=== PATIENT | female | born 1965 | race Caucasian/White ===

== ENCOUNTER → 2016-12-10 | Outpatient (CLI) | payer BC ==
--- NOTE | 2016-12-11 14:03 | MM ---
Reason for exam: screening (asymptomatic). Last mammogram was performed 1 year ago. History: Patient is postmenopausal, has history of endometrial cancer at age 34, and is nulliparous. Family history of breast cancer in maternal aunt at age 64. Physical Findings: A clinical breast exam by your physician is recommended on an annual basis and results should be correlated with mammographic findings. MG Screening Mammo w CAD Bilateral CC and MLO view(s) were taken. Prior study comparison: December 07, 2015, bilateral MG screening mammo w CAD. October 12, 2014, bilateral MG screening mammo w CAD. July 10, 2013, bilateral digital screening mammo w/CAD. There are scattered fibroglandular densities. Scattered benign oil cysts and skin calcifications redemonstrated. No significant changes when compared with prior studies. ASSESSMENT: Negative, BI-RAD 1 RECOMMENDATION: Routine screening mammogram of both breasts in 1 year.
== END | disposition home or self-care (01) ==
LOC: RADMAMWWP 11:06
PROVIDERS: ATTEND Obstetrics & Gynecology
DX: Z12.31 Encounter for screening mammogram for malignant neoplasm of breast (principal)

== ENCOUNTER 2017-07-22 15:36 | Inpatient (IN) | payer BC ==
--- NOTE | 2017-07-22 16:12 | XR ---
EXAMINATION TYPE: XR chest 2V DATE OF EXAM: 07/22/2017 COMPARISON: 01/23/2014 TECHNIQUE: PA and lateral views submitted. HISTORY: Shortness of breath FINDINGS: Bilateral lower lobe infiltrate and small effusion. Heart is enlarged and is postoperative change wit h mild central interstitial prominence. No pneumothorax. IMPRESSION: 1. Basilar infiltrate and small effusion correlate for mild CHF.
[2017-07-22 16:54] LABS: Basophils # (A) 0.1 k/uL (0-0.2); Basophils % (A) 1 %; Eosinophils # (A) 0.1 k/uL (0-0.7); Eosinophils % (A) 2 %; HCT 30.5 % (34.0-46.0); HGB 10.5 gm/dL (11.4-16.0); Lymphocytes # (A) 2.4 k/uL (1.0-4.8); Lymphocytes % (A) 32 %; MCH 27.9 pg (25.0-35.0); MCHC 34.3 g/dL (31.0-37.0); MCV 81.3 fL (80.0-100.0); Mean Platelet Volume 7.6; Monocytes # (A) 0.4 k/uL (0-1.0); Monocytes % (A) 6 %; Neutrophils # (A) 4.4 k/uL (1.3-7.7); Neutrophils % (A) 58 %; Platelet Count 304 k/uL (150-450); Poikilocytosis Slight; RBC 3.75 m/uL (3.80-5.40); WBC 7.5 k/uL (3.8-10.6)
[2017-07-22 17:05] LABS: ALT 16 U/L (9-52); AST 18 U/L (14-36); Albumin 4.3 g/dL (3.5-5.0); Alkaline Phosphatase 53 U/L (38-126); Anion Gap 16 mmol/L; Blood Urea Nitrogen 16 mg/dL (7-17); Calcium 9.2 mg/dL (8.4-10.2); Carbon Dioxide 22 mmol/L (22-30); Chloride 103 mmol/L (98-107); Glucose 141 mg/dL (74-99); INR 1.1 (<1.2); Partial Thromboplastin Time 23.6 sec (22.0-30.0); Potassium 4.4 mmol/L (3.5-5.1); Prothrombin Time 10.5 sec (9.0-12.0); Sodium 141 mmol/L (137-145); Total Bilirubin 0.8 mg/dL (0.2-1.3); Total Protein 7.6 g/dL (6.3-8.2)
[2017-07-22 17:16] LABS: Creatine Kinase 120 U/L (30-135)
[2017-07-22 17:29] LABS: Creatine Kinase MB 2.4 ng/mL (0.0-2.4); Troponin I <0.012 ng/mL (0.000-0.034)
[2017-07-22] MEDS ORDERED: ASPIRIN 81 MG PO STA (20:14)
[2017-07-22] MEDS ORDERED: FUROSEMIDE 10 MG/ML 10 ML VIAL IV STA (20:14)
[2017-07-22] MEDS ORDERED: NITROGLYCERIN OINT 1 INCH/GM PACKET TOPICAL STA (20:14)
[2017-07-22] MEDS: MAGNESIUM SULFATE-D5W PMX 1 GM in DEXTROSE/WATER 1 100ML.BAG IVPB SCH ×2 (20:46→22:51)
--- NOTE | 2017-07-22 22:31 | ED ---
SOB HPI - General Chief Complaint: Shortness of Breath Stated Complaint: SOB Time Seen by Provider: 07/22/17 20:00 Source: patient Mode of arrival: ambulatory Limitations: no limitations - History of Present Illness Initial Comments: This 51-year-old white female presents with a complaint of shortness of breath. This is much worse with any exertion. She denies any actual chest pain. She denies any significant cough. The shortness of breath is worse with lying down and she's been sitting in a recliner the past few nights. She does have a history of valvular surgery approximately 11 years ago. 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 Hodge every 6 months. She usually gets an echocardiogram every 6 months as well. She denies any known coronary artery disease. She denies any pulmonary problems. There is no leg pain. She has had some swelling into her legs and feet which is abnormal for her. She denies any history of congestive heart failure. No other complaints or modifying factors. - Related Data Home Medications Medication Instructions Recorded Confirmed Cetirizine HCl [Zyrtec] 10 mg PO HS 01/23/14 07/22/17 Dorzolamide HCl/Timolol Maleat 1 drop BOTH EYES BID 01/23/14 07/22/17 [Cosopt Eye Drops] Losartan/Hydrochlorothiazide 1 tab PO DAILY 01/23/14 07/22/17 [Hyzaar 100-25 Tablet] Metoprolol Tartrate [Lopressor] 25 mg PO BID 01/23/14 07/22/17 Omeprazole [PriLOSEC] 20 mg PO DAILY 01/23/14 07/22/17 Salmeterol Xinafoate [Serevent 1 puff INHALATION RT-BID PRN 01/23/14 07/22/17 Diskus] glyBURIDE/METFORMIN HCL 2 tab PO BID 01/23/14 07/22/17 [Glucovance 5-500 mg Tablet] Ergocalciferol [Vitamin D2] 50,000 unit PO FR 07/22/17 07/22/17 Rosuvastatin Calcium [Crestor] 10 mg PO HS 07/22/17 07/22/17 Vits A,C,E/Lutein/Minerals 1 tab PO BID 07/22/17 07/22/17 [Ocuvite with Lutein Tablet] amLODIPine [Norvasc] 5 mg PO DAILY 07/22/17 07/22/17 sitaGLIPtin [Januvia] 100 mg PO HS 07/22/17 07/22/17 Allergies Allergy/AdvReac Type Severity Reaction Status Date / Time fluticasone propionate Allergy Unknown Verified 07/22/17 15:57 [From Flovent Diskus] methocarbamol [From Robaxin] Allergy Unknown Verified 07/22/17 15:57 Penicillins Allergy Unknown Verified 07/22/17 15:57 Review of Systems ROS Statement: Those systems with pertinent positive or pertinent negative responses have been documented in the HPI. ROS Other: All systems not noted in ROS Statement are negative. Past Medical History Past Medical History: Asthma, Cancer, Diabetes Mellitus, Hyperlipidemia, Hypertension Additional Past Medical History / Comment(s): cervical CA, glaucoma History of Any Multi-Drug Resistant Organisms: None Reported Past Surgical History: Coronary Bypass/CABG, Hysterectomy Past Psychological History: No Psychological Hx Reported Smoking Status: Never smoker Past Alcohol Use History: None Reported Past Drug Use History: None Reported General Exam - General Exam Comments Initial Comments: GENERAL: The patient is well nourished and well hydrated. VITAL SIGNS: Heart rate, blood pressure, respiratory rate reviewed as recorded in nurse's notes. EYES: Pupils are round and reactive. Extraocular movements are intact. No conjunctival / lid redness or swelling. ENT: No external evidence of injury, swelling, or ecchymosis. Airway is patent. Throat is clear. NECK: Nontender. No swelling or evidence of injury. No subcutaneous emphysema. Trachea is midline. No thyroid mass. HEART: Regular rate and rhythm. Good peripheral pulses. LUNGS/CHEST: Breath sounds clear and equal bilaterally. No rales, rhonchi, or wheezes. No ecchymosis, subcutaneous emphysema, or tenderness. ABDOMEN: Abdomen soft without tenderness. No palpable masses or organomegaly. No peritoneal signs. No abdominal wall swelling or ecchymosis. EXTREMITIES: No extremity tenderness. Normal muscle tone and function. No thoracolumbar tenderness. There may be some very minimal bilateral lower extremity swelling. There is no pitting edema. NEUROLOGIC: Sensation is grossly intact. Cranial nerve exam reveals face is symmetrical, tongue is midline, speech is clear. SKIN: No abrasions or ecchymosis is noted. No induration or masses noted. PSYCHIATRIC: Alert and oriented. Appropriate behavior and judgment. Limitations: no limitations Course Vital Signs 07/22/17 07/22/17 15:55 20:57 Temperature 97.3 F L Pulse Rate 62 Respiratory 18 Rate Blood Pressure 164/74 167/77 O2 Sat by Pulse 100 Oximetry Medical Decision Making - Medical Decision Making The patient was seen and examined. All diagnostics were reviewed. The EKG shows a normal sinus rhythm with a first-degree AV block. There is evidence of a left bundle branch block as well. There is some T-wave inversions in 1 and aVL. The NJ interval is 270, the QRS duration is 164, and the QTc interval is 511. The patient also had a chest x-ray which does show a degree of congestive heart failure per radiology. The laboratory came back showing an elevation of the BNP. In addition, the magnesium is quite low at 1.0. She does receive aspirin as well as some Nitropaste and Lasix intravenously. She does put out a fair amount of urine. It is felt as though she does have a degree of congestive heart failure. It is worrisome as to whether or not her valve is working appropriately. It is felt as though she would benefit from admission with cardiology consult and echocardiogram. She is agreeable. He says discussed with internal medicine and they're agreeable to admission as well. - Lab Data Result diagrams: 07/22/17 16:40 07/22/17 16:40 Lab Results 07/22/17 07/22/17 07/22/17 Range/Units 16:40 16:40 16:40 WBC 7.5 (3.8-10.6) k/uL RBC 3.75 L (3.80-5.40) m/uL Hgb 10.5 L (11.4-16.0) gm/dL Hct 30.5 L (34.0-46.0) % MCV 81.3 (80.0-100.0) fL MCH 27.9 (25.0-35.0) pg MCHC 34.3 (31.0-37.0) g/dL RDW 16.0 H (11.5-15.5) % Plt Count 304 (150-450) k/uL Neutrophils % 58 % Lymphocytes % 32 % Monocytes % 6 % Eosinophils % 2 % Basophils % 1 % Neutrophils # 4.4 (1.3-7.7) k/uL Lymphocytes # 2.4 (1.0-4.8) k/uL Monocytes # 0.4 (0-1.0) k/uL Eosinophils # 0.1 (0-0.7) k/uL Basophils # 0.1 (0-0.2) k/uL Poikilocytosis Slight PT (9.0-12.0) sec INR (<1.2) APTT (22.0-30.0) sec Sodium 141 (137-145) mmol/L Potassium 4.4 (3.5-5.1) mmol/L Chloride 103 (98-107) mmol/L Carbon Dioxide 22 (22-30) mmol/L Anion Gap 16 mmol/L BUN 16 (7-17) mg/dL Creatinine 0.80 (0.52-1.04) mg/dL Est GFR (CKD-EPI)AfAm >90 (>60 ml/min/1.73 sqM) Est GFR (CKD-EPI)NonAf 85 (>60 ml/min/1.73 sqM) Glucose 141 H (74-99) mg/dL Calcium 9.2 (8.4-10.2) mg/dL Magnesium 1.0 L* (1.6-2.3) mg/dL Total Bilirubin 0.8 (0.2-1.3) mg/dL AST 18 (14-36) U/L ALT 16 (9-52) U/L Alkaline Phosphatase 53 (38-126) U/L Total Creatine Kinase 120 (30-135) U/L CK-MB (CK-2) 2.4 (0.0-2.4) ng/mL CK-MB (CK-2) Rel Index 2.0 Troponin I <0.012 (0.000-0.034) ng/mL NT-Pro-B Natriuret Pep pg/mL Total Protein 7.6 (6.3-8.2) g/dL Albumin 4.3 (3.5-5.0) g/dL 07/22/17 07/22/17 Range/Units 16:40 16:40 WBC (3.8-10.6) k/uL RBC (3.80-5.40) m/uL Hgb (11.4-16.0) gm/dL Hct (34.0-46.0) % MCV (80.0-100.0) fL MCH (25.0-35.0) pg MCHC (31.0-37.0) g/dL RDW (11.5-15.5) % Plt Count (150-450) k/uL Neutrophils % % Lymphocytes % % Monocytes % % Eosinophils % % Basophils % % Neutrophils # (1.3-7.7) k/uL Lymphocytes # (1.0-4.8) k/uL Monocytes # (0-1.0) k/uL Eosinophils # (0-0.7) k/uL Basophils # (0-0.2) k/uL Poikilocytosis PT 10.5 (9.0-12.0) sec INR 1.1 (<1.2) APTT 23.6 (22.0-30.0) sec Sodium (137-145) mmol/L Potassium (3.5-5.1) mmol/L Chloride (98-107) mmol/L Carbon Dioxide (22-30) mmol/L Anion Gap mmol/L BUN (7-17) mg/dL Creatinine (0.52-1.04) mg/dL Est GFR (CKD-EPI)AfAm (>60 ml/min/1.73 sqM) Est GFR (CKD-EPI)NonAf (>60 ml/min/1.73 sqM) Glucose (74-99) mg/dL Calcium (8.4-10.2) mg/dL Magnesium (1.6-2.3) mg/dL Total Bilirubin (0.2-1.3) mg/dL AST (14-36) U/L ALT (9-52) U/L Alkaline Phosphatase (38-126) U/L Total Creatine Kinase (30-135) U/L CK-MB (CK-2) (0.0-2.4) ng/mL CK-MB (CK-2) Rel Index Troponin I (0.000-0.034) ng/mL NT-Pro-B Natriuret Pep 1210 pg/mL Total Protein (6.3-8.2) g/dL Albumin (3.5-5.0) g/dL Disposition Clinical Impression: CHF (congestive heart failure), Valvular disease, Hypertension, Left bundle branch block, Hypomagnesemia, Dyspnea, Anemia Disposition: ADMITTED IP TO THIS [facility] Condition: Fair Time of Disposition: 22:37 Decision Date: 07/22/17 Decision Time: 22:37
[2017-07-22] MEDS ORDERED: FORMOTEROL FUMARATE 20 MCG/2 ML NEBU INHALATION PRN (22:40)
[2017-07-23 04:28] LABS: Basophils % (A) 0 %; Eosinophils # (A) 0.1 k/uL (0-0.7); Eosinophils % (A) 2 %; HCT 30.7 % (34.0-46.0); HGB 9.8 gm/dL (11.4-16.0); Hypochromasia Slight; Lymphocytes # (A) 2.5 k/uL (1.0-4.8); Lymphocytes % (A) 36 %; MCH 26.5 pg (25.0-35.0); MCHC 31.9 g/dL (31.0-37.0); MCV 83.3 fL (80.0-100.0); Mean Platelet Volume 7.6; Monocytes # (A) 0.4 k/uL (0-1.0); Monocytes % (A) 6 %; Neutrophils # (A) 3.7 k/uL (1.3-7.7); Neutrophils % (A) 54 %; Platelet Count 266 k/uL (150-450); RBC 3.69 m/uL (3.80-5.40); RDW 15.7 % (11.5-15.5); WBC 6.8 k/uL (3.8-10.6)
[2017-07-23 04:44] LABS: Anion Gap 15 mmol/L; Blood Urea Nitrogen 18 mg/dL (7-17); Calcium 9.3 mg/dL (8.4-10.2); Carbon Dioxide 24 mmol/L (22-30); Chloride 102 mmol/L (98-107); Glucose 138 mg/dL (74-99); Magnesium 1.5 mg/dL (1.6-2.3); Potassium 3.6 mmol/L (3.5-5.1); Sodium 141 mmol/L (137-145)
[2017-07-23 05:12] LABS: Creatine Kinase MB 1.3 ng/mL (0.0-2.4); Troponin I <0.012 ng/mL (0.000-0.034)
[2017-07-23 06:31] LABS: Glucose,Whole Blood 149 mg/dL (75-99)
[2017-07-23] MEDS: PANTOPRAZOLE 40 MG TABLET PO SCH (07:04)
[2017-07-23] MEDS: glipiZIDE 10 MG TAB PO SCH ×2 (07:04→17:27)
[2017-07-23] MEDS: metFORMIN 500 MG TAB PO SCH ×2 (07:04→17:27)
[2017-07-23] MEDS: ASPIRIN 325 MG TAB PO SCH (08:40)
[2017-07-23] MEDS: FUROSEMIDE 10 MG/ML 4 ML VIAL IV SCH ×2 (08:41→20:11)
[2017-07-23] MEDS: amLODIPine 5 MG TAB PO SCH (08:41)
[2017-07-23] MEDS: ENOXAPARIN 40 MG/0.4 ML SYRINGE SQ SCH (08:42)
[2017-07-23] MEDS: VIT A,C & E-LUTEIN-MINERALS 1 EACH TAB PO SCH ×2 (08:42→20:10)
[2017-07-23] MEDS: METOPROLOL TARTRATE 25 MG TAB PO SCH ×2 (08:42→20:10)
[2017-07-23] MEDS: NITROGLYCERIN OINT 1 INCH/GM PACKET TOPICAL SCH ×4 (08:42→20:12)
[2017-07-23] MEDS ORDERED: PNEUMOCOCCAL VACC-PNEUMOVAX 23 25 MCG/0.5 ML VIAL IM ONE (09:00)
[2017-07-23] MEDS ORDERED: LOSARTAN-HCTZ 50-12.5 MG 1 EACH TAB PO SCH (09:00)
[2017-07-23 11:39] LABS: Glucose,Whole Blood 225 mg/dL (75-99)
--- NOTE | 2017-07-23 11:39 | ECHOF ---
Referral Reason:Heart Failure MEASUREMENTS -------- HEIGHT: 154.9 cm WEIGHT: 81.7 kg BP: 125/59 IVSd: 0.9 cm (0.6 - 1.1) LVIDd: 5.6 cm (3.9 - 5.3) LVPWd: 1.2 cm (0.6 - 1.1) IVSs: 1.3 cm LVIDs: 3.8 cm LVPWs: 1.9 cm LAESV Index (A-L): 49.63 ml/m Ao Diam: 2.9 cm (2.0 - 3.7) AV Cusp: 1.9 cm (1.5 - 2.6) LA Diam: 4.9 cm (2.7 - 3.8) MV EXCURSION: 12.777 mm (> 18.000) MV EF SLOPE: 56 mm/s (70 - 150) EPSS: 1.9 cm MV E Fritz: 1.63 m/s MV DecT: 256 ms MV A Fritz: 0.21 m/s MV E/A Ratio: 7.76 AV maxP.18 mmHg AV meanP.60 mmHg AR PHT: 707 ms RAP: 5.00 mmHg RVSP: 42.07 mmHg FINDINGS -------- Sinus rhythm. This was a technically difficult study with suboptimal views. The left ventricular size upper limits of normal. There is borderline concentric left ventricular h ypertrophy. Overall left ventricular systolic function is mild-moderately impaired with, an EF betw een 40 - 45 %. There is paradoxical/dysynergic septal motion consistent with post-operative status. Apical septum LV wall motion is hypokinetic. The right ventricle is normal in size and function. LA is severely dilated >40 ml/m2 The right atrium is normal in size. Lumason used There is mild aortic regurgitation. There is mild aortic stenosis present. Peak/mean gradient acr oss the Aortic Valve is 20.18mmHg / 11.60mmHg. Can't exclude possible Bicuspid Aov. The mitral valve leaflets are mildly thickened. Cbaalcct-ec-zshjie mitral regurgitation is present. Moderate to severe tricuspid regurgitation present. There is mild pulmonary hypertension. The rig ht ventricular systolic pressure, as measured by Doppler, is 42.07mmHg. Pulmonic valve appears structurally normal. The aortic root size is normal. Normal inferior vena cava with normal inspiratory collapse consistent with estimated right atrial pre ssure of 5 mmHg. The pericardium is normal. CONCLUSIONS -------- 1. Sinus rhythm. 2. This was a technically difficult study with suboptimal views. 3. The left ventricular size is normal. 4. There is borderline concentric left ventricular hypertrophy. 5. Overall left ventricular systolic function is mild-moderately impaired with, an EF between 40 - 45 %. 6. There is paradoxical/dysynergic septal motion consistent with post-operative status. 7. Apical septum LV wall motion is hypokinetic. 8. The right ventricle is normal in size and function. 9. LA is severely dilated >40 ml/m2 10. The right atrium is normal in size. 11. Lumason used 12. There is mild aortic regurgitation. 13. There is mild aortic stenosis present. 14. Peak/mean gradient across the Aortic Valve is 20.18mmHg / 11.60mmHg. 15. Can't exclude possible Bicuspid Aov. 16. The mitral valve leaflets are mildly thickened. 17. Moderate to severe tricuspid regurgitation present. 18. There is mild pulmonary hypertension. 19. The right ventricular systolic pressure, as measured by Doppler, is 42.07mmHg. 20. Pulmonic valve appears structurally normal. 21. The aortic root size is normal. 22. Normal inferior vena cava with normal inspiratory collapse consistent with estimated right atrial pressure of 5 mmHg. 23. The pericardium is normal. [employer] BR[employer] ARTIST: Divya [place]
[2017-07-23] MEDS ORDERED: Magnesium Replacement Protocol 1 EACH MISC MISCELLANE PRN (12:14)
[2017-07-23] MEDS ORDERED: Potassium Replacement Protocol 1 EACH MISC MISCELLANE PRN (12:14)
[2017-07-23 12:16] LABS: Creatine Kinase MB 1.5 ng/mL (0.0-2.4); Troponin I <0.012 ng/mL (0.000-0.034)
--- NOTE | 2017-07-23 12:37 | P.HPIM ---
History of Present Illness Patient is a 51-year-old female with history of septoplasty for hypertrophic cardiomyopathy came in with compensative shortness of breath? Orthopnea and PND going on for about a week progressively worse. Patient denied any fever chills cough runny nose. Patient is found to have bilateral pleural effusions pulmonary edema on the chest x-ray with mildly elevated BNP of 1600 echocardiogram showed ejection fraction of 45%. Patient is receiving Lasix and the improvement in shortness of breath. Patient presently doesn't have any pedal edema apparently patient had pedal edema when she came in her JVD also improved. Patient was evaluated by cardiology patient is on 40 IV twice a day of Lasix patient doesn't take Lasix at home is on losartan hydrochloride thiazide combination at home. Review of Systems REVIEW OF SYSTEMS: CONSTITUTIONAL: No fever, no malaise, no fatigue. HEENT: No recent visual problems or hearing problems. Denied any sore throat. CARDIOVASCULAR: No chest pain,no palpitations, no syncope. PULMONARY: no cough, no hemoptysis. GASTROINTESTINAL: No diarrhea, no nausea, no vomiting, no abdominal pain. Normoactive bowel sounds. NEUROLOGICAL: No headaches, no weakness, no numbness. HEMATOLOGICAL: Denies any bleeding or petechiae. GENITOURINARY: Denies any burning micturition, frequency, or urgency. MUSCULOSKELETAL/RHEUMATOLOGICAL: Denies any joint pain, swelling, or any muscle pain. ENDOCRINE: Denies any polyuria or polydipsia. The rest of the 14-point review of systems is negative. Past Medical History Past Medical History: Asthma, Cancer, Diabetes Mellitus, Hyperlipidemia, Hypertension Additional Past Medical History / Comment(s): cervical CA, glaucoma (both eyes) . pt has hypertrophic cardiomyopathy History of Any Multi-Drug Resistant Organisms: None Reported Past Surgical History: Coronary Bypass/CABG, Heart Catheterization, Hysterectomy Past Anesthesia/Blood Transfusion Reactions: No Reported Reaction Past Psychological History: No Psychological Hx Reported Smoking Status: Never smoker Past Alcohol Use History: None Reported Past Drug Use History: None Reported - Past Family History Father Family Medical History: Myocardial Infarction ([place]) Mother Family Medical History: AFIB, Cancer Additional Family Medical History / Comment(s): unknown type of CA Medications and Allergies Home Medications Medication Instructions Recorded Confirmed Type Cetirizine HCl [Zyrtec] 10 mg PO HS 01/23/14 07/22/17 History Dorzolamide HCl/Timolol Maleat 1 drop BOTH EYES BID 01/23/14 07/22/17 History [Cosopt Eye Drops] Losartan/Hydrochlorothiazide 1 tab PO DAILY 01/23/14 07/22/17 History [Hyzaar 100-25 Tablet] Metoprolol Tartrate [Lopressor] 25 mg PO BID 01/23/14 07/22/17 History Omeprazole [PriLOSEC] 20 mg PO DAILY 01/23/14 07/22/17 History Salmeterol Xinafoate [Serevent 1 puff INHALATION RT-BID PRN 01/23/14 07/22/17 History Diskus] glyBURIDE/METFORMIN HCL 2 tab PO BID 01/23/14 07/22/17 History [Glucovance 5-500 mg Tablet] Ergocalciferol [Vitamin D2] 50,000 unit PO FR 07/22/17 07/22/17 History Rosuvastatin Calcium [Crestor] 10 mg PO HS 07/22/17 07/22/17 History Vits A,C,E/Lutein/Minerals 1 tab PO BID 07/22/17 07/22/17 History [Ocuvite with Lutein Tablet] amLODIPine [Norvasc] 5 mg PO DAILY 07/22/17 07/22/17 History sitaGLIPtin [Januvia] 100 mg PO HS 07/22/17 07/22/17 History Allergies Allergy/AdvReac Type Severity Reaction Status Date / Time fluticasone propionate Allergy Unknown Verified 07/22/17 15:57 [From Flovent Diskus] methocarbamol [From Robaxin] Allergy Unknown Verified 07/22/17 15:57 Penicillins Allergy Unknown Verified 07/22/17 15:57 Physical Exam Vitals: Vital Signs Temp Pulse Pulse Resp BP BP Pulse Ox 07/23/17 11:05 97 F L 55 L 16 160/74 97 07/23/17 10:36 98.2 F 59 L 17 160/75 99 07/23/17 08:30 65 17 168/77 100 07/23/17 07:26 58 L 17 136/63 97 07/23/17 03:27 56 L 17 07/23/17 03:24 97.8 F 56 L 17 125/59 96 07/23/17 00:00 97.6 F 55 L 17 141/63 92 L 07/22/17 23:49 97.5 F L 56 L 17 137/68 95 07/22/17 22:49 57 L 20 176/81 96 07/22/17 20:57 167/77 07/22/17 15:55 97.3 F L 62 18 164/74 100 Intake and Output 07/22/17 07/23/17 07/23/17 22:59 06:59 14:59 Intake Total 260 Output Total 600 Balance 260 -600 Intake: IV 160 0.9 nacl 160 Intake, IV Titration 100 Amount Magnesium Sulfate-D5w Pmx 100 1 gm In Dextrose/Water 1 100ml.bag @ 100 mls/hr IVPB Q1H [facility] Rx#: [id number] Output: Urine 600 Other: Voiding Method Toilet Toilet # Voids 1 Weight 83.461 kg 81.8 kg PHYSICAL EXAMINATION: GENERAL: The patient is alert and oriented x3, not in any acute distress. Well developed, well nourished. HEENT: Pupils are round and equally reacting to light. EOMI. No scleral icterus. No conjunctival pallor. Normocephalic, atraumatic. No pharyngeal erythema. No thyromegaly. CARDIOVASCULAR: S1 and S2 present. No murmurs, rubs, or gallops. PULMONARY: Chest is clear to auscultation, no wheezing or crackles. ABDOMEN: Soft, nontender, nondistended, normoactive bowel sounds. No palpable organomegaly. MUSCULOSKELETAL: No joint swelling or deformity. EXTREMITIES: No cyanosis, clubbing, or pedal edema. NEUROLOGICAL: Gross neurological examination did not reveal any focal deficits. SKIN: No rashes. Results CBC & Chem 7: 07/23/17 04:12 07/23/17 04:12 Labs: Abnormal Lab Results - Last 24 Hours (Table) 07/22/17 07/22/17 07/23/17 Range/Units 16:40 16:40 04:12 RBC 3.75 L 3.69 L (3.80-5.40) m/uL Hgb 10.5 L 9.8 L (11.4-16.0) gm/dL Hct 30.5 L 30.7 L (34.0-46.0) % RDW 16.0 H 15.7 H (11.5-15.5) % BUN (7-17) mg/dL Glucose 141 H (74-99) mg/dL POC Glucose (mg/dL) (75-99) mg/dL Magnesium 1.0 L* (1.6-2.3) mg/dL 07/23/17 07/23/17 07/23/17 Range/Units 04:12 06:27 11:32 RBC (3.80-5.40) m/uL Hgb (11.4-16.0) gm/dL Hct (34.0-46.0) % RDW (11.5-15.5) % BUN 18 H (7-17) mg/dL Glucose 138 H (74-99) mg/dL POC Glucose (mg/dL) 149 H 225 H (75-99) mg/dL Magnesium 1.5 L (1.6-2.3) mg/dL Thrombosis Risk Factor Assmnt - Choose All That Apply Each Factor Represents 1 point: Age 41-60 years Other Risk Factors: No Thrombosis Risk Factor Assessment Total Risk Factor Score: 1 Thrombosis Risk Factor Assessment Level: Low Risk Assessment and Plan Plan: -Shortness of breath: Secondary to acute on chronic systolic dysfunction with acute exacerbation. Patient will return Lasix today will recheck her basic metabolic profile tomorrow possibility of discharge tomorrow losartan will be started and had losartan had a for visit commendation will be discontinued. - hypertrophic cardiomyopathy status post septoplasty in the past. -Type 2 diabetes mellitus: Patient will be resumed on home regimen monitor blood sugars titrate accordingly. -Hypertension -Asthma without any acute exacerbation -Glaucoma.
--- NOTE | 2017-07-23 12:49 | CONS ---
CONSULTATION CHIEF COMPLAINT: Shortness of breath. Candi is a 51-year-old lady with history of hypertrophic obstructive cardiomyopathy, status post resection of the septum at [facility], who presented to hospital complaining of shortness of breath. She has been becoming progressively short of breath for the last two weeks. Does not have much of a leg edema. There is no history of paroxysmal nocturnal dyspnea or orthopnea. She was trying to get into her primary care physician's office, could not, hence came to the ER from where she is getting admitted. There is no history of coronary artery disease. There is no history of valvular heart disease. At the time of my evaluation in the emergency room, she appears comfortable at rest and is free of symptoms. She has had 2 sets of troponins that are negative and BNP is elevated at 1210. Hemoglobin is low at 9.8, which is a significant drop from 2015 when her hemoglobin was running around 13. PAST MEDICAL HISTORY: Significant for hypertrophic cardiomyopathy status post surgery, hypertension, dyslipidemia, [id number] diabetes, and COPD. MEDICATIONS: At home included Crestor, Januvia, Norvasc, Prilosec, Lopressor, Hyzaar, Zyrtec, Glucovance, and Serevent. Allergic to PENICILLIN, ROBAXIN, and FLOVENT. FAMILY HISTORY: Negative for premature coronary artery disease. SOCIAL HISTORY: Negative for smoking, EtOH abuse, or drug abuse. REVIEW OF SYSTEMS: HEENT is unremarkable. CARDIAC: As described above. RESPIRATORY: Negative. GI: Negative. GENITOURINARY: Negative. ALLERGY/IMMUNOLOGY: Negative. SKIN: Negative. MUSCULOSKELETAL: Negative. ENDOCRINE: Negative. DERM: Negative. CONSTITUTIONAL: Negative. ONCOLOGICAL: Negative. Rest of the system review is not relevant. PHYSICAL EXAM: Comfortable at rest. Afebrile. Heart rate is 60 beats per minute. Blood pressure is 160/75, respiratory rate is 18. Chest exam reveals good air entry bilaterally. Heart exam reveals first and second heart sounds and ejection systolic murmur in the aortic area. Abdomen is soft. Exam of the extremities did not reveal any edema. Peripheral pulses are palpable. LABS: Showed that she is anemic. Tropes are negative. BNP is elevated. ASSESSMENT: 1. Shortness of breath, probably secondary to acute onset diastolic heart failure. 2. Uncontrolled hypertension. 3. History of hypertrophic cardiomyopathy. PLAN: I will treat the patient with IV Lasix. Continue the Norvasc, aspirin Lipitor, Lopressor and the Hyzaar that she is currently on. We can increase the dose of Norvasc to 10 mg for more optimal control of blood pressure. Will review the echo. I expect her to get better rapidly and hopefully home tomorrow or the day after. MMODL / IJN: [id number] /
[2017-07-23] MEDS: INSULIN ASPART 100 UNIT/ML 1 ML 10 ML VIAL SQ SCH ×3 (13:00→22:31)
[2017-07-23] MEDS ORDERED: POTASSIUM CHLORIDE ER 20 MEQ TAB.ER PO SCH (13:00)
[2017-07-23] MEDS: DORZOLAMIDE-TIMOLOL 2-0.5% DROPS 10 ML BTL BOTH EYES SCH ×2 (13:15→20:11)
[2017-07-23] MEDS: MAGNESIUM SULFATE-D5W PMX 1 GM in DEXTROSE/WATER 1 100ML.BAG IVPB SCH ×2 (13:16→14:21)
[2017-07-23 14:29] VITALS: BMI 35.2
[2017-07-23 16:56] LABS: Glucose,Whole Blood 215 mg/dL (75-99)
[2017-07-23 20:41] LABS: Glucose,Whole Blood 138 mg/dL (75-99)
[2017-07-23] MEDS ORDERED: ATORVASTATIN 20 MG TAB PO SCH (21:00)
[2017-07-23] MEDS ORDERED: LORATADINE 10 MG TAB PO SCH (21:00)
[2017-07-23] MEDS ORDERED: LINAGLIPTIN 5 MG TABLET PO SCH (21:00)
[2017-07-23 21:14] LABS: Hemoglobin A1C 5.1 % (4.0-6.0)
[2017-07-24 05:51] LABS: Glucose,Whole Blood 110 mg/dL (75-99)
[2017-07-24] MEDS: PANTOPRAZOLE 40 MG TABLET PO SCH (07:04)
[2017-07-24] MEDS: glipiZIDE 10 MG TAB PO SCH (07:04)
[2017-07-24] MEDS: metFORMIN 500 MG TAB PO SCH (07:05)
[2017-07-24] MEDS: INSULIN ASPART 100 UNIT/ML 1 ML 10 ML VIAL SQ SCH ×2 (07:05→12:12)
[2017-07-24 08:01] LABS: Calcium 9.8 mg/dL (8.4-10.2); Magnesium 1.5 mg/dL (1.6-2.3); Potassium 4.3 mmol/L (3.5-5.1)
[2017-07-24 08:43] VITALS: RESP 16; TEMP 97.4
[2017-07-24] MEDS ORDERED: LOSARTAN 50 MG TAB PO SCH (09:00)
[2017-07-24] MEDS: VIT A,C & E-LUTEIN-MINERALS 1 EACH TAB PO SCH (09:12)
[2017-07-24] MEDS: NITROGLYCERIN OINT 1 INCH/GM PACKET TOPICAL SCH ×2 (09:12→12:16)
[2017-07-24] MEDS: DORZOLAMIDE-TIMOLOL 2-0.5% DROPS 10 ML BTL BOTH EYES SCH (09:12)
[2017-07-24] MEDS: ASPIRIN 325 MG TAB PO SCH (09:12)
[2017-07-24] MEDS: FUROSEMIDE 10 MG/ML 4 ML VIAL IV SCH (09:13)
[2017-07-24] MEDS: ENOXAPARIN 40 MG/0.4 ML SYRINGE SQ SCH (09:13)
[2017-07-24] MEDS: MAGNESIUM SULFATE-D5W PMX 1 GM in DEXTROSE/WATER 1 100ML.BAG IVPB SCH ×4 (09:52→13:14)
[2017-07-24] MEDS: amLODIPine 5 MG TAB PO SCH (10:33)
[2017-07-24 11:13] VITALS: BP 156/74; PULSE 74
[2017-07-24 11:53] LABS: Glucose,Whole Blood 326 mg/dL (75-99)
--- NOTE | 2017-07-24 13:07 | P.DS ---
Providers Date of admission: 07/22/17 22:41 Attending physician: Fish Hensley Consults: 07/22/17 22:38 Consult Physician Routine Consulting Provider: Madeline Hodge Consult Reason/Comments: chf, valvular disease Do you want consulting provider notified?: Yes Primary care physician: Rubens Rivera [facility] Course: 51-year-old female with history of septoplasty for hypertrophic cardiomyopathy came in with compensative shortness of breath? Orthopnea and PND going on for about a week progressively worse. Patient denied any fever chills cough runny nose. Patient is found to have bilateral pleural effusions pulmonary edema on the chest x-ray with mildly elevated BNP of 1600 echocardiogram showed ejection fraction of 45%. Patient is receiving Lasix and the improvement in shortness of breath. Patient presently doesn't have any pedal edema apparently patient had pedal edema when she came in her JVD also improved. Patient was evaluated by cardiology patient is on 40 IV twice a day of Lasix patient doesn't take Lasix at home is on losartan hydrochloride thiazide combination at home. 07/24/2017 Patient is clinically doing well patient is fairly euvolemic patient will be discharged on 40 mg of Lasix daily. Patient will be switched to losartan. Patient has first-degree heart block asymptomatic bradycardia patient's metoprolol dose will be switched to 12.5 twice a day from 25 twice a day. PHYSICAL EXAMINATION: GENERAL: The patient is alert and oriented x3, not in any acute distress. Well developed, well nourished. HEENT: Pupils are round and equally reacting to light. EOMI. No scleral icterus. No conjunctival pallor. Normocephalic, atraumatic. No pharyngeal erythema. No thyromegaly. CARDIOVASCULAR: S1 and S2 present. No murmurs, rubs, or gallops. PULMONARY: Chest is clear to auscultation, no wheezing or crackles. ABDOMEN: Soft, nontender, nondistended, normoactive bowel sounds. No palpable organomegaly. MUSCULOSKELETAL: No joint swelling or deformity. EXTREMITIES: No cyanosis, clubbing, or pedal edema. NEUROLOGICAL: Gross neurological examination did not reveal any focal deficits. SKIN: No rashes. Shortness of breath: Secondary to acute on chronic systolic dysfunction with acute exacerbation. P - hypertrophic cardiomyopathy status post septoplasty in the past. -Type 2 diabetes mellitus: -Hypertension -Asthma without any acute exacerbation -Glaucoma. -Chronic anemia need further evaluation as an outpatient patient doesn't have any acute bleed Patient Condition at Discharge: Fair Plan - Discharge Summary Discharge Rx Participant: No New Discharge Prescriptions: New Furosemide [Lasix] 40 mg PO DAILY #30 tablet Losartan [Cozaar] 100 mg PO DAILY #30 tab Continue Dorzolamide HCl/Timolol Maleat [Cosopt Eye Drops] 1 drop BOTH EYES BID Cetirizine HCl [Zyrtec] 10 mg PO HS Salmeterol Xinafoate [Serevent Diskus] 1 puff INHALATION RT-BID PRN PRN Reason: Shortness Of Breath glyBURIDE/METFORMIN HCL [Glucovance 5-500 mg Tablet] 2 tab PO BID Omeprazole [PriLOSEC] 20 mg PO DAILY Ergocalciferol [Vitamin D2 (DRISDOL)] 50,000 unit PO FR sitaGLIPtin [Januvia] 100 mg PO HS amLODIPine [Norvasc] 5 mg PO DAILY Vits A,C,E/Lutein/Minerals [Ocuvite with Lutein Tablet] 1 tab PO BID Rosuvastatin Calcium [Crestor] 10 mg PO HS Changed Metoprolol Tartrate [Lopressor] 12.5 mg PO BID #0 Discontinued Losartan/Hydrochlorothiazide [Hyzaar 100-25 Tablet] 1 tab PO DAILY Discharge Medication List Cetirizine HCl [Zyrtec] 10 mg PO HS 01/23/14 [History] Dorzolamide HCl/Timolol Maleat [Cosopt Eye Drops] 1 drop BOTH EYES BID 01/23/14 [History] Omeprazole [PriLOSEC] 20 mg PO DAILY 01/23/14 [History] Salmeterol Xinafoate [Serevent Diskus] 1 puff INHALATION RT-BID PRN 01/23/14 [ History] glyBURIDE/METFORMIN HCL [Glucovance 5-500 mg Tablet] 2 tab PO BID 01/23/14 [ History] Ergocalciferol [Vitamin D2 (DRISDOL)] 50,000 unit PO FR 07/22/17 [History] Rosuvastatin Calcium [Crestor] 10 mg PO HS 07/22/17 [History] Vits A,C,E/Lutein/Minerals [Ocuvite with Lutein Tablet] 1 tab PO BID 07/22/17 [ History] amLODIPine [Norvasc] 5 mg PO DAILY 07/22/17 [History] sitaGLIPtin [Januvia] 100 mg PO HS 07/22/17 [History] Furosemide [Lasix] 40 mg PO DAILY #30 tablet 07/24/17 [Rx] Losartan [Cozaar] 100 mg PO DAILY #30 tab 07/24/17 [Rx] Metoprolol Tartrate [Lopressor] 12.5 mg PO BID #0 07/24/17 [Rx] Follow up Appointment(s)/Referral(s): Jaylen Art MD [Primary Care Provider] - 1 Week Isaac Hilario MD [STAFF PHYSICIAN] - 1 Week Patient Instructions/Handouts: Heart Failure (DC) Discharge Disposition: HOME SELF-CARE
[2017-07-24] MEDS: METOPROLOL TARTRATE 25 MG TAB PO SCH (13:21)
--- NOTE | 2017-07-24 15:17 | P.PN ---
Subjective Progress Note Date: 07/24/17 This 51-year-old female with history of hypertrophic cardiomyopathy status post resection of the septum at [facility] who presents to the hospital with symptoms of shortness of breath. Patient also has a history of hypertension, hyperlipidemia, diabetes, and COPD. Patient was felt to be in mild heart failure and was diuresed with IV Lasix. Her blood pressure was also significantly elevated on admission here. Her EKG showed normal sinus rhythm with a long first-degree AV block, repeat EKG was performed today, continue to show an extended first-degree AV block. Patient did get up and ambulate in the hallway, heart rate up into the 70s. Asymptomatic today. He shouldn't is on beta catia 25 mg by mouth twice a day which she was on prior to admission as well. Echocardiogram with Doppler study was performed which revealed mild to moderately impaired LV function with an EF of 40-45%. Sodium 141, potassium 4.3 , BUN 28, creatinine 1.1. Magnesium 1.5 Objective - Vital Signs Vital signs: Vital Signs Temp 97.4 F L 07/24/17 11:12 Pulse 74 07/24/17 11:13 Resp 16 07/24/17 11:13 BP 156/74 07/24/17 11:12 Pulse Ox 98 07/24/17 11:12 Intake & Output 07/23/17 07/24/17 07/24/17 18:59 06:59 18:59 Intake Total 260 Output Total 1300 1600 1200 Balance -1300 -1600 -940 Weight 81.8 kg 83 kg 80.6 kg Intake: Oral 260 Output: Urine 1300 1600 1200 Other: Voiding Method Toilet Toilet Toilet # Voids 2 - Exam PHYSICAL EXAMINATION: HEENT: Head is atraumatic, normocephalic. Pupils equal, round. Neck is supple. There is no elevated jugular venous pressure. HEART EXAMINATION: Heart S1 S2 1 systolic ejection murmur is heard. CHEST EXAMINATION: Lungs are clear to auscultation and precussion. No chest wall tenderness is noted on palpation or with deep breathing. ABDOMEN: Soft, nontender. Bowel sounds are heard. No organomegaly noted. EXTREMITIES: 2+ peripheral pulses with no evidence of peripheral edema and no calf tenderness noted. NEUROLOGIC patient is awake, alert and oriented -3. . - Labs CBC & Chem 7: 07/23/17 04:12 07/24/17 06:27 Labs: Abnormal Lab Results - Last 24 Hours (Table) 07/23/17 07/23/17 07/24/17 Range/Units 16:35 20:40 05:50 BUN (7-17) mg/dL Creatinine (0.52-1.04) mg/dL Glucose (74-99) mg/dL POC Glucose (mg/dL) 215 H 138 H 110 H (75-99) mg/dL Magnesium (1.6-2.3) mg/dL 07/24/17 07/24/17 Range/Units 06:27 11:44 BUN 28 H (7-17) mg/dL Creatinine 1.12 H (0.52-1.04) mg/dL Glucose 112 H (74-99) mg/dL POC Glucose (mg/dL) 326 H (75-99) mg/dL Magnesium 1.5 L (1.6-2.3) mg/dL Microbiology - Last 24 Hours (Table) 07/22/17 16:40 Blood Culture - Preliminary Blood No Growth after 24 hours Assessment and Plan Plan: Assessment and plan #1 systolic congestive heart failure acute on chronic #2 hypertrophic cardiopathy status post septoplasty in the past #3 diabetes #4 hypertension #5 asthma #6 left bundle-branch block pattern with 1 degree AV block Plan From cardiology's perspective, patient may be able to be discharged home once cleared by the primary. We will continue the patient on her current dose of beta catia at 25 mg one tablet by mouth twice a day. A follow-up appointment will be made with Dr. Hodge in the office post discharge. DNP note has been reviewed, I agree with a documented findings and plan of care. Patient was seen and examined.
[2017-07-26] MEDS ORDERED: ERGOCALCIFEROL 50,000 UNIT CAP PO SCH (09:00)
== END 2017-07-24 16:21 | disposition home or self-care (01) | DRG 293 ==
LOC: EC 15:36 → 6SEL 22:41
PROVIDERS: ADMIT Internal Medicine; ATTEND Internal Medicine
DX: I11.0 Hypertensive heart disease with heart failure (principal); I42.1 Obstructive hypertrophic cardiomyopathy; E83.42 Hypomagnesemia; I50.33 Acute on chronic diastolic (congestive) heart failure; D64.9 Anemia, unspecified; E11.9 Type 2 diabetes mellitus without complications; E78.5 Hyperlipidemia, unspecified; H40.9 Unspecified glaucoma; I44.0 Atrioventricular block, first degree; I44.7 Left bundle-branch block, unspecified; J44.9 Chronic obstructive pulmonary disease, unspecified; R00.1 Bradycardia, unspecified; Z79.84 Long term (current) use of oral hypoglycemic drugs; Z79.899 Other long term (current) drug therapy; Z88.0 Allergy status to penicillin; Z88.8 Allergy status to other drugs, medicaments and biological substances; Z90.710 Acquired absence of both cervix and uterus; Z85.41 Personal history of malignant neoplasm of cervix uteri; Z82.49 Family history of ischemic heart disease and other diseases of the circulatory system
CPT/HCPCS: 36415; 71046; 80048; 80053; 82550; 82553; 83036; 83735; 83880; 84484; 85025; 85610; 85730; 87040; 93005; 93306; 96365; 96366; 96372; 96375; 96376; 99285

== ENCOUNTER → 2017-10-11 | Outpatient (CLI) | payer BC ==
[2017-10-11 12:58] VITALS: BMI 32.5
== END | disposition home or self-care (01) ==
LOC: MNTWWP 09:10
PROVIDERS: ATTEND Internal Medicine Interventional Cardiology
DX: E11.9 Type 2 diabetes mellitus without complications (principal); I10 Essential (primary) hypertension
CPT/HCPCS: 97802

== ENCOUNTER → 2018-03-31 | Outpatient (CLI) | payer BC ==
--- NOTE | 2018-04-01 13:11 | MM ---
Reason for exam: screening (asymptomatic). Last mammogram was performed 1 year and 4 months ago. History: Patient is postmenopausal, has history of endometrial cancer at age 34, and is nulliparous. Family history of breast cancer in maternal aunt at age 64. Physical Findings: A clinical breast exam by your physician is recommended on an annual basis and results should be correlated with mammographic findings. MG Screening Mammo w CAD Bilateral CC and MLO view(s) were taken. Prior study comparison: December 10, 2016, bilateral MG screening mammo w CAD. December 07, 2015, bilateral MG screening mammo w CAD. There are scattered fibroglandular densities. No significant changes when compared with prior studies. ASSESSMENT: Benign, BI-RAD 2 RECOMMENDATION: Routine screening mammogram of both breasts in 1 year.
== END ==
LOC: RADMAMWWP 16:02
PROVIDERS: ATTEND Obstetrics & Gynecology
DX: Z12.31 Encounter for screening mammogram for malignant neoplasm of breast (principal); Z80.3 Family history of malignant neoplasm of breast
CPT/HCPCS: 77067

== ENCOUNTER 2018-08-22 15:38 | Observation (INO) | payer BC ==
[2018-08-22 18:09] LABS: Basophils % (A) 0 %; Eosinophils # (A) 0.2 k/uL (0-0.7); Eosinophils % (A) 3 %; HCT 32.1 % (34.0-46.0); HGB 10.7 gm/dL (11.4-16.0); Lymphocytes % (A) 36 %; MCH 27.5 pg (25.0-35.0); MCHC 33.3 g/dL (31.0-37.0); MCV 82.6 fL (80.0-100.0); Mean Platelet Volume 7.5; Monocytes # (A) 0.5 k/uL (0-1.0); Monocytes % (A) 6 %; Neutrophils # (A) 4.4 k/uL (1.3-7.7); Neutrophils % (A) 53 %; Platelet Count 234 k/uL (150-450); RBC 3.88 m/uL (3.80-5.40); RDW 15.4 % (11.5-15.5); WBC 8.3 k/uL (3.8-10.6)
[2018-08-22 18:12] LABS: Albumin 4.9 g/dL (3.5-5.0); Calcium 10.3 mg/dL (8.4-10.2); Potassium 4.6 mmol/L (3.5-5.1); Total Bilirubin 0.7 mg/dL (0.2-1.3); Total Protein 8.4 g/dL (6.3-8.2)
--- NOTE | 2018-08-22 18:14 | XR ---
EXAMINATION TYPE: XR chest 2V DATE OF EXAM: 08/22/2018 COMPARISON: 07/22/2017 HISTORY: Difficulty breathing TECHNIQUE: Frontal and lateral views of the chest are obtained. FINDINGS: There is no heart failure nor confluent pneumonic infiltrate. Heart appears slightly enlar ged. There are sternal wires. There is no pleural effusion. There are chest leads. IMPRESSION: Borderline cardiomegaly. There is clearing of the mild heart failure compared to old exa m.
[2018-08-22 18:20] LABS: INR 0.9 (<1.2); Partial Thromboplastin Time 24.8 sec (22.0-30.0)
[2018-08-22] MEDS ORDERED: IPRATROPIUM-ALBUTEROL 3 ML NEB INHALATION STA (18:26)
--- NOTE | 2018-08-22 19:07 | ED ---
SOB HPI - General Chief Complaint: Shortness of Breath Stated Complaint: LAILA Time Seen by Provider: 08/22/18 17:19 Source: patient Mode of arrival: ambulatory Limitations: no limitations - History of Present Illness Initial Comments: 52-year-old female with history of CHF, DM, HTN presenting today for chief complaint of shortness of breath with exertion increasing times one week. Patient states she has history of CHF, she states her last exacerbation hospitalization was when she was diagnosed in June 2017. Patient states her dyspnea on exertion that has been ongoing for the past week feels identical to when she was hospitalized last. Patient states she has had intermittent bilateral leg swelling. She states it comes and goes. She states she has gained 8-10 pounds in the past 2 weeks. Patient states she has been compliant with her Lasix of 20 mg daily. Patient denies any chest pain, back pain nausea vomiting epigastric or abdominal pain. Patient denies any shortness of breath at rest.patient denies fever, chills, cough, night sweats, hemoptysis, unilateral leg swelling, history of DVT or pulmonary embolism she denies active cancer recent surgical procedures/hospitalization. When patient's symptoms persisted today she presents emergency department for evaluation denies any significant increase in the dyspnea on exertion. Upon arrival patient appears well no signs of acute or overt respiratory distress. Patient oxygenated well on room air. Pt splunk consultant Dr. Hodge. PCP Rubens. - Related Data Home Medications Medication Instructions Recorded Confirmed Cetirizine HCl [Zyrtec] 10 mg PO HS 01/23/14 08/22/18 Dorzolamide HCl/Timolol Maleat 1 drop BOTH EYES BID 01/23/14 08/22/18 [Cosopt Eye Drops] Omeprazole [PriLOSEC] 20 mg PO DAILY 01/23/14 08/22/18 Salmeterol Xinafoate [Serevent 1 puff INHALATION RT-BID PRN 01/23/14 08/22/18 Diskus] glyBURIDE/METFORMIN HCL 2 tab PO BID 01/23/14 08/22/18 [Glucovance 5-500 mg Tablet] Ergocalciferol [Vitamin D2 50,000 unit PO FR 07/22/17 08/22/18 (DRISDOL)] Rosuvastatin Calcium [Crestor] 10 mg PO Q48H 07/22/17 08/22/18 amLODIPine [Norvasc] 5 mg PO DAILY 07/22/17 08/22/18 Furosemide [Lasix] 20 mg PO DAILY 08/22/18 08/22/18 Magnesium Oxide 400 mg PO BID 08/22/18 08/22/18 Metoprolol Tartrate [Lopressor] 25 mg PO BID 08/22/18 08/22/18 Vit C/E/Zn/Coppr/Lutein/Zeaxan 1 cap PO BID 08/22/18 08/22/18 [Preservision Areds 2 Softgel] Previous Rx's Medication Instructions Recorded Losartan [Cozaar] 100 mg PO DAILY #30 tab 07/24/17 Allergies Allergy/AdvReac Type Severity Reaction Status Date / Time fluticasone propionate Allergy Unknown Verified 08/22/18 17:43 [From Flovent Diskus] methocarbamol [From Robaxin] Allergy Unknown Verified 08/22/18 17:43 Milk Containing Products Allergy Abdominal Verified 08/22/18 17:43 Pain Penicillins Allergy Unknown Verified 08/22/18 17:43 Review of Systems ROS Statement: Those systems with pertinent positive or pertinent negative responses have been documented in the HPI. ROS Other: All systems not noted in ROS Statement are negative. Past Medical History Past Medical History: Asthma, Cancer, Diabetes Mellitus, Hyperlipidemia, Hypertension Additional Past Medical History / Comment(s): cervical CA, glaucoma (both eyes). pt has hypertrophic cardiomyopathy History of Any Multi-Drug Resistant Organisms: None Reported Past Surgical History: Coronary Bypass/CABG, Heart Catheterization, Hysterectomy Past Anesthesia/Blood Transfusion Reactions: No Reported Reaction Past Psychological History: No Psychological Hx Reported Smoking Status: Never smoker Past Alcohol Use History: None Reported Past Drug Use History: None Reported - Past Family History Father Family Medical History: Myocardial Infarction (OR) Mother Family Medical History: AFIB, Cancer Additional Family Medical History / Comment(s): unknown type of CA General Exam - General Exam Comments Initial Comments: General: The patient is awake and alert, in no distress Eye: +3 mm pupils are equal, round and reactive to light, extra-ocular movements are intact. No nystagmus. There is normal conjunctiva bilaterally. No signs of icterus. Ears, nose, mouth and throat: There are moist mucous membranes and no oral lesions. Neck: The neck is supple, there is no tenderness or JVD. Cardiovascular: There is a regular rate and rhythm. No murmur, rub or gallop is appreciated. Respiratory: Lungs are clear to auscultation, respirations are non-labored, breath sounds are equal. No wheezes, stridor, rales, or rhonchi. Gastrointestinal: Soft, non-distended, non-tender abdomen without masses or organomegaly noted. There is no rebound or guarding present. No CVA tenderness. Bowel sounds are unremarkable. Musculoskeletal: Normal ROM, no tenderness. Strength 5/5. Sensation intact. DP pulses equal bilaterally 2+. Neurological: A&O x 3. CN II-XII intact, There are no obvious motor or sensory deficits. Coordination appears grossly intact. Speech is normal. Skin: Skin is warm and dry and no rashes or lesions are noted. B/l mild edema of the LE pretibial area b/l. Psychiatric: Cooperative, appropriate mood & affect, normal judgment. Limitations: no limitations Course Vital Signs 08/22/18 08/22/18 08/22/18 15:40 17:48 18:30 Temperature 98 F Pulse Rate 66 57 L 57 L Respiratory 20 16 18 Rate Blood Pressure 166/66 164/76 152/68 O2 Sat by Pulse 99 95 95 Oximetry 08/22/18 19:20 Temperature Pulse Rate 57 L Respiratory 18 Rate Blood Pressure 164/75 O2 Sat by Pulse 96 Oximetry Medical Decision Making - Medical Decision Making 52-year-old female history of CHF presenting for weight gain, dspnea on exertion, leg swelling. Patient's symptoms are concerning for acute exacerbat ion of CHF. EKG revealed no acute abnormalities in comparison with that obtained 3.60 is 18. Patient states symptoms are identical to last exacerbation/diagnosis. BNP elevated from 06/2017 when pt had onset of disease. CXR revealed clearing of pleural effusions previously noted. At this time given patient's symptoms, physical examination findings the patient has acute exacerbation of heart failure. I spoke with oncall HEALTH SAFETY SPECIALIST for Dr. Palumbo who accepted admission for gentle diuresis and cardiology evaluation. He is agreeable to admission. I discussed findings and laboratory studies. Initial troponin negative, she denied any chest pain or findings consistent with an acute coronary syndrome. Case was discussed in detail and chart/EKG reviewed by attending provider Dr. Pearson - Lab Data Result diagrams: 08/22/18 17:43 08/22/18 17:43 Lab Results 08/22/18 08/22/18 08/22/18 Range/Units 17:43 17:43 17:43 WBC 8.3 (3.8-10.6) k/uL RBC 3.88 (3.80-5.40) m/uL Hgb 10.7 L (11.4-16.0) gm/dL Hct 32.1 L (34.0-46.0) % MCV 82.6 (80.0-100.0) fL MCH 27.5 (25.0-35.0) pg MCHC 33.3 (31.0-37.0) g/dL RDW 15.4 (11.5-15.5) % Plt Count 234 (150-450) k/uL Neutrophils % 53 % Lymphocytes % 36 % Monocytes % 6 % Eosinophils % 3 % Basophils % 0 % Neutrophils # 4.4 (1.3-7.7) k/uL Lymphocytes # 3.0 (1.0-4.8) k/uL Monocytes # 0.5 (0-1.0) k/uL Eosinophils # 0.2 (0-0.7) k/uL Basophils # 0.0 (0-0.2) k/uL PT (9.0-12.0) sec INR (<1.2) APTT (22.0-30.0) sec Sodium 141 (137-145) mmol/L Potassium 4.6 (3.5-5.1) mmol/L Chloride 103 (98-107) mmol/L Carbon Dioxide 25 (22-30) mmol/L Anion Gap 13 mmol/L BUN 23 H (7-17) mg/dL Creatinine 0.87 (0.52-1.04) mg/dL Est GFR (CKD-EPI)AfAm 88 (>60 ml/min/1.73 sqM) Est GFR (CKD-EPI)NonAf 77 (>60 ml/min/1.73 sqM) Glucose 72 L (74-99) mg/dL Calcium 10.3 H (8.4-10.2) mg/dL Total Bilirubin 0.7 (0.2-1.3) mg/dL AST 23 (14-36) U/L ALT 22 (9-52) U/L Alkaline Phosphatase 67 (38-126) U/L Troponin I (0.000-0.034) ng/mL NT-Pro-B Natriuret Pep 1770 pg/mL Total Protein 8.4 H (6.3-8.2) g/dL Albumin 4.9 (3.5-5.0) g/dL 08/22/18 08/22/18 Range/Units 17:43 17:43 WBC (3.8-10.6) k/uL RBC (3.80-5.40) m/uL Hgb (11.4-16.0) gm/dL Hct (34.0-46.0) % MCV (80.0-100.0) fL MCH (25.0-35.0) pg MCHC (31.0-37.0) g/dL RDW (11.5-15.5) % Plt Count (150-450) k/uL Neutrophils % % Lymphocytes % % Monocytes % % Eosinophils % % Basophils % % Neutrophils # (1.3-7.7) k/uL Lymphocytes # (1.0-4.8) k/uL Monocytes # (0-1.0) k/uL Eosinophils # (0-0.7) k/uL Basophils # (0-0.2) k/uL PT 10.0 (9.0-12.0) sec INR 0.9 (<1.2) APTT 24.8 (22.0-30.0) sec Sodium (137-145) mmol/L Potassium (3.5-5.1) mmol/L Chloride (98-107) mmol/L Carbon Dioxide (22-30) mmol/L Anion Gap mmol/L BUN (7-17) mg/dL Creatinine (0.52-1.04) mg/dL Est GFR (CKD-EPI)AfAm (>60 ml/min/1.73 sqM) Est GFR (CKD-EPI)NonAf (>60 ml/min/1.73 sqM) Glucose (74-99) mg/dL Calcium (8.4-10.2) mg/dL Total Bilirubin (0.2-1.3) mg/dL AST (14-36) U/L ALT (9-52) U/L Alkaline Phosphatase (38-126) U/L Troponin I <0.012 (0.000-0.034) ng/mL NT-Pro-B Natriuret Pep pg/mL Total Protein (6.3-8.2) g/dL Albumin (3.5-5.0) g/dL - EKG Data EKG Comments: Ventricular rate 62 bpm, AL interval 306 ms, QRS duration 164 ms, QT/QTC 468/475ms. On his rhythm with first-degree AV block. Left axis noted. Left bundle branch block redemonstrated from that of 07/22/17. Disposition Clinical Impression: Acute exacerbation of CHF (congestive heart failure), SOB (shortness of breath), Weight gain, Leg swelling Disposition: HOME SELF-CARE Condition: Good Is patient prescribed a controlled substance at d/c from ED?: No Referrals: Jaylen Art MD [Primary Care Provider] - 1-2 days Time of Disposition: 19:10 Decision to Admit Reason: Admit from EC Decision Date: 08/22/18 Decision Time: 19:11
[2018-08-22] MEDS ORDERED: NALOXONE 0.4 MG/ML 1 ML VIAL IV PRN (19:11)
[2018-08-22] MEDS ORDERED: FUROSEMIDE 10 MG/ML 4 ML VIAL IV STA (19:13)
[2018-08-22 21:15] LABS: Glucose,Whole Blood 80 mg/dL (75-99)
[2018-08-22] MEDS: ATORVASTATIN 20 MG TAB PO SCH (22:13)
[2018-08-22] MEDS: METOPROLOL TARTRATE 25 MG TAB PO SCH (22:13)
[2018-08-22] MEDS: LORATADINE 10 MG TAB PO SCH (22:13)
[2018-08-23] MEDS: PANTOPRAZOLE 40 MG TABLET PO SCH (06:04)
[2018-08-23 06:06] LABS: Glucose,Whole Blood 126 mg/dL (75-99)
[2018-08-23] MEDS: INSULIN ASPART (NovoLOG) 100 UNIT/ML VIAL SQ SCH ×4 (06:07→21:02)
--- NOTE | 2018-08-23 08:14 | P.CRDCN ---
History of Present Illness Consult date: 08/23/18 Requesting physician: Aelxandra Palumbo Consult reason: congestive heart failure Chief complaint: Shortness of breath History of present illness: This is a pleasant 52-year-old female with history of hypertrophic obstructive cardiomyopathy status post resection of septum at [facility] in 15 11 who follows regularly with Dr. Hodge in the office. She also has history of hypertension, diabetes, hyperlipidemia, and COPD. She presents to the hospital on this occasion with symptoms of one week duration of progressively worsening shortness of breath and lower extremity edema. According to the patient shortness of breath occurs mostly with activity, she denies any PND or orthopnea. Blood pressure on arrival here 166/66 with a heart rate in the 60s, 99% on room air. His morning's blood pressure 138/70, she is afebrile. White blood cell count 8.3, hemoglobin 10.7, platelet count 234. Sodium 141, potassium 4.6, BUN 23 and creatinine 0.7. Troponins negative 3. BNP level 1770. Patient was initiated on IV Lasix in the emergency room, her weight is down 2 kg from admission. At the time of my examination this morning, she does overall feels better, no shortness of breath at present. Past Medical History Past Medical History: Asthma, Cancer, Diabetes Mellitus, Hyperlipidemia, Hypertension Additional Past Medical History / Comment(s): cervical CA, glaucoma (both eyes). pt has hypertrophic cardiomyopathy History of Any Multi-Drug Resistant Organisms: None Reported Past Surgical History: Coronary Bypass/CABG, Heart Catheterization, Hysterectomy Past Anesthesia/Blood Transfusion Reactions: No Reported Reaction Past Psychological History: No Psychological Hx Reported Smoking Status: Never smoker Past Alcohol Use History: None Reported Past Drug Use History: None Reported - Past Family History Father Family Medical History: Myocardial Infarction ([place]) Mother Family Medical History: AFIB, Cancer Additional Family Medical History / Comment(s): unknown type of CA Medications and Allergies Home Medications Medication Instructions Recorded Confirmed Type Cetirizine HCl [Zyrtec] 10 mg PO HS 01/23/14 08/22/18 History Dorzolamide HCl/Timolol Maleat 1 drop BOTH EYES BID 01/23/14 08/22/18 History [Cosopt Eye Drops] Omeprazole [PriLOSEC] 20 mg PO DAILY 01/23/14 08/22/18 History Salmeterol Xinafoate [Serevent 1 puff INHALATION RT-BID PRN 01/23/14 08/22/18 Hi story Diskus] glyBURIDE/METFORMIN HCL 2 tab PO BID 01/23/14 08/22/18 History [Glucovance 5-500 mg Tablet] Ergocalciferol [Vitamin D2 50,000 unit PO FR 07/22/17 08/22/18 History (DRISDOL)] Rosuvastatin Calcium [Crestor] 10 mg PO Q48H 07/22/17 08/22/18 History amLODIPine [Norvasc] 5 mg PO DAILY 07/22/17 08/22/18 History Losartan [Cozaar] 100 mg PO DAILY #30 tab 07/24/17 08/22/18 Rx Furosemide [Lasix] 20 mg PO DAILY 08/22/18 08/22/18 History Magnesium Oxide 400 mg PO BID 08/22/18 08/22/18 History Metoprolol Tartrate [Lopressor] 25 mg PO BID 08/22/18 08/22/18 History Vit C/E/Zn/Coppr/Lutein/Zeaxan 1 cap PO BID 08/22/18 08/22/18 History [Preservision Areds 2 Softgel] Allergies Allergy/AdvReac Type Severity Reaction Status Date / Time fluticasone propionate Allergy Unknown Verified 08/22/18 17:43 [From Flovent Diskus] methocarbamol [From Robaxin] Allergy Unknown Verified 08/22/18 17:43 Milk Containing Products Allergy Abdominal Verified 08/22/18 17:43 Pain Penicillins Allergy Unknown Verified 08/22/18 17:43 Physical Exam Vitals: Vital Signs Temp Pulse Pulse Resp BP BP Pulse Ox 08/23/18 05:01 138/77 08/23/18 04:00 98.3 F 58 L 16 164/70 95 08/23/18 00:00 98.1 F 62 18 175/74 94 L 08/22/18 20:45 98.4 F 60 18 188/77 95 08/22/18 20:39 98.2 F 60 18 162/76 100 08/22/18 19:20 57 L 18 164/75 96 08/22/18 18:30 57 L 18 152/68 95 08/22/18 17:48 57 L 16 164/76 95 08/22/18 15:40 98 F 66 20 166/66 99 Intake and Output 08/22/18 08/23/18 08/23/18 22:59 06:59 14:59 Intake Total 237 120 Balance 237 120 Intake: Oral 237 120 Other: # Voids 1 2 Weight 78.018 kg 76.2 kg PHYSICAL EXAMINATION: GENERAL: 52-year-old female in no acute distress at the time of my examination HEENT: Head is atraumatic, normocephalic. Pupils equal, round. Sclera anicteric. Conjunctiva are clear. Mucous membranes of the mouth are moist. Neck is supple. There is no elevated jugular venous pressure. No carotid bruit is heard. HEART EXAMINATION: Heart S1, S2 systolic ejection murmur heard . CHEST EXAMINATION: Lungs are clear to auscultation and precussion. No chest wall tenderness is noted on palpation or with deep breathing. ABDOMEN: Soft, nontender. Bowel sounds are heard. No organomegaly noted. EXTREMITIES: 2+ peripheral pulses with no evidence of peripheral edema and no calf tenderness noted. NEUROLOGIC patient is awake, alert and oriented 3 . . Results 08/22/18 17:43 08/22/18 17:43 Cardiac Enzymes 08/22/18 08/22/18 08/22/18 Range/Units 17:43 17:43 17:43 WBC 8.3 (3.8-10.6) k/uL RBC 3.88 (3.80-5.40) m/uL Hgb 10.7 L (11.4-16.0) gm/dL Hct 32.1 L (34.0-46.0) % MCV 82.6 (80.0-100.0) fL MCH 27.5 (25.0-35.0) pg MCHC 33.3 (31.0-37.0) g/dL RDW 15.4 (11.5-15.5) % Plt Count 234 (150-450) k/uL Neutrophils % 53 % Lymphocytes % 36 % Monocytes % 6 % Eosinophils % 3 % Basophils % 0 % Neutrophils # 4.4 (1.3-7.7) k/uL Lymphocytes # 3.0 (1.0-4.8) k/uL Monocytes # 0.5 (0-1.0) k/uL Eosinophils # 0.2 (0-0.7) k/uL Basophils # 0.0 (0-0.2) k/uL PT (9.0-12.0) sec INR (<1.2) APTT (22.0-30.0) sec Sodium 141 (137-145) mmol/L Potassium 4.6 (3.5-5.1) mmol/L Chloride 103 (98-107) mmol/L Carbon Dioxide 25 (22-30) mmol/L Anion Gap 13 mmol/L BUN 23 H (7-17) mg/dL Creatinine 0.87 (0.52-1.04) mg/dL Est GFR (CKD-EPI)AfAm 88 (>60 ml/min/1.73 sqM) Est GFR (CKD-EPI)NonAf 77 (>60 ml/min/1.73 sqM) Glucose 72 L (74-99) mg/dL POC Glucose (mg/dL) (75-99) mg/dL POC Glu [employer] ID Calcium 10.3 H (8.4-10.2) mg/dL Total Bilirubin 0.7 (0.2-1.3) mg/dL AST 23 (14-36) U/L ALT 22 (9-52) U/L Alkaline Phosphatase 67 (38-126) U/L Troponin I (0.000-0.034) ng/mL NT-Pro-B Natriuret Pep 1770 pg/mL Total Protein 8.4 H (6.3-8.2) g/dL Albumin 4.9 (3.5-5.0) g/dL 08/22/18 08/22/18 08/22/18 Range/Units 17:43 17:43 21:13 WBC (3.8-10.6) k/uL RBC (3.80-5.40) m/uL Hgb (11.4-16.0) gm/dL Hct (34.0-46.0) % MCV (80.0-100.0) fL MCH (25.0-35.0) pg MCHC (31.0-37.0) g/dL RDW (11.5-15.5) % Plt Count (150-450) k/uL Neutrophils % % Lymphocytes % % Monocytes % % Eosinophils % % Basophils % % Neutrophils # (1.3-7.7) k/uL Lymphocytes # (1.0-4.8) k/uL Monocytes # (0-1.0) k/uL Eosinophils # (0-0.7) k/uL Basophils # (0-0.2) k/uL PT 10.0 (9.0-12.0) sec INR 0.9 (<1.2) APTT 24.8 (22.0-30.0) sec Sodium (137-145) mmol/L Potassium (3.5-5.1) mmol/L Chloride (98-107) mmol/L Carbon Dioxide (22-30) mmol/L Anion Gap mmol/L BUN (7-17) mg/dL Creatinine (0.52-1.04) mg/dL Est GFR (CKD-EPI)AfAm (>60 ml/min/1.73 sqM) Est GFR (CKD-EPI)NonAf (>60 ml/min/1.73 sqM) Glucose (74-99) mg/dL POC Glucose (mg/dL) 80 (75-99) mg/dL POC Glu [employer] ID Sia Vasques Calcium (8.4-10.2) mg/dL Total Bilirubin (0.2-1.3) mg/dL AST (14-36) U/L ALT (9-52) U/L Alkaline Phosphatase (38-126) U/L Troponin I <0.012 (0.000-0.034) ng/mL NT-Pro-B Natriuret Pep pg/mL Total Protein (6.3-8.2) g/dL Albumin (3.5-5.0) g/dL 08/22/18 08/23/18 08/23/18 Range/Units 23:19 05:36 06:06 WBC (3.8-10.6) k/uL RBC (3.80-5.40) m/uL Hgb (11.4-16.0) gm/dL Hct (34.0-46.0) % MCV (80.0-100.0) fL MCH (25.0-35.0) pg MCHC (31.0-37.0) g/dL RDW (11.5-15.5) % Plt Count (150-450) k/uL Neutrophils % % Lymphocytes % % Monocytes % % Eosinophils % % Basophils % % Neutrophils # (1.3-7.7) k/uL Lymphocytes # (1.0-4.8) k/uL Monocytes # (0-1.0) k/uL Eosinophils # (0-0.7) k/uL Basophils # (0-0.2) k/uL PT (9.0-12.0) sec INR (<1.2) APTT (22.0-30.0) sec Sodium (137-145) mmol/L Potassium (3.5-5.1) mmol/L Chloride (98-107) mmol/L Carbon Dioxide (22-30) mmol/L Anion Gap mmol/L BUN (7-17) mg/dL Creatinine (0.52-1.04) mg/dL Est GFR (CKD-EPI)AfAm (>60 ml/min/1.73 sqM) Est GFR (CKD-EPI)NonAf (>60 ml/min/1.73 sqM) Glucose (74-99) mg/dL POC Glucose (mg/dL) 126 H (75-99) mg/dL POC Glu [employer] ID Sia Vasques Calcium (8.4-10.2) mg/dL Total Bilirubin (0.2-1.3) mg/dL AST (14-36) U/L ALT (9-52) U/L Alkaline Phosphatase (38-126) U/L Troponin I <0.012 <0.012 (0.000-0.034) ng/mL NT-Pro-B Natriuret Pep pg/mL Total Protein (6.3-8.2) g/dL Albumin (3.5-5.0) g/dL Coagulation 08/22/18 Range/Units 17:43 PT 10.0 (9.0-12.0) sec APTT 24.8 (22.0-30.0) sec CBC 08/22/18 Range/Units 17:43 WBC 8.3 (3.8-10.6) k/uL RBC 3.88 (3.80-5.40) m/uL Hgb 10.7 L (11.4-16.0) gm/dL Hct 32.1 L (34.0-46.0) % Plt Count 234 (150-450) k/uL Comprehensive Metabolic Panel 08/22/18 Range/Units 17:43 Sodium 141 (137-145) mmol/L Potassium 4.6 (3.5-5.1) mmol/L Chloride 103 (98-107) mmol/L Carbon Dioxide 25 (22-30) mmol/L BUN 23 H (7-17) mg/dL Creatinine 0.87 (0.52-1.04) mg/dL Glucose 72 L (74-99) mg/dL Calcium 10.3 H (8.4-10.2) mg/dL AST 23 (14-36) U/L ALT 22 (9-52) U/L Alkaline Phosphatase 67 (38-126) U/L Total Protein 8.4 H (6.3-8.2) g/dL Albumin 4.9 (3.5-5.0) g/dL Current Medications Generic Name Dose Route Start Last Admin Trade Name Freq PRN Reason Stop Dose Admin Amlodipine Besylate 5 mg 08/23/18 09:00 Norvasc PO DAILY [facility] Atorvastatin Calcium 20 mg 08/22/18 21:00 08/22/18 22:13 Lipitor PO 20 mg Q48H ARIEL Administration Furosemide 40 mg 08/23/18 09:00 Lasix IV Q12HR [facility] Heparin Sodium (Porcine) 5,000 unit 08/23/18 09:00 Heparin SQ Q12HR [facility] Insulin Aspart 0 unit 08/23/18 07:30 08/23/18 06:07 Novolog SQ Not Given ACHS [facility] Protocol Loratadine 10 mg 08/22/18 21:47 08/22/18 22:13 Claritin PO 10 mg HS ARIEL Administration Losartan Potassium 100 mg 08/23/18 09:00 Cozaar PO DAILY [facility] Metoprolol Tartrate 25 mg 08/22/18 22:00 08/22/18 22:13 Lopressor PO 25 mg BID ARIEL Administration Naloxone HCl 0.2 mg 08/22/18 19:11 Narcan IV Q2M PRN Opioid Reversal Pantoprazole Sodium 40 mg 08/23/18 07:30 08/23/18 06:04 Protonix PO 40 mg DAILY@0730 ARIEL Administration Intake and Output 08/22/18 08/23/18 08/23/18 22:59 06:59 14:59 Intake Total 237 120 Balance 237 120 Intake: Oral 237 120 Other: # Voids 1 2 Weight 78.018 kg 76.2 kg 08/22/18 17:43 08/22/18 17:43 EKG Interpretations (text) EKG shows normal sinus rhythm with first-degree AV block and left bundle-branch block pattern Assessment and Plan Plan: Assessment and plan #1 systolic congestive heart failure acute on chronic most recent echo was performed in 2018 which revealed an ejection fraction of 40-45%. There is paradoxical dyssynergy Septal motion consistent with postoperative status #2 hypertrophic obstructive cardiomyopathy status post resection of the septum in 2006 #3 diabetes #4 hypertension #5 hyperlipidemia #6 COPD Plan We will obtain an echocardiogram with Doppler study. Continue current dose of IV Lasix for today. Blood pressure this morning is stable. Further recommend ations to follow. DNP note has been reviewed, I agree with a documented findings and plan of care. Patient was seen and examined.
--- NOTE | 2018-08-23 08:25 | P.HPIM ---
History of Present Illness This is a pleasant 52 years old female with past medical history of diabetes mellitus, hypertension, hyperlipidemia, asthma, cervical cancer and hypertrophic cardiomyopathy, history of coronary artery disease status post CABG which was diagnosed about 1 year ago that she has heart failure. She is a patient of Dr. Tod manzo with Dr. brunner in the outpatient setting. Presents with progressive dyspnea over one week not associated with orthopnea, no paroxysmal nocturnal dyspnea. She denies chest pain. No palpitation. No dizziness. No change in urine or bowel habits. No fever and patient also denies coughing Anesthetic patient she was sitting comfortable, not in respiratory distress and on exam and there is no wheezing or basal crepitation. There is no leg edema Blood pressure was on the high side, currently is better controlled. Rest vital signs stable. CBC and BMP were unremarkable. Serial troponins are negative. Chest x-ray showing cardiomegaly with mild heart failure. EKG showing normal sinus rhythm at 62 with left bundle branch block Review of Systems CONSTITUTIONAL: No fever, no malaise, no fatigue. HEENT: No recent visual problems or hearing problems. Denied any sore throat. CARDIOVASCULAR: No orthopnea, PND, no palpitations, no syncope. PULMONARY: No shortness of breath, no cough, no hemoptysis. GASTROINTESTINAL: No diarrhea, no nausea, no vomiting, no abdominal pain. Normoactive bowel sounds. NEUROLOGICAL: No headaches, no weakness, no numbness. HEMATOLOGICAL: Denies any bleeding or petechiae. GENITOURINARY: Denies any burning micturition, frequency, or urgency. MUSCULOSKELETAL/RHEUMATOLOGICAL: Denies any joint pain, swelling, or any muscle pain. ENDOCRINE: Denies any polyuria or polydipsia. Past Medical History Past Medical History: Asthma, Cancer, Diabetes Mellitus, Hyperlipidemia, Hypertension Additional Past Medical History / Comment(s): cervical CA, glaucoma (both eyes). pt has hypertrophic cardiomyopathy History of Any Multi-Drug Resistant Organisms: None Reported Past Surgical History: Coronary Bypass/CABG, Heart Catheterization, Hysterectomy Past Anesthesia/Blood Transfusion Reactions: No Reported Reaction Past Psychological History: No Psychological Hx Reported Smoking Status: Never smoker Past Alcohol Use History: None Reported Past Drug Use History: None Reported - Past Family History Father Family Medical History: Myocardial Infarction ([place]) Mother Family Medical History: AFIB, Cancer Additional Family Medical History / Comment(s): unknown type of CA Medications and Allergies Home Medications Medication Instructions Recorded Confirmed Type Cetirizine HCl [Zyrtec] 10 mg PO HS 01/23/14 08/22/18 History Dorzolamide HCl/Timolol Maleat 1 drop BOTH EYES BID 01/23/14 08/22/18 History [Cosopt Eye Drops] Omeprazole [PriLOSEC] 20 mg PO DAILY 01/23/14 08/22/18 History Salmeterol Xinafoate [Serevent 1 puff INHALATION RT-BID PRN 01/23/14 08/22/18 History Diskus] glyBURIDE/METFORMIN HCL 2 tab PO BID 01/23/14 08/22/18 History [Glucovance 5-500 mg Tablet] Ergocalciferol [Vitamin D2 50,000 unit PO FR 07/22/17 08/22/18 History (DRISDOL)] Rosuvastatin Calcium [Crestor] 10 mg PO Q48H 07/22/17 08/22/18 History amLODIPine [Norvasc] 5 mg PO DAILY 07/22/17 08/22/18 History Losartan [Cozaar] 100 mg PO DAILY #30 tab 07/24/17 08/22/18 Rx Furosemide [Lasix] 20 mg PO DAILY 08/22/18 08/22/18 History Magnesium Oxide 400 mg PO BID 08/22/18 08/22/18 History Metoprolol Tartrate [Lopressor] 25 mg PO BID 08/22/18 08/22/18 History Vit C/E/Zn/Coppr/Lutein/Zeaxan 1 cap PO BID 08/22/18 08/22/18 History [Preservision Areds 2 Softgel] Allergies Allergy/AdvReac Type Severity Reaction Status Date / Time fluticasone propionate Allergy Unknown Verified 08/22/18 17:43 [From Flovent Diskus] methocarbamol [From Robaxin] Allergy Unknown Verified 08/22/18 17:43 Milk Containing Products Allergy Abdominal Verified 08/22/18 17:43 Pain Penicillins Allergy Unknown Verified 08/22/18 17:43 Physical Exam Vitals: Vital Signs Temp Pulse Pulse Resp BP BP Pulse Ox 08/23/18 05:01 138/77 08/23/18 04:00 98.3 F 58 L 16 164/70 95 08/23/18 00:00 98.1 F 62 18 175/74 94 L 08/22/18 20:45 98.4 F 60 18 188/77 95 08/22/18 20:39 98.2 F 60 18 162/76 100 08/22/18 19:20 57 L 18 164/75 96 08/22/18 18:30 57 L 18 152/68 95 08/22/18 17:48 57 L 16 164/76 95 08/22/18 15:40 98 F 66 20 166/66 99 Intake and Output 08/22/18 08/23/18 08/23/18 22:59 06:59 14:59 Intake Total 237 120 Balance 237 120 Intake: Oral 237 120 Other: # Voids 1 2 Weight 78.018 kg 76.2 kg GENERAL: The patient is alert and oriented x3, not in any acute distress. Well developed, well nourished. HEENT: Pupils are round and equally reacting to light. EOMI. No scleral icterus. No conjunctival pallor. Normocephalic, atraumatic. No pharyngeal erythema. No thyromegaly. CARDIOVASCULAR: S1 and S2 present. No murmurs, rubs, or gallops. PULMONARY: Chest is clear to auscultation, no wheezing or crackles. ABDOMEN: Soft, nontender, nondistended, normoactive bowel sounds. No palpable organomegaly. MUSCULOSKELETAL: No joint swelling or deformity. EXTREMITIES: No cyanosis, clubbing, or pedal edema. NEUROLOGICAL: Gross neurological examination did not reveal any focal deficits. SKIN: No rashes. Results CBC & Chem 7: 08/22/18 17:43 08/22/18 17:43 Labs: Abnormal Lab Results - Last 24 Hours (Table) 08/22/18 08/22/18 08/23/18 Range/Units 17:43 17:43 06:06 Hgb 10.7 L (11.4-16.0) gm/dL Hct 32.1 L (34.0-46.0) % BUN 23 H (7-17) mg/dL Glucose 72 L (74-99) mg/dL POC Glucose (mg/dL) 126 H (75-99) mg/dL Calcium 10.3 H (8.4-10.2) mg/dL Total Protein 8.4 H (6.3-8.2) g/dL Thrombosis Risk Factor Assmnt - Choose All That Apply Each Factor Represents 1 point: Heart failure (<1month), Obesity (BMI >25), Swollen legs (current) Other Risk Factors: No Thrombosis Risk Factor Assessment Total Risk Factor Score: 3 Thrombosis Risk Factor Assessment Level: Moderate Risk Assessment and Plan Assessment: Acute and chronic systolic congestive heart failure History of coronary artery disease status post CABG History of hypertrophic cardiomyopathy Diabetes mellitus Hypertension Hyperlipidemia History of asthma History of cervical cancer Plan: This is a pleasant 52 years old female who presents with acute CHF. Continue with diuretic. Cardiology consultation is appreciated. Monitor kidney function and electrolytes.Labs and medication were reviewed.. Continue same treatment. Continue with symptomatic treatment. Resume home medication. Monitor lytes and vitals. DVT and GI prophylaxis. Further recommendations of the clinical course of the patient DVT prophylaxis: Subcutaneous heparin GI Prophylaxis: Pepcid PT/OT: Pending Prognosis is guarded
[2018-08-23] MEDS: FAMOTIDINE 20 MG/2 ML VIAL IV SCH ×2 (08:28→20:57)
[2018-08-23] MEDS: HEPARIN SODIUM,PORCINE 5,000 UNIT/ML 1 ML VIAL SQ SCH ×2 (08:28→21:00)
[2018-08-23] MEDS: FUROSEMIDE 10 MG/ML 4 ML VIAL IV SCH ×2 (08:28→20:57)
[2018-08-23] MEDS: METOPROLOL TARTRATE 25 MG TAB PO SCH (08:29)
[2018-08-23] MEDS: LOSARTAN 50 MG TAB PO SCH (08:29)
[2018-08-23] MEDS: amLODIPine 5 MG TAB PO SCH (08:29)
[2018-08-23] MEDS ORDERED: METOPROLOL TARTRATE 25 MG TAB PO SCH (09:00)
[2018-08-23] MEDS ORDERED: Magnesium Replacement Protocol 1 EACH MISC MISCELLANE PRN (09:39)
[2018-08-23] MEDS: MAGNESIUM SULFATE-D5W PMX 1 GM in DEXTROSE/WATER 1 100ML.BAG IVPB SCH ×2 (10:23→11:27)
[2018-08-23 12:07] LABS: Glucose,Whole Blood 264 mg/dL (75-99)
--- NOTE | 2018-08-23 13:35 | ECHOF ---
Referral Reason:chf MEASUREMENTS -------- HEIGHT: 152.4 cm WEIGHT: 75.8 kg BP: 167/72 RVIDd: 3.4 cm (< 3.3) IVSd: 1.3 cm (0.6 - 1.1) LVIDd: 5.5 cm (3.9 - 5.3) LVPWd: 1.3 cm (0.6 - 1.1) IVSs: 1.6 cm LVIDs: 4.3 cm LVPWs: 1.8 cm LA Diam: 4.0 cm (2.7 - 3.8) LAESV Index (A-L): 51.00 ml/m Ao Diam: 2.9 cm (2.0 - 3.7) AV Cusp: 2.1 cm (1.5 - 2.6) MV EXCURSION: 12.495 mm (> 18.000) MV EF SLOPE: 51 mm/s (70 - 150) EPSS: 1.1 cm MV E Fritz: 1.68 m/s MV DecT: 415 ms MV A Fritz: 1.46 m/s MV E/A Ratio: 1.15 AV maxP.71 mmHg AV meanP.80 mmHg AR PHT: 493 ms RAP: 15.00 mmHg RVSP: 68.13 mmHg FINDINGS -------- Sinus rhythm. This was a technically adequate study. The left ventricle is mildly dilated. There is mild concentric left ventricular hypertrophy. Over all left ventricular systolic function is mildly impaired with, an EF between 45 - 50 %. The right ventricle is mildly enlarged. LA is severely dilated >40 ml/m2 The right atrium is normal in size. There is mild aortic valve sclerosis. There is moderate aortic regurgitation. There is mild aorti c stenosis present. Peak/mean gradient across the Aortic Valve is 16.71mmHg / 6.80mmHg. The mitral valve is normal. Moderate mitral regurgitation is present. The peak and mean MV gradi ents are 33.64mmHg 7.53mmHg as measured by doppler. [id number] tricuspid regurgitation present. There is severe pulmonary hypertension. The rig ht ventricular systolic pressure, as measured by Doppler, is 68.13mmHg. Trace/mild (physiologic) pulmonic regurgitation. The aortic root size is normal. Normal inferior vena cava with less than 50% inspiratory collapse consistent with estimated right atr ial pressure of 15 mmHg. There is no pericardial effusion. CONCLUSIONS -------- 1. Sinus rhythm. 2. This was a technically adequate study. 3. The left ventricle is mildly dilated. 4. There is mild concentric left ventricular hypertrophy. 5. Overall left ventricular systolic function is mildly impaired with, an EF between 45 - 50 %. 6. The right ventricle is mildly enlarged. 7. LA is severely dilated >40 ml/m2 8. There is mild aortic valve sclerosis. 9. There is moderate aortic regurgitation. 10. There is mild aortic stenosis present. 11. Peak/mean gradient across the Aortic Valve is 16.71mmHg / 6.80mmHg. 12. The mitral valve is normal. 13. Moderate mitral regurgitation is present. 14. The peak and mean MV gradients are 33.64mmHg 7.53mmHg as measured by doppler. 15. [id number] tricuspid regurgitation present. 16. There is severe pulmonary hypertension. 17. The right ventricular systolic pressure, as measured by Doppler, is 68.13mmHg. 18. Trace/mild (physiologic) pulmonic regurgitation. 19. The aortic root size is normal. 20. Normal inferior vena cava with less than 50% inspiratory collapse consistent with estimated right atrial pressure of 15 mmHg. 21. There is no pericardial effusion. FIRE MANAGER: Becka Young RDCS
[2018-08-23 14:40] VITALS: BMI 32.8
[2018-08-23 16:47] LABS: Glucose,Whole Blood 114 mg/dL (75-99)
[2018-08-23 20:53] LABS: Glucose,Whole Blood 149 mg/dL (75-99)
[2018-08-23] MEDS: LORATADINE 10 MG TAB PO SCH (20:57)
[2018-08-23] MEDS ORDERED: LORATADINE 10 MG TAB PO SCH (21:00)
[2018-08-24] MEDS: METOPROLOL TARTRATE 25 MG TAB PO SCH ×3 (03:35→21:00)
[2018-08-24 06:24] LABS: Glucose,Whole Blood 173 mg/dL (75-99)
[2018-08-24] MEDS: INSULIN ASPART (NovoLOG) 100 UNIT/ML VIAL SQ SCH ×4 (06:32→21:16)
[2018-08-24] MEDS: PANTOPRAZOLE 40 MG TABLET PO SCH (06:33)
[2018-08-24 07:10] LABS: Magnesium 1.8 mg/dL (1.6-2.3); Potassium 4.3 mmol/L (3.5-5.1)
[2018-08-24] MEDS: FUROSEMIDE 10 MG/ML 4 ML VIAL IV SCH (07:54)
[2018-08-24] MEDS: LOSARTAN 50 MG TAB PO SCH (07:54)
[2018-08-24] MEDS: HEPARIN SODIUM,PORCINE 5,000 UNIT/ML 1 ML VIAL SQ SCH ×2 (07:54→21:17)
[2018-08-24] MEDS: amLODIPine 5 MG TAB PO SCH (07:54)
[2018-08-24] MEDS: FAMOTIDINE 20 MG/2 ML VIAL IV SCH ×2 (07:54→21:16)
[2018-08-24] MEDS ORDERED: ATORVASTATIN 20 MG TAB PO SCH (09:00)
--- NOTE | 2018-08-24 09:02 | P.PN ---
Subjective This is a pleasant 52 years old female with past medical history of diabetes mellitus, hypertension, hyperlipidemia, asthma, cervical cancer and hypertrophic cardiomyopathy, history of coronary artery disease status post CABG which was diagnosed about 1 year ago that she has heart failure. She is a patient of Dr. Tod manzo with Dr. brunner in the outpatient setting. Presents with progressive dyspnea over one week not associated with orthopnea, no paroxysmal nocturnal dyspnea. She denies chest pain. No palpitation. No dizziness. No change in urine or bowel habits. No fever and patient also denies coughing Anesthetic patient she was sitting comfortable, not in respiratory distress and on exam and there is no wheezing or basal crepitation. There is no leg edema Blood pressure was on the high side, currently is better controlled. Rest vital signs stable. CBC and BMP were unremarkable. Serial troponins are negative. Chest x-ray showing cardiomegaly with mild heart failure. EKG showing normal sinus rhythm at 62 with left bundle branch block 08/24/2018 Patient today feels better, she is limited dyspneic. She has still bilateral basal crepitation. She remains on intravenous Lasix. She is a little bradycardic and blood pressure on the high side. She is afebrile. Creatinine is 1.0. Glucose 140 and 173. Patient has been seen by cardiology team and their input is appreciated. Discharge plan in 24 hours Objective - Vital Signs Vital signs: Vital Signs Temp 97.8 F 08/24/18 07:45 Pulse 60 08/24/18 07:45 Resp 18 08/24/18 07:45 BP 164/109 08/24/18 07:45 Pulse Ox 97 08/24/18 07:45 Intake & Output 08/23/18 08/24/18 08/24/18 18:59 06:59 18:59 Intake Total 0 240 600 Balance 0 240 600 Weight 76.2 kg 75.7 kg Intake: Oral 0 240 600 Other: Voiding Method Toilet Toilet # Voids 2 2 0 # Bowel Movements 0 - Exam GENERAL: The patient is alert and oriented x3, not in any acute distress. Well developed, well nourished. HEENT: Pupils are round and equally reacting to light. EOMI. No scleral icterus. No conjunctival pallor. Normocephalic, atraumatic. No pharyngeal erythema. No thyromegaly. CARDIOVASCULAR: S1 and S2 present. No murmurs, rubs, or gallops. -PULMONARY: Chest is clear to auscultation, no wheezing or crackles. Bilateral basal crepitation ABDOMEN: Soft, nontender, nondistended, normoactive bowel sounds. No palpable organomegaly. MUSCULOSKELETAL: No joint swelling or deformity. EXTREMITIES: No cyanosis, clubbing, or pedal edema. NEUROLOGICAL: Gross neurological examination did not reveal any focal deficits. SKIN: No rashes. - Labs CBC & Chem 7: 08/22/18 17:43 08/24/18 05:57 Labs: Abnormal Lab Results - Last 24 Hours (Table) 08/23/18 08/23/18 08/23/18 Range/Units 05:36 12:05 16:43 BUN (7-17) mg/dL Creatinine (0.52-1.04) mg/dL Glucose (74-99) mg/dL POC Glucose (mg/dL) 264 H 114 H (75-99) mg/dL Magnesium 1.5 L (1.6-2.3) mg/dL 08/23/18 08/24/18 08/24/18 Range/Units 20:51 05:57 06:21 BUN 28 H (7-17) mg/dL Creatinine 1.05 H (0.52-1.04) mg/dL Glucose 140 H (74-99) mg/dL POC Glucose (mg/dL) 149 H 173 H (75-99) mg/dL Magnesium (1.6-2.3) mg/dL Assessment and Plan Assessment: Acute and chronic systolic congestive heart failure History of coronary artery disease status post CABG History of hypertrophic cardiomyopathy Diabetes mellitus Hypertension Hyperlipidemia History of asthma History of cervical cancer Plan: This is a pleasant 52 years old female who presents with acute CHF. Continue with diuretic. Cardiology consultation is appreciated. Monitor kidney function and electrolytes.Labs and medication were reviewed.. Continue same treatment. Continue with symptomatic treatment. Resume home medication. Monitor lytes and vitals. DVT and GI prophylaxis. Further recommendations of the clinical course of the patient DVT prophylaxis: Subcutaneous heparin GI Prophylaxis: Pepcid PT/OT: Pending Prognosis is guarded
--- NOTE | 2018-08-24 10:46 | PN ---
PROGRESS NOTE HISTORY: Ms. Martínez is a 52-year-old female, prior history of hypertrophic cardiomyopathy, status post surgery with septectomy, who presented with symptoms of progressive dyspnea and symptoms of congestive heart failure. She is feeling well this morning, ambulating without difficulty. She denies symptoms of chest pain. She denies any dizziness or palpitations. She denies any nausea. She had an echocardiogram done that revealed a mildly to moderately impaired left ventricular systolic function with evidence of pulmonary hypertension with moderate mitral and aortic regurgitation. She continues to be at this time on Lipitor 20 mg every 48 hours, Lasix 40 mg 4 twice a day, losartan 100 mg daily, metoprolol tartrate 25 mg twice a day, amlodipine 5 mg daily. PHYSICAL EXAMINATION: Blood pressure 164/100 with a heart rate in the 60s. LUNGS: Clear. HEART: Regular rate and rhythm. S1, S2. No S3. Holosystolic murmur in the apex and systolic and a diastolic murmur at the base. No rub. ABDOMEN: Soft, nontender. EXTREMITIES: No edema. LAB DATA: BUN and creatinine 28 and 1.05. IMPRESSION: 1. CHF with mildly to moderately impaired left ventricular systolic function. 2. Hypertension. 3. History of hypertrophic cardiomyopathy. 4. Multivalvular disease was pulmonary hypertension. RECOMMENDATIONS: From the cardiac standpoint, I will switch her to oral diuretics in view of her blood pressure being elevated. I will add to her regimen hydralazine. If she is stable, I would expect she should be able to be discharged home soon and followed as an outpatient to see if further evaluation of her valvular structures will be needed. I have discussed with her those findings. MMODL / IJN: [id number] /
[2018-08-24] MEDS: hydrALAZINE HCL 25 MG TAB PO SCH ×2 (11:26→21:15)
[2018-08-24 12:15] LABS: Glucose,Whole Blood 202 mg/dL (75-99)
[2018-08-24 16:50] LABS: Glucose,Whole Blood 135 mg/dL (75-99)
[2018-08-24] MEDS: glipiZIDE 10 MG TAB PO SCH (17:14)
[2018-08-24] MEDS: metFORMIN 500 MG TAB PO SCH (17:14)
[2018-08-24] MEDS: FUROSEMIDE 20 MG TAB PO SCH (17:14)
[2018-08-24 20:54] LABS: Glucose,Whole Blood 135 mg/dL (75-99)
[2018-08-24] MEDS ORDERED: METFORMIN HCL PO SCH (21:00)
[2018-08-24] MEDS ORDERED: GLYBURIDE PO SCH (21:00)
[2018-08-24] MEDS: MAGNESIUM OXIDE 400 MG TAB PO SCH (21:15)
[2018-08-24] MEDS: LORATADINE 10 MG TAB PO SCH (21:16)
[2018-08-24] MEDS: ATORVASTATIN 20 MG TAB PO SCH (21:17)
[2018-08-25 01:59] VITALS: RESP 16
[2018-08-25 05:50] LABS: Glucose,Whole Blood 123 mg/dL (75-99)
[2018-08-25] MEDS: INSULIN ASPART (NovoLOG) 100 UNIT/ML VIAL SQ SCH (06:14)
[2018-08-25] MEDS: glipiZIDE 10 MG TAB PO SCH (06:35)
[2018-08-25] MEDS: PANTOPRAZOLE 40 MG TABLET PO SCH (06:35)
[2018-08-25] MEDS: metFORMIN 500 MG TAB PO SCH (06:36)
[2018-08-25 07:01] LABS: Calcium 9.9 mg/dL (8.4-10.2); Potassium 4.2 mmol/L (3.5-5.1)
--- NOTE | 2018-08-25 08:02 | P.PN ---
Subjective Progress Note Date: 08/25/18 Principal diagnosis: Hypertrophic cardiomyopathy This is a pleasant 52-year-old female patient with a past medical history significant for hypertrophic cardiomyopathy and status post myomectomy who was admitted to the hospital with symptoms of shortness of breath and was diagnosed was congestive heart failure exacerbation. She underwent an echocardiogram which revealed impaired LV function with evidence of moderate AI and MR. On follow-up with her today, she seems to be doing good in terms of shortness of breath. She is feeling overall better. Denies having any chest pain or chest discomfort, dizziness, or syncope. She still have bilateral rhonchi. She has been getting up and around and she would like to be discharged home. A small dose of diuretics was added to her current medical regimen yesterday area which she seems to be tolerating that very well. Objective - Vital Signs Vital signs: Vital Signs Temp 98.6 F 08/25/18 04:00 Pulse 51 L 08/25/18 04:00 Resp 16 08/25/18 04:00 BP 132/62 08/25/18 04:00 Pulse Ox 97 08/25/18 04:00 Intake & Output 08/24/18 08/25/18 08/25/18 18:59 06:59 18:59 Intake Total 840 10 240 Balance 840 10 240 Weight 74.5 kg Intake: IV 10 .9 10 Oral 840 240 Other: Voiding Method Toilet # Voids 1 2 - Constitutional General appearance: Present: no acute distress - Respiratory Respiratory: bilateral: rales - Cardiovascular Rhythm: regular Heart sounds: normal: S1, S2 - Labs CBC & Chem 7: 08/22/18 17:43 08/25/18 05:37 Labs: Abnormal Lab Results - Last 24 Hours (Table) 08/24/18 08/24/18 08/24/18 Range/Units 12:12 16:46 20:51 Sodium (137-145) mmol/L BUN (7-17) mg/dL Creatinine (0.52-1.04) mg/dL Glucose (74-99) mg/dL POC Glucose (mg/dL) 202 H 135 H 135 H (75-99) mg/dL 08/25/18 08/25/18 Range/Units 05:37 05:45 Sodium 134 L (137-145) mmol/L BUN 32 H (7-17) mg/dL Creatinine 1.05 H (0.52-1.04) mg/dL Glucose 110 H (74-99) mg/dL POC Glucose (mg/dL) 123 H (75-99) mg/dL Assessment and Plan Assessment: Assessment #1 CHF secondary to systolic dysfunction #2 history of hypertrophic cardiomyopathy and status post myomectomy #3 valvular heart disease was moderate MR and AI #4 pulmonary hypertension #5 multiple comorbid conditions Plan #1 continue the current medical regimen #2 from the cardiac standpoint, the patient can be discharged home
--- NOTE | 2018-08-25 08:29 | P.DS ---
Providers Date of admission: 08/22/18 19:55 Attending physician: Alexandra Palumbo Consults: 08/22/18 19:11 Consult Physician Routine Consulting Provider: Madeline Brunner Consult Reason/Comments: SOB/weight gain/leg swelling, hx CHF, elevation BNP Do you want consulting provider notified?: Yes, Notify in am Primary care physician: Rubens York Hospital Course: Diagnoses: Acute and chronic systolic congestive heart failure History of coronary artery disease status post CABG History of hypertrophic cardiomyopathy Diabetes mellitus Hypertension Hyperlipidemia History of asthma History of cervical cancer Hospital course: This is a pleasant 52 years old female with past medical history of diabetes mellitus, hypertension, hyperlipidemia, asthma, cervical cancer and hypertrophic cardiomyopathy, history of coronary artery disease status post CABG which was diagnosed about 1 year ago that she has heart failure. She is a patient of Dr. Tod manzo with Dr. brunner in the outpatient setting. Presents with progressive dyspnea over one week. Patient has been evaluated by biomedical engineering internship and treated with IV diuretics for acute systolic CHF. Patient showed interval improvement and her breathing came back to normal state. Her diuretics is change to oral doses. Patient denies any other symptoms. Patient was cleared by cardiology team for discharge Patient feels she is ready to be discharged home Problems and management plan was discussed with the patient and she verbalized understanding and acceptance Patient was found stable and can be discharged home and guarded prognosis however she needs follow-up as an outpatient. Patient was instructed to follow up with her PCP and biomedical engineering internship in 1 week. Patient agrees with the appointments and time and made for her she said she will follow up Gen: patient is a AAOx3, no distress CVS: S1-S2, RRR, no murmur Lungs: B/L CTA, no wheezing Abdomen: soft, no distention, no tenderness, positive bowel sounds Extremity: no leg edema or induration Time spent more than 35 minutes Patient Condition at Discharge: Good Plan - Discharge Summary Discharge Rx Participant: No New Discharge Prescriptions: No Action Dorzolamide HCl/Timolol Maleat [Cosopt Eye Drops] 1 drop BOTH EYES BID Cetirizine HCl [Zyrtec] 10 mg PO HS Salmeterol Xinafoate [Serevent Diskus] 1 puff INHALATION RT-BID PRN PRN Reason: Shortness Of Breath glyBURIDE/METFORMIN HCL [Glucovance 5-500 mg Tablet] 2 tab PO BID Omeprazole [PriLOSEC] 20 mg PO DAILY Ergocalciferol [Vitamin D2 (DRISDOL)] 50,000 unit PO FR amLODIPine [Norvasc] 5 mg PO DAILY Rosuvastatin Calcium [Crestor] 10 mg PO Q48H Losartan [Cozaar] 100 mg PO DAILY #30 tab Metoprolol Tartrate [Lopressor] 25 mg PO BID Magnesium Oxide 400 mg PO BID Furosemide [Lasix] 20 mg PO DAILY Vit C/E/Zn/Coppr/Lutein/Zeaxan [Preservision Areds 2 Softgel] 1 cap PO BID Discharge Medication List Cetirizine HCl [Zyrtec] 10 mg PO HS 01/23/14 [History] Dorzolamide HCl/Timolol Maleat [Cosopt Eye Drops] 1 drop BOTH EYES BID 01/23/14 [History] Omeprazole [PriLOSEC] 20 mg PO DAILY 01/23/14 [History] Salmeterol Xinafoate [Serevent Diskus] 1 puff INHALATION RT-BID PRN 01/23/14 [History] glyBURIDE/METFORMIN HCL [Glucovance 5-500 mg Tablet] 2 tab PO BID 01/23/14 [History] Ergocalciferol [Vitamin D2 (DRISDOL)] 50,000 unit PO FR 07/22/17 [History] Rosuvastatin Calcium [Crestor] 10 mg PO Q48H 07/22/17 [History] amLODIPine [Norvasc] 5 mg PO DAILY 07/22/17 [History] Losartan [Cozaar] 100 mg PO DAILY #30 tab 07/24/17 [Rx] Furosemide [Lasix] 20 mg PO DAILY 08/22/18 [History] Magnesium Oxide 400 mg PO BID 08/22/18 [History] Metoprolol Tartrate [Lopressor] 25 mg PO BID 08/22/18 [History] Vit C/E/Zn/Coppr/Lutein/Zeaxan [Preservision Areds 2 Softgel] 1 cap PO BID 08/22/18 [History] Follow up Appointment(s)/Referral(s): Madeline Brunner MD [STAFF PHYSICIAN] - 09/05/18 9:00 am Jaylen Art MD [Primary Care Provider] - 1-2 days Patient Instructions/Handouts: Heart Failure (DC), Heart Healthy Diet (DC)
[2018-08-25] MEDS: MAGNESIUM OXIDE 400 MG TAB PO SCH (08:51)
[2018-08-25] MEDS: FUROSEMIDE 20 MG TAB PO SCH (08:51)
[2018-08-25] MEDS: LOSARTAN 50 MG TAB PO SCH (08:51)
[2018-08-25] MEDS: hydrALAZINE HCL 25 MG TAB PO SCH (08:51)
[2018-08-25] MEDS: amLODIPine 5 MG TAB PO SCH (08:51)
[2018-08-25] MEDS: FAMOTIDINE 20 MG/2 ML VIAL IV SCH (08:52)
[2018-08-25] MEDS: HEPARIN SODIUM,PORCINE 5,000 UNIT/ML 1 ML VIAL SQ SCH (08:52)
[2018-08-25] MEDS: METOPROLOL TARTRATE 25 MG TAB PO SCH (08:53)
[2018-08-25 08:58] VITALS: BP 152/73; PULSE 63; TEMP 97.4
[2018-08-25 15:56] LABS: Hemoglobin A1C 7.4 % (4.0-6.0)
== END 2018-08-25 09:54 | disposition home or self-care (01) ==
LOC: EC 15:38 → 3SCARD 19:55
PROVIDERS: ADMIT Hospitalist; ATTEND Hospitalist
DX: I11.0 Hypertensive heart disease with heart failure (principal); I50.23 Acute on chronic systolic (congestive) heart failure; I42.2 Other hypertrophic cardiomyopathy; Z95.1 Presence of aortocoronary bypass graft; Z90.710 Acquired absence of both cervix and uterus; J45.909 Unspecified asthma, uncomplicated; E11.39 Type 2 diabetes mellitus with other diabetic ophthalmic complication; H42 Glaucoma in diseases classified elsewhere; E78.5 Hyperlipidemia, unspecified; I08.0 Rheumatic disorders of both mitral and aortic valves; I27.20 Pulmonary hypertension, unspecified; I25.10 Atherosclerotic heart disease of native coronary artery without angina pectoris; I44.7 Left bundle-branch block, unspecified; Z88.0 Allergy status to penicillin; Z88.8 Allergy status to other drugs, medicaments and biological substances; Z91.011 Allergy to milk products; Z85.41 Personal history of malignant neoplasm of cervix uteri; Z79.899 Other long term (current) drug therapy; Z82.49 Family history of ischemic heart disease and other diseases of the circulatory system
CPT/HCPCS: 96376 ×2; 96365; 96366; 96372 ×2; 96375 ×2; 99284; 36415; 93005; 93306; 83880; 80053; 80048 ×2; 83735 ×2; 84484 ×2; 85025; 85610; 85730; 83036; 71046; G0378 ×4; J1644 ×2; J1940 ×3; J3475

== ENCOUNTER → 2018-09-01 | Outpatient (CLI) | payer BC ==
[2018-09-01 23:51] LABS: Anion Gap 12.6 mmol/L (4.00-12.00); Calcium 9.9 mg/dL (8.7-10.3); Carbon Dioxide 23.4 mmol/L (21.6-31.8); Potassium 4.4 mmol/L (3.5-5.5)
== END | disposition home or self-care (01) ==
LOC: LABWHC1 15:54
DX: I11.0 Hypertensive heart disease with heart failure (principal); I50.23 Acute on chronic systolic (congestive) heart failure; Z79.899 Other long term (current) drug therapy
CPT/HCPCS: 36415; 80048

== ENCOUNTER → 2018-10-09 | Outpatient (CLI) | payer BC ==
[2018-10-10 00:30] LABS: African American GFR (CKD) 59.8 (60.0-200.0); Anion Gap 12.9 mmol/L (4.00-12.00); Carbon Dioxide 24.1 mmol/L (21.6-31.8); Potassium 4.2 mmol/L (3.5-5.5)
[2018-10-10 01:20] LABS: Hemoglobin A1C 7.7 % (4.0-6.0)
== END | disposition home or self-care (01) ==
LOC: LABWHC1 16:02
PROVIDERS: ATTEND Internal Medicine Interventional Cardiology
DX: E11.9 Type 2 diabetes mellitus without complications (principal); I10 Essential (primary) hypertension
CPT/HCPCS: 36415; 80051; 82565; 83036; 84520

== ENCOUNTER → 2018-10-15 | Day surgery (SDC) | payer BC ==
[2018-10-09 15:53] VITALS: BMI 32.8
[~2018-10-15] MED LIST: ATORVASTATIN 20 MG TAB PO SCH; DORZOLAMIDE-TIMOLOL 2.23%/0.68 10ML BTL BOTH EYES SCH; ERGOCALCIFEROL 50,000 UNIT CAP PO SCH; FORMOTEROL FUMARATE 20 MCG/2 ML NEBU INHALATION PRN; FUROSEMIDE 20 MG TAB PO SCH; GLYBURIDE PO SCH; MAGNESIUM OXIDE 400 MG TAB PO SCH; METFORMIN HCL PO SCH; METOPROLOL TARTRATE 12.5 MG TAB PO SCH; MIDAZOLAM (PF) 2 MG/2 ML VIAL IVP ONE; NON-FORMULARY DRUG (Cetirizine Hcl [Zyrtec] 10 MG) PO SCH; NON-FORMULARY DRUG (Vit C/E/Zn/Coppr/Lutein/Zeaxan [Preservision Areds 2 Softgel] 1 CAP) PO SCH; PANTOPRAZOLE 40 MG TABLET PO SCH; SODIUM CHLORIDE 0.9% 1,000 ML IV SCH; SODIUM CHLORIDE 0.9% 500 ML 500 ML IV ONE; amLODIPine 5 MG TAB PO SCH; fentaNYL (PF) 50 MCG/ML 2 ML AMP ONE; hydrALAZINE HCL 25 MG TAB PO SCH
[2018-10-15 08:33] VITALS: RESP 16; TEMP 97.8
[2018-10-15 08:35] LABS: Glucose,Whole Blood 196 mg/dL (75-99)
[2018-10-15] MEDS: BENZOCAINE SPRAY 1 CAN MUCOUS MEM ONE ×2 (09:40→09:48)
[2018-10-15] MEDS: MIDAZOLAM (PF) 2 MG/2 ML VIAL IVP ONE ×2 (09:44→09:48)
[2018-10-15] MEDS: fentaNYL (PF) 50 MCG/ML 2 ML AMP IVP ONE ×2 (09:46→09:48)
--- NOTE | 2018-10-15 10:34 | ECHOT ---
TRANSESOPHAGEAL ECHOCARDIOGRAM INDICATION: Evaluation of aortic and mitral valve. PROCEDURE: After explaining the procedure to the patient, its risks and the complications, blood pressure, heart rate, O2 saturation was monitored. The throat was sprayed with Cetacaine. She received 3 mg intravenous Versed and 50 mcg intravenous fentanyl. The probe was introduced in the esophagus without difficulty. Images were obtained. Following that, the probe was removed. There was no immediate complication. FINDINGS: Left atrial size is mildly dilated. Left atrial appendage is normal. Left ventricular size is normal. There is evidence of global hypokinesis with ejection fraction of 40% to 45%. The aortic valve is a tricuspid valve and appears to be normal. Mitral valve is mildly thickened with no prolapse. The tricuspid valve is normal. Descending thoracic aorta appears to be normal. Contrast bubble study revealed no evidence of shunting across the interatrial septum with Valsalva maneuver. No pericardial effusion was noted. Doppler pulse wave and color Doppler obtained revealed moderate mitral and tricuspid regurgitation with moderate to severe aortic regurgitation. The estimated right ventricular systolic pressure was 88 mmHg consistent with severe pulmonary hypertension. There was no shunting across the interatrial septum. CONCLUSION: 1. Mildly dilated left atrium. 2. Normal left ventricular size with mild to moderate global hypokinesis. 3. Normal appearance of the tricuspid aortic valve with moderate to severe aortic regurgitation. 4. Mild thickening of the mitral valve leaflets with moderate central mitral regurgitation. 5. Moderate tricuspid regurgitation with severe pulmonary hypertension. 6. No shunting across the interatrial septum. 7. No pericardial effusion. Duration of procedure is 15 minutes. MMODL / IJN: [id number] /
[2018-10-15 11:34] VITALS: BP 142/68; PULSE 55
== END | disposition home or self-care (01) ==
LOC: CATHCVL 07:57
PROVIDERS: ATTEND Internal Medicine Interventional Cardiology
DX: I42.1 Obstructive hypertrophic cardiomyopathy (principal); I11.9 Hypertensive heart disease without heart failure; I08.1 Rheumatic disorders of both mitral and tricuspid valves; I27.20 Pulmonary hypertension, unspecified; E11.9 Type 2 diabetes mellitus without complications; E78.5 Hyperlipidemia, unspecified; Z79.899 Other long term (current) drug therapy; Z79.84 Long term (current) use of oral hypoglycemic drugs; Z88.0 Allergy status to penicillin; Z91.09 Other allergy status, other than to drugs and biological substances
CPT/HCPCS: 93312; 93320; 93325; J3010; J2250

== ENCOUNTER → 2018-10-31 | Outpatient (CLI) | payer BC ==
[2018-10-31 15:30] LABS: HCT 32.8 % (34.0-46.0); HGB 10.7 gm/dL (11.4-16.0); Hypochromasia Slight; MCH 25.9 pg (25.0-35.0); MCHC 32.5 g/dL (31.0-37.0); MCV 79.8 fL (80.0-100.0); Mean Platelet Volume 7.6; Platelet Count 271 k/uL (150-450); RBC 4.11 m/uL (3.80-5.40); RDW 14.8 % (11.5-15.5); WBC 9.3 k/uL (3.8-10.6)
[2018-10-31 15:38] LABS: Magnesium 1.7 mg/dL (1.6-2.3); Potassium 4.5 mmol/L (3.5-5.1)
[2018-11-01 17:42] LABS: Iron Saturation 7.03 (12.00-45.00)
== END | disposition home or self-care (01) ==
LOC: LABPAT 15:05
PROVIDERS: ATTEND Internal Medicine Interventional Cardiology
DX: Z01.812 Encounter for preprocedural laboratory examination (principal); I35.1 Nonrheumatic aortic (valve) insufficiency
CPT/HCPCS: 80051; 82565; 82947; 83540; 83550; 83735; 84520; 85027

== ENCOUNTER 2018-11-05 12:00 | Day surgery (SDC) | payer BC ==
[2018-10-28 15:46] VITALS: BMI 32.8
[2018-11-05 11:44] VITALS: RESP 16; TEMP 97.7
[~2018-11-05 12:00] MED LIST changes: +ALPRAZolam 0.25 MG TAB PO PRN; +ALPRAZolam 0.5 MG TAB PO PRN; +ASPIRIN 325 MG TAB PO STA; -ATORVASTATIN 20 MG TAB PO SCH; +ATORVASTATIN 80 MG TAB PO STA; -DORZOLAMIDE-TIMOLOL 2.23%/0.68 10ML BTL BOTH EYES SCH; -ERGOCALCIFEROL 50,000 UNIT CAP PO SCH; -FORMOTEROL FUMARATE 20 MCG/2 ML NEBU INHALATION PRN; -FUROSEMIDE 20 MG TAB PO SCH; -GLYBURIDE PO SCH; -MAGNESIUM OXIDE 400 MG TAB PO SCH; -METFORMIN HCL PO SCH; -METOPROLOL TARTRATE 12.5 MG TAB PO SCH; -MIDAZOLAM (PF) 2 MG/2 ML VIAL IVP ONE; +NITROGLYCERIN SL TABS 0.4 MG TAB SUBLINGUAL PRN; -NON-FORMULARY DRUG (Cetirizine Hcl [Zyrtec] 10 MG) PO SCH; -NON-FORMULARY DRUG (Vit C/E/Zn/Coppr/Lutein/Zeaxan [Preservision Areds 2 Softgel] 1 CAP) PO SCH; -PANTOPRAZOLE 40 MG TABLET PO SCH; +SODIUM CHLORIDE 0.9% 1,000 ML IV ONE; -SODIUM CHLORIDE 0.9% 1,000 ML IV SCH; +SODIUM CHLORIDE 0.9% 1,000 ML in EMPTY BAG 1 BAG IV ONE; -SODIUM CHLORIDE 0.9% 500 ML 500 ML IV ONE; -amLODIPine 5 MG TAB PO SCH; +fentaNYL (PF) 50 MCG/ML 2 ML AMP IVP ONE; -fentaNYL (PF) 50 MCG/ML 2 ML AMP ONE; -hydrALAZINE HCL 25 MG TAB PO SCH
[2018-11-05] MEDS ORDERED: LIDOCAINE 1% INJ 10MG/ML (20 ML MDV) ONE (12:01)
[2018-11-05] MEDS ORDERED: HEPARIN SODIUM 1,000 UN/ML (10ML VL) ONE (12:01)
[2018-11-05] MEDS ORDERED: fentaNYL (PF) 50 MCG/ML 2 ML AMP ONE (12:01)
[2018-11-05] MEDS ORDERED: VERAPAMIL 2.5 MG/ML 2 ML AMP ONE (12:01)
[2018-11-05] MEDS: MIDAZOLAM (PF) 2 MG/2 ML VIAL IVP ONE ×2 (12:04→12:10)
[2018-11-05] MEDS ORDERED: LIDOCAINE 1% INJ 10MG/ML (20 ML MDV) SQ ONE (12:07)
[2018-11-05] MEDS ORDERED: VERAPAMIL SYRINGE (5 MG/10 ML) INTRAARTER ONE (12:09)
[2018-11-05] MEDS ORDERED: HEPARIN SODIUM 1,000 UN/ML (10ML VL) IV ONE (12:14)
[2018-11-05 12:32] LABS: O2 Sat Blood Gas 46.8 %
[2018-11-05 12:34] LABS: O2 Sat Blood Gas 80.1 %
[2018-11-05 12:36] LABS: O2 Sat Blood Gas 54.7 %
[2018-11-05] MEDS ORDERED: IOPAMIDOL-370 100ML BTL INJ ONE (12:37)
[2018-11-05] MEDS ORDERED: IOPAMIDOL-370 50ML BTL INJ ONE (12:38)
[2018-11-05] MEDS ORDERED: RX INFO: IV CONTRAST WAS GIVEN 1 EACH MISC MISCELLANE PRN (13:06)
[2018-11-05] MEDS ORDERED: FORMOTEROL FUMARATE 20 MCG/2 ML NEBU INHALATION PRN (13:07)
[2018-11-05] MEDS ORDERED: ROSUVASTATIN CALCIUM 10 MG PO SCH (13:15)
[2018-11-05] MEDS ORDERED: SODIUM CHLORIDE 0.9% 1,000 ML IV SCH (13:15)
[2018-11-05 14:02] LABS: Glucose,Whole Blood 257 mg/dL (75-99)
--- NOTE | 2018-11-05 18:17 | CC ---
CARDIAC CATHETERIZATION REPORT Ms. Martínez is 52-year-old female with known history of hypertension, hyperlipidemia, diabetes mellitus, prior history of hypertrophic cardiomyopathy and myomectomy who recently was admitted with symptoms of congestive heart failure. She underwent further evaluation and was found to have moderate to severe aortic regurgitation, moderate to severe mitral and tricuspid regurgitation with pulmonary hypertension. In view of that, recommendation made regarding cardiac catheterization. The procedures as well as risks and complications were discussed with the patient who is in full understanding and agreement. DESCRIPTION OF THE PROCEDURE: Patient was brought to the labor economics professor in a fasting semi-sedated state after receiving fentanyl and Benadryl and achieving moderate conscious sedated state, using Xylocaine anesthesia and Seldinger technique, a 6-Tajik sheath was introduced in the right radial artery. Following that, the venous access in the brachial area was exchanged to a 6-Tajik sheath. Right heart catheterization was performed using [place]-Anju catheter. Multiple pressure and samples were obtained. Cardiac output by thermodilution was calculated. Following that, selective right and left coronary angiography was performed using 5-Tajik 3 and half bend, right and left Moises catheter. Multiple views of the right coronary artery including hemiaxial views were obtained. Following that, 5-Tajik tight pigtail catheter was introduced in the left ventricle and a 30 degree MOORE view of the left ventricle was obtained and an THAI view of the ascending aorta was performed. Following that, catheter and sheath were removed. Hemostasis was obtained with deployment of a TR band and compression of the right brachial area. There was no immediate complication. Patient was returned to her room in stable condition. Of note, the patient received 4000 units of intravenous heparin as well as intra-arterial verapamil. HEMODYNAMICS: Right atrial saturation of 56%, pulmonary artery saturation of 47%, arterial saturation of 80%. Cardiac output by thermodilution of 5.8 L/minute and by Jennifer of 3.5 L/minute. Pulmonary artery systolic pressure of 60 with a diastolic of 25 and a mean of 40 mmHg. Pulmonary capillary wedge pressure: A-wave of 24, V-wave of 32 with a mean of 22 mmHg. Right ventricle systolic pressure of 60 with an end-diastolic of 10. Right atrium A- wave of 12, V-wave 12 with a mean of 9 mmHg. There was no gradient across the aortic valve. The left ventricular end-diastolic pressure was 20 mmHg. CORONARIES: LEFT MAIN: This is a short size vessel bifurcating into left circumflex, left anterior descending artery, left main coronary artery has no evidence of high-grade stenosis. LEFT ANTERIOR DESCENDING ARTERY: This is a large-sized vessel reaching toward the apex, tapers down in distal third, giving rise to 2 diagonal branches of moderate to large caliber. Distally the vessel is small in caliber. The LAD as well as branches have no evidence of obstructive coronary artery disease. LEFT CIRCUMFLEX: This is a large nondominant vessel giving rise to 2 obtuse marginal branches. The left circumflex as well as branches have no evidence of obstructive coronary artery disease. RIGHT CORONARY ARTERY: This is a large dominant vessel bifurcating distally to PDA and posterolateral segment branches the right PDA and the PLV and PDA reach toward the inferoapical and inferolateral wall. The mid right coronary artery has a 10% to 20% plaque. The rest of the vessel has no high-grade stenosis. LEFT VENTRICULOGRAM: Left ventriculogram was performed in 30 degree MOORE view and revealed mild global hypokinesis. Estimated ejection fraction is 50%. There was a 2+ mitral regurgitation noted. AORTOGRAM: Aortogram was performed in the THAI view and revealed a tricuspid aortic valve with a 3+ aortic regurgitation. CONCLUSION: 1. Mild coronary artery disease involving the right coronary artery. 2. Mildly impaired left ventricular systolic function with 3+ aortic regurgitation and 2+ mitral regurgitation. 3. Elevated pulmonary pressure with pulmonary hypertension. RECOMMENDATIONS: In view of findings and anatomy, I recommend proceeding with evaluation for aortic, mitral and tricuspid valve repair. Those findings and recommendations were discussed with the patient and family who are in full understanding and agreement. Duration of procedure is 35 minutes. MMODL / IJN: [id number] /
[2018-11-05 19:06] VITALS: BP 146/57; PULSE 58
[2018-11-05] MEDS ORDERED: MAGNESIUM OXIDE 400 MG TAB PO SCH (21:00)
[2018-11-05] MEDS ORDERED: NON-FORMULARY DRUG (Cetirizine Hcl [Zyrtec] 10 MG) PO SCH (21:00)
[2018-11-05] MEDS ORDERED: hydrALAZINE HCL 25 MG TAB PO SCH (21:00)
[2018-11-05] MEDS ORDERED: METOPROLOL TARTRATE 12.5 MG TAB PO SCH (21:00)
[2018-11-05] MEDS ORDERED: DORZOLAMIDE-TIMOLOL 2.23%/0.68 10ML BTL BOTH EYES SCH (21:00)
[2018-11-06] MEDS ORDERED: PANTOPRAZOLE 40 MG TABLET PO SCH (07:30)
[2018-11-06] MEDS ORDERED: amLODIPine 5 MG TAB PO SCH (09:00)
[2018-11-07] MEDS ORDERED: ERGOCALCIFEROL 50,000 UNIT CAP PO SCH (09:00)
[2018-11-12 07:39] LABS: Glucose,Whole Blood 238 mg/dL (75-99)
== END 2018-11-05 17:40 | disposition home or self-care (01) ==
LOC: CATHCVL 12:00
PROVIDERS: ATTEND Internal Medicine Interventional Cardiology
DX: I08.3 Combined rheumatic disorders of mitral, aortic and tricuspid valves (principal); I10 Essential (primary) hypertension; E11.9 Type 2 diabetes mellitus without complications; E78.2 Mixed hyperlipidemia; E66.9 Obesity, unspecified; Z68.32 Body mass index [BMI] 32.0-32.9, adult; E78.00 Pure hypercholesterolemia, unspecified; I25.10 Atherosclerotic heart disease of native coronary artery without angina pectoris; I27.20 Pulmonary hypertension, unspecified; Z79.84 Long term (current) use of oral hypoglycemic drugs; Z79.899 Other long term (current) drug therapy; Z88.0 Allergy status to penicillin; Z88.8 Allergy status to other drugs, medicaments and biological substances
CPT/HCPCS: 93460; 85018; 82810; C1769 ×2; C1751; C1894 ×2; J2001; J3010; J1644; Q9967 ×2; J2250

== ENCOUNTER → 2019-02-09 | Outpatient (CLI) | payer BC ==
[2019-02-09 16:41] LABS: Anisocytosis Slight; HCT 30.4 % (34.0-46.0); HGB 9.6 gm/dL (11.4-16.0); Hypochromasia Slight; MCH 26.6 pg (25.0-35.0); MCHC 31.6 g/dL (31.0-37.0); MCV 83.9 fL (80.0-100.0); Mean Platelet Volume 7.6; Platelet Count 194 k/uL (150-450); RBC 3.63 m/uL (3.80-5.40); RDW 16.4 % (11.5-15.5); WBC 6.6 k/uL (3.8-10.6)
[2019-02-09 16:44] LABS: Prothrombin Time 10.7 sec (9.0-12.0)
[2019-02-09 16:49] LABS: African American GFR (CKD) 75 (>60 ml/min/1.73 sqM); Anion Gap 10 mmol/L; Blood Urea Nitrogen 18 mg/dL (7-17); Calcium 9.8 mg/dL (8.4-10.2); Carbon Dioxide 26 mmol/L (22-30); Chloride 104 mmol/L (98-107); Glucose 91 mg/dL (74-99); Potassium 4.1 mmol/L (3.5-5.1); Sodium 140 mmol/L (137-145)
== END | disposition home or self-care (01) ==
LOC: LABWHC1 15:59
PROVIDERS: ATTEND Internal Medicine
DX: Z01.812 Encounter for preprocedural laboratory examination (principal); I25.10 Atherosclerotic heart disease of native coronary artery without angina pectoris
CPT/HCPCS: 36415; 80048; 85027; 85610

== ENCOUNTER 2019-03-19 14:05 | Inpatient (IN) | payer BC ==
[2019-03-19] MEDS ORDERED: ONDANSETRON 4 MG/2 ML VIAL IVP STA (14:41)
[2019-03-19] MEDS ORDERED: SODIUM CHLORIDE 0.9% 1,000 ML IV STA (14:41)
--- NOTE | 2019-03-19 14:56 | ED ---
Nausea/Vomiting/Diarrhea HPI - General Chief complaint: Nausea/Vomiting/Diarrhea Stated complaint: poss dehydration & UTI Time Seen by Provider: 03/19/19 14:15 Source: patient Mode of arrival: ambulatory Limitations: no limitations - History of Present Illness Initial comments: The patient is a 53-year-old female with past medical history of diabetes and hypertension presents to the emergency room in with reported nausea, vomiting and right-sided back pain for the past 3-4 days. She states that she has dysuria and increased frequency of voiding. She is concerned for urinary tract infection. States that she has had chills and developed nausea. Saturday she was having multiple episodes of nonbilious, nonbloody vomiting. Denies any recorded fevers. Eyes any changes in her bowel habits to include diarrhea, constant patient, melanotic stools or hematochezia. She was recently hospitalized at [facility] end of January. She did have a right external iliac stent placed as well as a pacemaker and a TAVER. Called her doctor who recommended that she going to the emergency room in for further evaluation. She denies any chest pain, cough or shortness of breath - Related Data Home Medications Medication Instructions Recorded Confirmed Cetirizine HCl [Zyrtec] 10 mg PO HS 01/23/14 03/19/19 Dorzolamide HCl/Timolol Maleat 1 drop BOTH EYES BID 01/23/14 03/19/19 [Cosopt Eye Drops] Omeprazole [PriLOSEC] 20 mg PO DAILY 01/23/14 03/19/19 Salmeterol Xinafoate [Serevent 1 puff INHALATION RT-BID PRN 01/23/14 03/19/19 Diskus] glyBURIDE/METFORMIN HCL 1 tab PO BID 01/23/14 03/19/19 [Glucovance 5-500 mg Tablet] Ergocalciferol [Vitamin D2 50,000 unit PO FR 07/22/17 03/19/19 (DRISDOL)] Rosuvastatin Calcium [Crestor] 10 mg PO Q48H 07/22/17 03/19/19 amLODIPine [Norvasc] 10 mg PO DAILY 07/22/17 03/19/19 Magnesium Oxide 400 mg PO BID 08/22/18 03/19/19 Vit C/E/Zn/Coppr/Lutein/Zeaxan 1 cap PO BID 08/22/18 03/19/19 [Preservision Areds 2 Softgel] Furosemide [Lasix] 20 mg PO DAILY 10/09/18 03/19/19 Aspirin EC [Ecotrin Low Dose] 81 mg PO DAILY 03/19/19 03/19/19 Clopidogrel Bisulfate [Plavix] 75 mg PO DAILY 03/19/19 03/19/19 Cranberry 4200mg 2 tab PO BID 03/19/19 03/19/19 Lisinopril [Zestril] 2.5 mg PO DAILY 03/19/19 03/19/19 Metoprolol Tartrate [Lopressor] 12.5 mg PO BID 03/19/19 03/19/19 Previous Rx's Medication Instructions Recorded hydrALAZINE HCL [Apresoline] 25 mg PO BID #60 tab 08/25/18 Allergies Allergy/AdvReac Type Severity Reaction Status Date / Time fluticasone propionate Allergy Unknown Verified 03/19/19 14:06 [From Flovent Diskus] methocarbamol [From Robaxin] Allergy Unknown Verified 03/19/19 14:06 Milk Containing Products Allergy Abdominal Verified 03/19/19 14:06 Pain Penicillins Allergy Unknown Verified 03/19/19 14:06 Review of Systems ROS Statement: Those systems with pertinent positive or pertinent negative responses have been documented in the HPI. ROS Other: All systems not noted in ROS Statement are negative. Past Medical History Past Medical History: Asthma, Cancer, Diabetes Mellitus, Hyperlipidemia, Hypertension Additional Past Medical History / Comment(s): cervical CA, glaucoma (both eyes). pt has hypertrophic cardiomyopathy History of Any Multi-Drug Resistant Organisms: None Reported Past Surgical History: Heart Catheterization, Hysterectomy Additional Past Surgical History / Comment(s): cyst removed rt wrist. surgery- septum of heart shaved down and scar tissue removed. EZEKIEL Past Anesthesia/Blood Transfusion Reactions: No Reported Reaction Past Psychological History: No Psychological Hx Reported Smoking Status: Never smoker Past Alcohol Use History: None Reported Past Drug Use History: None Reported - Past Family History Father Family Medical History: Myocardial Infarction ([place]) Mother Family Medical History: AFIB, Cancer Additional Family Medical History / Comment(s): unknown type of CA General Exam Limitations: no limitations Course Vital Signs 03/19/19 03/19/19 03/19/19 14:06 15:01 16:00 Temperature 98.2 F 101.1 F H 99.4 F Pulse Rate 86 74 63 Respiratory 18 18 16 Rate Blood Pressure 152/77 146/76 111/54 O2 Sat by Pulse 100 100 97 Oximetry 03/19/19 03/19/19 18:12 19:20 Temperature 99.1 F 98.1 F Pulse Rate 70 64 Respiratory 18 17 Rate Blood Pressure 115/70 101/65 O2 Sat by Pulse 97 99 Oximetry Medical Decision Making - Medical Decision Making Upon arrival the patient was placed into room 12. He threw history of physical exam is performed. Peripheral IV was established. The patient was given 4 mg of Zofran for her nausea. I also started her with a 1000 mL bolus of normal saline. Laboratory studies and urinalysis. I also recommended a CT of the freddie stewart's abdomen and pelvis. Repeat vitals were obtained and the patient does spike a fever of 101. She is given Tylenol. Results are remarkable for white blood cell count of 13.2. Creatinine is 1.3 from the patient's baseline of 1 area and lactic acid is elevated at 2.7. Urinalysis shows small blood, large leukocytes esterase, 33 red blood cells, greater than 182 white blood cells, many white blood cell clumps and occasional bacteria. CT of the patient's abdomen and pelvis demonstrates signs consistent with acute pyelonephritis on the right. There is right-sided hydronephrosis and hydroureter. There is an area of possible ureteral stenosis at the level of the external iliac artery. I discussed this with the patient. Admitted hospital admission. I discussed the case with Dr. Hensley who accepted admission. I also called and discussed the case with who requested I make the patient nothing by mouth at midnight did I did obtain blood cultures and started the patient on Rocephin. Patient was then transferred to the floor in stable condition - Lab Data Result diagrams: 03/19/19 14:35 03/19/19 14:35 Lab Results 03/19/19 03/19/19 03/19/19 Range/Units 14:35 14:35 14:35 WBC 13.2 H (3.8-10.6) k/uL RBC 3.97 (3.80-5.40) m/uL Hgb 11.4 (11.4-16.0) gm/dL Hct 33.5 L (34.0-46.0) % MCV 84.3 (80.0-100.0) fL MCH 28.7 (25.0-35.0) pg MCHC 34.0 (31.0-37.0) g/dL RDW 15.6 H (11.5-15.5) % Plt Count 277 (150-450) k/uL Neutrophils % 80 % Lymphocytes % 11 % Monocytes % 7 % Eosinophils % 1 % Basophils % 0 % Neutrophils # 10.6 H (1.3-7.7) k/uL Lymphocytes # 1.5 (1.0-4.8) k/uL Monocytes # 0.9 (0-1.0) k/uL Eosinophils # 0.1 (0-0.7) k/uL Basophils # 0.1 (0-0.2) k/uL Poikilocytosis Slight Sodium 139 (137-145) mmol/L Potassium 4.4 (3.5-5.1) mmol/L Chloride 102 (98-107) mmol/L Carbon Dioxide 22 (22-30) mmol/L Anion Gap 15 mmol/L BUN 23 H (7-17) mg/dL Creatinine 1.33 H (0.52-1.04) mg/dL Est GFR (CKD-EPI)AfAm 52 (>60 ml/min/1.73 sqM) Est GFR (CKD-EPI)NonAf 45 (>60 ml/min/1.73 sqM) Glucose 169 H (74-99) mg/dL Lactic Ac Sepsis Rflx Plasma Lactic Acid Juan Francisco (0.7-2.0) mmol/L Calcium 10.7 H (8.4-10.2) mg/dL Total Bilirubin 0.8 (0.2-1.3) mg/dL AST 24 (14-36) U/L ALT 16 (9-52) U/L Alkaline Phosphatase 101 (38-126) U/L Total Protein 8.8 H (6.3-8.2) g/dL Albumin 4.6 (3.5-5.0) g/dL Lipase 147 (23-300) U/L Urine Color Yellow Urine Appearance Turbid H (Clear) Urine pH 7.0 (5.0-8.0) Ur Specific [place] 1.020 (1.001-1.035) Urine Protein 3+ H (Negative) Urine Glucose (UA) Negative (Negative) Urine Ketones Negative (Negative) Urine Blood Small H (Negative) Urine Nitrite Negative (Negative) Urine Bilirubin Negative (Negative) Urine Urobilinogen <2.0 (<2.0) mg/dL Ur Leukocyte Esterase Large H (Negative) Urine RBC 33 H (0-5) /hpf Urine WBC >182 H (0-5) /hpf Urine WBC Clumps Many H (None) /hpf Ur Squamous Epith Cells 3 (0-4) /hpf Urine Bacteria Occasional H (None) /hpf Urine Mucus Few H (None) /hpf 03/19/19 03/19/19 Range/Units 14:35 15:27 WBC (3.8-10.6) k/uL RBC (3.80-5.40) m/uL Hgb (11.4-16.0) gm/dL Hct (34.0-46.0) % MCV (80.0-100.0) fL MCH (25.0-35.0) pg MCHC (31.0-37.0) g/dL RDW (11.5-15.5) % Plt Count (150-450) k/uL Neutrophils % % Lymphocytes % % Monocytes % % Eosinophils % % Basophils % % Neutrophils # (1.3-7.7) k/uL Lymphocytes # (1.0-4.8) k/uL Monocytes # (0-1.0) k/uL Eosinophils # (0-0.7) k/uL Basophils # (0-0.2) k/uL Poikilocytosis Sodium (137-145) mmol/L Potassium (3.5-5.1) mmol/L Chloride (98-107) mmol/L Carbon Dioxide (22-30) mmol/L Anion Gap mmol/L BUN (7-17) mg/dL Creatinine (0.52-1.04) mg/dL Est GFR (CKD-EPI)AfAm (>60 ml/min/1.73 sqM) Est GFR (CKD-EPI)NonAf (>60 ml/min/1.73 sqM) Glucose (74-99) mg/dL Lactic Ac Sepsis Rflx Y Plasma Lactic Acid Juan Francisco 2.7 H* (0.7-2.0) mmol/L Calcium (8.4-10.2) mg/dL Total Bilirubin (0.2-1.3) mg/dL AST (14-36) U/L ALT (9-52) U/L Alkaline Phosphatase (38-126) U/L Total Protein (6.3-8.2) g/dL Albumin (3.5-5.0) g/dL Lipase (23-300) U/L Urine Color Urine Appearance (Clear) Urine pH (5.0-8.0) Ur Specific [place] (1.001-1.035) Urine Protein (Negative) Urine Glucose (UA) (Negative) Urine Ketones (Negative) Urine Blood (Negative) Urine Nitrite (Negative) Urine Bilirubin (Negative) Urine Urobilinogen (<2.0) mg/dL Ur Leukocyte Esterase (Negative) Urine RBC (0-5) /hpf Urine WBC (0-5) /hpf Urine WBC Clumps (None) /hpf Ur Squamous Epith Cells (0-4) /hpf Urine Bacteria (None) /hpf Urine Mucus (None) /hpf - EKG Data EKG Comments: EKG demonstrates a ventricularly paced rhythm with a rate of 77. OH interval 114. Respiratory 42. QTC 486. No acute ST segment elevations or depressions concerning for ischemic changes. No sgarbossa criteria Disposition Clinical Impression: SARAN (acute kidney injury), Severe sepsis, Pyelonephritis Disposition: ADMITTED IP TO THIS HOSP Condition: Stable Is patient prescribed a controlled substance at d/c from ED?: No Decision to Admit Reason: Admit from EC Decision Date: 03/19/19 Decision Time: 17:46
[2019-03-19] MEDS ORDERED: ACETAMINOPHEN TAB 500 MG TAB PO STA (15:05)
[2019-03-19 15:11] LABS: Albumin 4.6 g/dL (3.5-5.0); Calcium 10.7 mg/dL (8.4-10.2); Potassium 4.4 mmol/L (3.5-5.1); Total Bilirubin 0.8 mg/dL (0.2-1.3); Total Protein 8.8 g/dL (6.3-8.2)
[2019-03-19 15:12] LABS: Appearance,Urine Turbid (Clear); Bacteria,Urine Occasional /hpf; Bilirubin,Urine Negative (Negative); Blood,Urine Small (Negative); Color,Urine Yellow; Glucose,Urine (UA) Negative (Negative); Ketones,Urine Negative (Negative); Leukocyte Esterase,Urine Large (Negative); Mucus,Urine Few /hpf; Nitrite,Urine Negative (Negative); Protein,Urine 3+ (Negative); RBC,Urine 33 /hpf (0-5); Squamous Epithelial Cell,Urine 3 /hpf (0-4); Urobilinogen,Urine <2.0 mg/dL (<2.0)
[2019-03-19 15:39] LABS: Basophils # (A) 0.1 k/uL (0-0.2); Basophils % (A) 0 %; Eosinophils # (A) 0.1 k/uL (0-0.7); Eosinophils % (A) 1 %; HCT 33.5 % (34.0-46.0); HGB 11.4 gm/dL (11.4-16.0); Lymphocytes # (A) 1.5 k/uL (1.0-4.8); Lymphocytes % (A) 11 %; MCH 28.7 pg (25.0-35.0); MCV 84.3 fL (80.0-100.0); Mean Platelet Volume 6.2; Monocytes # (A) 0.9 k/uL (0-1.0); Monocytes % (A) 7 %; Neutrophils # (A) 10.6 k/uL (1.3-7.7); Neutrophils % (A) 80 %; Platelet Count 277 k/uL (150-450); Poikilocytosis Slight; RBC 3.97 m/uL (3.80-5.40); RDW 15.6 % (11.5-15.5); WBC 13.2 k/uL (3.8-10.6)
--- NOTE | 2019-03-19 16:26 | CT ---
EXAMINATION TYPE: CT abdomen pelvis w con DATE OF EXAM: 03/19/2019 COMPARISON: None HISTORY: Generalized pain with N/V. CT DLP: 1283.5 mGycm Automated exposure control for dose reduction was used. TECHNIQUE: Helical acquisition of images from the lung bases through the pelvis have been completed. CONTRAST: Performed without Oral Contrast and with IV Contrast, patient injected with 100 mL of Isovue 300. FINDINGS: Postop changes are present along the anterior abdominal wall. There are leads present withi n the right heart. LUNG BASES: No significant abnormality is appreciated. AORTA: There are atheromatous changes within the aortoiliac distribution, density within the common femoral artery, external iliac artery on the right may represent stent, correlate for history. Surgic al clips are present at the level of the distal abdominal aorta and common iliac artery on the right LIVER/GB: No significant abnormality is appreciated. PANCREAS: No significant abnormality is seen. SPLEEN: No significant abnormality is seen. ADRENALS: No significant abnormality is seen. KIDNEYS: Right-sided hydronephrosis is present, there is hydroureter and perinephric fluid. Caliber c hange is present to the level of the passage of the ureter at the level of the external iliac artery stent and postop change. Some enhancement along the ureter wall and renal pelvis is also present in t he right. REPRODUCTIVE ORGANS: Not seen BOWEL: No significant abnormality is seen. FREE AIR: No Free Air visible. ASCITES: None visible. PELVIC ADENOPATHY: None visualized. RETROPERITONEAL ADENOPATHY: No Retroperitoneal Adenopathy visible. URINARY BLADDER: Abnormal wall thickening present of the urinary bladder, difficult to exclude a muc osal lesion, urinary tract infection. OSSEOUS STRUCTURES: Degenerative disc changes are present in the visualized spine. Sclerosis of the sacroiliac joints with vacuum phenomenon may be due to stress changes. IMPRESSION: RIGHT-SIDED HYDRONEPHROSIS, HYDROURETER, CORRELATE TO EXCLUDE CYSTITIS, URINARY TRACT INFECTION. THER E MAY BE A URETERAL STENOSIS ON THE RIGHT DUE TO PRIOR SURGERY OR PROCEDURE, CONSIDER UROLOGY CONSULT . Additional findings above.
[2019-03-19] MEDS ORDERED: cefTRIAXone IN SWFI 1,000 MG/10 ML SYRINGE IVP STA (17:40)
[2019-03-19] MEDS ORDERED: SODIUM CHLORIDE 0.9% 500 ML 500 ML IV STA (17:44)
[2019-03-19] MEDS ORDERED: ACETAMINOPHEN TAB 325 MG TAB PO PRN (17:55)
[2019-03-19] MEDS ORDERED: ONDANSETRON 4 MG/2 ML VIAL IVP PRN (17:55)
[2019-03-19] MEDS ORDERED: NALOXONE 0.4 MG/ML 1 ML VIAL IV PRN (17:55)
[2019-03-19] MEDS ORDERED: FORMOTEROL FUMARATE 20 MCG/2 ML NEBU INHALATION PRN (17:58)
[2019-03-19] MEDS: SODIUM CHLORIDE 0.9% 1,000 ML IV SCH (18:05)
[2019-03-19] MEDS ORDERED: SODIUM CHLORIDE 0.9% 1,000 ML IV ONE (20:23)
[2019-03-19 20:51] LABS: Glucose,Whole Blood 89 mg/dL (75-99)
[2019-03-19] MEDS: METOPROLOL TARTRATE 12.5 MG TAB PO SCH (23:28)
[2019-03-19] MEDS: DORZOLAMIDE-TIMOLOL 2.23%/0.68 10ML BTL BOTH EYES SCH (23:28)
[2019-03-19] MEDS: hydrALAZINE HCL 25 MG TAB PO SCH (23:28)
[2019-03-20 06:03] LABS: Glucose,Whole Blood 107 mg/dL (75-99)
[2019-03-20 06:14] LABS: Calcium 9.3 mg/dL (8.4-10.2); Potassium 4.1 mmol/L (3.5-5.1)
[2019-03-20] MEDS: SODIUM CHLORIDE 0.9% 1,000 ML IV SCH ×2 (06:25→20:29)
[2019-03-20] MEDS: PANTOPRAZOLE 40 MG TABLET PO SCH (06:25)
[2019-03-20 06:29] LABS: Basophils % (A) 0 %; Eosinophils # (A) 0.2 k/uL (0-0.7); Eosinophils % (A) 2 %; HCT 25.2 % (34.0-46.0); Lymphocytes # (A) 1.6 k/uL (1.0-4.8); Lymphocytes % (A) 22 %; MCH 29.3 pg (25.0-35.0); MCHC 34.3 g/dL (31.0-37.0); MCV 85.4 fL (80.0-100.0); Mean Platelet Volume 5.9; Monocytes # (A) 0.7 k/uL (0-1.0); Monocytes % (A) 10 %; Neutrophils # (A) 4.6 k/uL (1.3-7.7); Neutrophils % (A) 63 %; Platelet Count 213 k/uL (150-450); Poikilocytosis Slight; RBC 2.95 m/uL (3.80-5.40); RDW 15.5 % (11.5-15.5); WBC 7.3 k/uL (3.8-10.6)
[2019-03-20 06:39] LABS: HGB 8.6 gm/dL (11.4-16.0)
--- NOTE | 2019-03-20 10:29 | P.NPCON ---
History of Present Illness - Reason for Consult acute renal failure - History of Present Illness Reason for consultation: Acute kidney injury History of present illness: Patient is a 53-year-old female seen in renal consultation for acute kidney injury. Patient's creatinine was 1.33 on admission and is down to 1.2 today. She is currently maintained on normal saline at 100 mL an hour. Patient presented to the hospital due to vomiting which started on Saturday. Patient states she was having low back pain and thought it was a UTI. Patient has Macrobid at home and took 1 dose on Saturday. However she did not take it further due to the vomiting. Patient presented to the hospital due to pain in her lower back. No hematuria or dysuria. No diarrhea. Oral intake is fair. Denies regular use of nonsteroidals. Patient has long-standing history of diabetes mellitus. Denies family history of renal disease. No significant hypotension noted. Patient states she underwent to have her and pacemaker placement about 3 weeks ago at [facility]. She was taking metformin as well as lisinopril outpatient but are currently held. Vital signs are stable. General: The patient appeared well nourished and normally developed. HEENT: Head exam is unremarkable. Neck is without jugular venous distension. LUNGS: Lungs are clear to auscultation and percussion. Breath sounds decreased. HEART: Rate and Rhythm are regular. First and second heart sounds normal. No murmurs, rubs or gallops. ABDOMEN: Abdominal exam reveals normal bowel sounds. Non-tender and non- distended. No evidence of peritonitis. EXTREMITITES: No clubbing, cyanosis, or edema. Past Medical History Past Medical History: Asthma, Cancer, Diabetes Mellitus, Hyperlipidemia, Hypertension Additional Past Medical History / Comment(s): cervical CA, glaucoma (both eyes). pt has hypertrophic cardiomyopathy, pacemaker end of january, Taver jan 2019, right iliac stent jan 2019 History of Any Multi-Drug Resistant Organisms: None Reported Past Surgical History: Heart Catheterization, Hysterectomy Additional Past Surgical History / Comment(s): cyst removed rt wrist. surgery- septum of heart shaved down and scar tissue removed. EZEKIEL Past Anesthesia/Blood Transfusion Reactions: No Reported Reaction Past Psychological History: No Psychological Hx Reported Smoking Status: Never smoker Past Alcohol Use History: None Reported Past Drug Use History: None Reported - Past Family History Father Family Medical History: Myocardial Infarction ([place]) Mother Family Medical History: AFIB, Cancer Additional Family Medical History / Comment(s): unknown type of CA Medications and Allergies Home Medications Medication Instructions Recorded Confirmed Type Cetirizine HCl [Zyrtec] 10 mg PO HS 01/23/14 03/19/19 History Dorzolamide HCl/Timolol Maleat 1 drop BOTH EYES BID 01/23/14 03/19/19 History [Cosopt Eye Drops] Omeprazole [PriLOSEC] 20 mg PO DAILY 01/23/14 03/19/19 History Salmeterol Xinafoate [Serevent 1 puff INHALATION RT-BID PRN 01/23/14 03/19/19 History Diskus] glyBURIDE/METFORMIN HCL 1 tab PO BID 01/23/14 03/19/19 History [Glucovance 5-500 mg Tablet] Ergocalciferol [Vitamin D2 50,000 unit PO FR 07/22/17 03/19/19 History (DRISDOL)] Rosuvastatin Calcium [Crestor] 10 mg PO Q48H 07/22/17 03/19/19 History amLODIPine [Norvasc] 10 mg PO DAILY 07/22/17 03/19/19 History Magnesium Oxide 400 mg PO BID 08/22/18 03/19/19 History Vit C/E/Zn/Coppr/Lutein/Zeaxan 1 cap PO BID 08/22/18 03/19/19 History [Preservision Areds 2 Softgel] hydrALAZINE HCL [Apresoline] 25 mg PO BID #60 tab 08/25/18 03/19/19 Rx Furosemide [Lasix] 20 mg PO DAILY 10/09/18 03/19/19 History Aspirin EC [Ecotrin Low Dose] 81 mg PO DAILY 03/19/19 03/19/19 History Clopidogrel Bisulfate [Plavix] 75 mg PO DAILY 03/19/19 03/19/19 History Cranberry 4200mg 2 tab PO BID 03/19/19 03/19/19 History Lisinopril [Zestril] 2.5 mg PO DAILY 03/19/19 03/19/19 History Metoprolol Tartrate [Lopressor] 12.5 mg PO BID 03/19/19 03/19/19 History Allergies Allergy/AdvReac Type Severity Reaction Status Date / Time fluticasone propionate Allergy Unknown Verified 03/19/19 14:06 [From Flovent Diskus] methocarbamol [From Robaxin] Allergy Unknown Verified 03/19/19 14:06 Milk Containing Products Allergy Abdominal Verified 03/19/19 14:06 Pain Penicillins Allergy Unknown Verified 03/19/19 14:06 Physical Exam Vitals: Vital Signs Temp Pulse Pulse Resp BP BP Pulse Ox 03/20/19 08:00 98.4 F 58 L 18 138/70 97 03/20/19 04:00 98.7 F 60 18 112/55 99 03/20/19 00:00 59 L 18 109/56 96 03/19/19 20:35 98.4 F 72 18 136/74 97 03/19/19 20:26 99.7 F H 60 18 94/51 100 03/19/19 19:20 98.1 F 64 17 101/65 99 03/19/19 18:12 99.1 F 70 18 115/70 97 03/19/19 16:00 99.4 F 63 16 111/54 97 03/19/19 15:01 101.1 F H 74 18 146/76 100 03/19/19 14:06 98.2 F 86 18 152/77 100 Intake and Output 03/19/19 03/20/19 03/20/19 22:59 06:59 14:59 Other: Voiding Method Toilet Toilet # Voids 2 1 Weight 75.7 kg Results - Lab Results Most recent lab results Calcium 9.3 mg/dL (8.4-10.2) 03/20/19 05:31 03/20/19 05:31 03/20/19 05:31 Assessment and Plan Plan: Assessment: 1. Acute kidney injury mostly prerenal secondary to intravascular volume depletion from vomiting and diuretics. Creatinine 1.33 on admission and is 1.2 today. 2. Proteinuria. Urine is also suggestive of UTI. Will need to be further worked up outpatient. Etiology is most likely diabetic kidney disease. 3. Benign hypertension. Controlled. 4. History of frequent UTIs. 5. Right-sided hydronephrosis. Urology consulted. 6. Diabetes mellitus. Plan: Maintain normal saline at 75 mL an hour. Follow-up urine culture. Avoid nephrotoxins. Continue to hold lisinopril and Lasix for now. Repeat electrolytes in the morning. Thank you for the consultation. I will continue to follow the patient with you during her hospital stay.
[2019-03-20] MEDS: CLOPIDOGREL 75 MG TAB PO SCH (11:29)
[2019-03-20] MEDS: hydrALAZINE HCL 25 MG TAB PO SCH (11:29)
[2019-03-20] MEDS: amLODIPine 10 MG TAB PO SCH (11:30)
[2019-03-20] MEDS: ASPIRIN 81 MG PO SCH (11:30)
[2019-03-20] MEDS: METOPROLOL TARTRATE 12.5 MG TAB PO SCH ×2 (11:30→20:27)
[2019-03-20] MEDS: DORZOLAMIDE-TIMOLOL 2.23%/0.68 10ML BTL BOTH EYES SCH ×2 (11:31→20:28)
[2019-03-20 11:47] LABS: Glucose,Whole Blood 141 mg/dL (75-99)
--- NOTE | 2019-03-20 13:32 | P.HPIM ---
History of Present Illness Patient developed pleasant 51-year-old the female came in with complaints of right flank pain, Dilantin tenderness nausea vomiting has been going on for last 3-4 days patient did have fever at home. Patient pain in the right flank is sharp in nature. Patient had a CAT scan of the abdomen and pelvis which showed pyelonephritis with possible obstruction in the right side and right ureteral area along with some possible cystitis. Urine is definitely abnormal does have leukocytosis although patient doesn't have any fever here patient had fever at home. Patient is found to be in acute renal failure with serum creatinine 1.30 came down to 1.2. Nephrology valid to the patient and urology was consulted for possible ureteral stent placement for hydronephrosis. Patient will be resumed on Rocephin. Will use 1 g of Rocephin because of acute renal failure patient is on lisinopril and metformin which are being held at this time because of acute renal failure. Patient was having nausea vomiting few episodes last 2-3 days and mostly nauseous. Review of Systems REVIEW OF SYSTEMS: CONSTITUTIONAL: No fever, no malaise, no fatigue. HEENT: No recent visual problems or hearing problems. Denied any sore throat. CARDIOVASCULAR: No chest pain, orthopnea, PND, no palpitations, no syncope. PULMONARY: No shortness of breath, no cough, no hemoptysis. GASTROINTESTINAL: As mentioned in HPI NEUROLOGICAL: No headaches, no weakness, no numbness. HEMATOLOGICAL: Denies any bleeding or petechiae. GENITOURINARY: As mentioned in HPI MUSCULOSKELETAL/RHEUMATOLOGICAL: Denies any joint pain, swelling, or any muscle pain. ENDOCRINE: Denies any polyuria or polydipsia. The rest of the 14-point review of systems is negative. Past Medical History Past Medical History: Asthma, Cancer, Diabetes Mellitus, Hyperlipidemia, Hypertension Additional Past Medical History / Comment(s): cervical CA, glaucoma (both eyes). pt has hypertrophic cardiomyopathy, pacemaker end of january, Taver jan 2019, right iliac stent jan 2019 History of Any Multi-Drug Resistant Organisms: None Reported Past Surgical History: Heart Catheterization, Hysterectomy Additional Past Surgical History / Comment(s): cyst removed rt wrist. surgery- septum of heart shaved down and scar tissue removed. EZEKIEL Past Anesthesia/Blood Transfusion Reactions: No Reported Reaction Past Psychological History: No Psychological Hx Reported Smoking Status: Never smoker Past Alcohol Use History: None Reported Past Drug Use History: None Reported - Past Family History Father Family Medical History: Myocardial Infarction ([place]) Mother Family Medical History: AFIB, Cancer Additional Family Medical History / Comment(s): unknown type of CA Medications and Allergies Home Medications Medication Instructions Recorded Confirmed Type Cetirizine HCl [Zyrtec] 10 mg PO HS 01/23/14 03/19/19 History Dorzolamide HCl/Timolol Maleat 1 drop BOTH EYES BID 01/23/14 03/19/19 History [Cosopt Eye Drops] Omeprazole [PriLOSEC] 20 mg PO DAILY 01/23/14 03/19/19 History Salmeterol Xinafoate [Serevent 1 puff INHALATION RT-BID PRN 01/23/14 03/19/19 History Diskus] glyBURIDE/METFORMIN HCL 1 tab PO BID 01/23/14 03/19/19 History [Glucovance 5-500 mg Tablet] Ergocalciferol [Vitamin D2 50,000 unit PO FR 07/22/17 03/19/19 History (DRISDOL)] Rosuvastatin Calcium [Crestor] 10 mg PO Q48H 07/22/17 03/19/19 History amLODIPine [Norvasc] 10 mg PO DAILY 07/22/17 03/19/19 History Magnesium Oxide 400 mg PO BID 08/22/18 03/19/19 History Vit C/E/Zn/Coppr/Lutein/Zeaxan 1 cap PO BID 08/22/18 03/19/19 History [Preservision Areds 2 Softgel] hydrALAZINE HCL [Apresoline] 25 mg PO BID #60 tab 08/25/18 03/19/19 Rx Furosemide [Lasix] 20 mg PO DAILY 10/09/18 03/19/19 History Aspirin EC [Ecotrin Low Dose] 81 mg PO DAILY 03/19/19 03/19/19 History Clopidogrel Bisulfate [Plavix] 75 mg PO DAILY 03/19/19 03/19/19 History Cranberry 4200mg 2 tab PO BID 03/19/19 03/19/19 History Lisinopril [Zestril] 2.5 mg PO DAILY 03/19/19 03/19/19 History Metoprolol Tartrate [Lopressor] 12.5 mg PO BID 03/19/19 03/19/19 History Allergies Allergy/AdvReac Type Severity Reaction Status Date / Time fluticasone propionate Allergy Unknown Verified 03/19/19 14:06 [From Flovent Diskus] methocarbamol [From Robaxin] Allergy Unknown Verified 03/19/19 14:06 Milk Containing Products Allergy Abdominal Verified 03/19/19 14:06 Pain Penicillins Allergy Unknown Verified 03/19/19 14:06 Physical Exam Vitals: Vital Signs Temp Pulse Pulse Resp BP BP Pulse Ox 03/20/19 08:00 98.4 F 58 L 18 138/70 97 03/20/19 04:00 98.7 F 60 18 112/55 99 03/20/19 00:00 59 L 18 109/56 96 03/19/19 20:35 98.4 F 72 18 136/74 97 03/19/19 20:26 99.7 F H 60 18 94/51 100 03/19/19 19:20 98.1 F 64 17 101/65 99 03/19/19 18:12 99.1 F 70 18 115/70 97 03/19/19 16:00 99.4 F 63 16 111/54 97 03/19/19 15:01 101.1 F H 74 18 146/76 100 03/19/19 14:06 98.2 F 86 18 152/77 100 Intake and Output 03/19/19 03/20/19 03/20/19 22:59 06:59 14:59 Other: Voiding Method Toilet Toilet # Voids 2 0 Weight 75.7 kg PHYSICAL EXAMINATION: GENERAL: The patient is alert and oriented x3, not in any acute distress. Well developed, well nourished. HEENT: Pupils are round and equally reacting to light. EOMI. No scleral icterus. No conjunctival pallor. Normocephalic, atraumatic. No pharyngeal erythema. No thyromegaly. CARDIOVASCULAR: S1 and S2 present. No murmurs, rubs, or gallops. PULMONARY: Chest is clear to auscultation, no wheezing or crackles. ABDOMEN: Patient does have right CVA tenderness which is mild of which apparently as per the patient's significant improved now. Patient does have good bowel sounds no other the organomegaly was appreciated clinically. MUSCULOSKELETAL: No joint swelling or deformity. EXTREMITIES: No cyanosis, clubbing, or pedal edema. NEUROLOGICAL: Gross neurological examination did not reveal any focal deficits. SKIN: No rashes. Results CBC & Chem 7: 03/20/19 05:31 03/20/19 05:31 Labs: Abnormal Lab Results - Last 24 Hours (Table) 03/19/19 03/19/19 03/19/19 Range/Units 14:35 14:35 14:35 WBC 13.2 H (3.8-10.6) k/uL RBC (3.80-5.40) m/uL Hgb (11.4-16.0) gm/dL Hct 33.5 L (34.0-46.0) % RDW 15.6 H (11.5-15.5) % Neutrophils # 10.6 H (1.3-7.7) k/uL Chloride (98-107) mmol/L BUN 23 H (7-17) mg/dL Creatinine 1.33 H (0.52-1.04) mg/dL Glucose 169 H (74-99) mg/dL POC Glucose (mg/dL) (75-99) mg/dL Plasma Lactic Acid Juan Francisco (0.7-2.0) mmol/L Calcium 10.7 H (8.4-10.2) mg/dL Total Protein 8.8 H (6.3-8.2) g/dL Urine Appearance Turbid H (Clear) Urine Protein 3+ H (Negative) Urine Blood Small H (Negative) Ur Leukocyte Esterase Large H (Negative) Urine RBC 33 H (0-5) /hpf Urine WBC >182 H (0-5) /hpf Urine WBC Clumps Many H (None) /hpf Urine Bacteria Occasional H (None) /hpf Urine Mucus Few H (None) /hpf 03/19/19 03/20/19 03/20/19 Range/Units 14:35 05:31 05:31 WBC (3.8-10.6) k/uL RBC 2.95 L (3.80-5.40) m/uL Hgb 8.6 L D (11.4-16.0) gm/dL Hct 25.2 L (34.0-46.0) % RDW (11.5-15.5) % Neutrophils # (1.3-7.7) k/uL Chloride 108 H (98-107) mmol/L BUN 23 H (7-17) mg/dL Creatinine 1.20 H (0.52-1.04) mg/dL Glucose 106 H (74-99) mg/dL POC Glucose (mg/dL) (75-99) mg/dL Plasma Lactic Acid Juan Francisco 2.7 H* (0.7-2.0) mmol/L Calcium (8.4-10.2) mg/dL Total Protein (6.3-8.2) g/dL Urine Appearance (Clear) Urine Protein (Negative) Urine Blood (Negative) Ur Leukocyte Esterase (Negative) Urine RBC (0-5) /hpf Urine WBC (0-5) /hpf Urine WBC Clumps (None) /hpf Urine Bacteria (None) /hpf Urine Mucus (None) /hpf 03/20/19 03/20/19 Range/Units 06:02 11:40 WBC (3.8-10.6) k/uL RBC (3.80-5.40) m/uL Hgb (11.4-16.0) gm/dL Hct (34.0-46.0) % RDW (11.5-15.5) % Neutrophils # (1.3-7.7) k/uL Chloride (98-107) mmol/L BUN (7-17) mg/dL Creatinine (0.52-1.04) mg/dL Glucose (74-99) mg/dL POC Glucose (mg/dL) 107 H 141 H (75-99) mg/dL Plasma Lactic Acid Juan Francisco (0.7-2.0) mmol/L Calcium (8.4-10.2) mg/dL Total Protein (6.3-8.2) g/dL Urine Appearance (Clear) Urine Protein (Negative) Urine Blood (Negative) Ur Leukocyte Esterase (Negative) Urine RBC (0-5) /hpf Urine WBC (0-5) /hpf Urine WBC Clumps (None) /hpf Urine Bacteria (None) /hpf Urine Mucus (None) /hpf Microbiology - Last 24 Hours (Table) 03/19/19 14:35 Urine Culture - Preliminary Urine,Voided Thrombosis Risk Factor Assmnt - Choose All That Apply Each Factor Represents 1 point: Age 41-60 years Thrombosis Risk Factor Assessment Total Risk Factor Score: 1 Thrombosis Risk Factor Assessment Level: Low Risk Assessment and Plan Plan: -Sepsis possibly secondary to urinary tract infection and pyelonephritis patient appears to have ureteral obstruction because of which neurology was consulted. Blood cultures and urine cultures are pending. Patient has been taking nitrof urantoin at home because of this reason I do not expect blood cultures and urine cultures to be positive. We'll empirically current treatment with the Rocephin at this time. -Acute renal failure multifactorial mostly due to prerenal azotemia from nausea vomiting patient was started on IV fluids for this and the there is a possibility of ureteral obstruction as mentioned above, which neurology was consulted. Nephrotoxic agents are being held -Type 2 diabetes mellitus: Metformin is being held and patient will be on sliding scale insulin -Right-sided hydronephrosis for which urology was consulted History of asthma without any Admission --Hyperlipidemia. DVT prophylaxis early ambulation and GI prophylaxis with Protonix.
--- NOTE | 2019-03-20 15:11 | P.GSCN ---
History of Present Illness Consult date: 03/20/19 Reason for Consult: Right-sided hydronephrosis History of present illness: Ms. Martínez is 53 yo female that is admitted to the hospital with pyelonephritis. Patient had a CT of the abdomen and pelvis which showed right-sided hydronephrosis, the point of obstructions appears to be at the iliac stent. Of note the patient underwent an iliac artery stenting at [facility] about 3 weeks ago. Today on evaluation she denies any flank pain she indicates her fevers and chills have resolved. Denies any known history of hydronephrosis. She indicates she does have chronic UTIs, unsure if she had a febrile UTI before. Denies any voiding symptoms at baseline Review of Systems - Constitutional Reports chills, Reports fever - Respiratory Denies cough, Denies dyspnea - Gastrointestinal Denies abdominal pain - Genitourinary Genitourinary: Denies dysuria, Denies hematuria - Neurological Denies headaches, Denies weakness Past Medical History Past Medical History: Asthma, Cancer, Diabetes Mellitus, Hyperlipidemia, Hypertension Additional Past Medical History / Comment(s): cervical CA, glaucoma (both eyes). pt has hypertrophic cardiomyopathy, pacemaker end of january, Taver jan 2019, right iliac stent jan 2019 History of Any Multi-Drug Resistant Organisms: None Reported Past Surgical History: Heart Catheterization, Hysterectomy Additional Past Surgical History / Comment(s): cyst removed rt wrist. surgery- septum of heart shaved down and scar tissue removed. EZEKIEL Past Anesthesia/Blood Transfusion Reactions: No Reported Reaction Past Psychological History: No Psychological Hx Reported Smoking Status: Never smoker Past Alcohol Use History: None Reported Past Drug Use History: None Reported - Past Family History Father Family Medical History: Myocardial Infarction ([place]) Mother Family Medical History: AFIB, Cancer Additional Family Medical History / Comment(s): unknown type of CA Medications and Allergies Home Medications Medication Instructions Recorded Confirmed Type Cetirizine HCl [Zyrtec] 10 mg PO HS 01/23/14 03/19/19 History Dorzolamide HCl/Timolol Maleat 1 drop BOTH EYES BID 01/23/14 03/19/19 History [Cosopt Eye Drops] Omeprazole [PriLOSEC] 20 mg PO DAILY 01/23/14 03/19/19 History Salmeterol Xinafoate [Serevent 1 puff INHALATION RT-BID PRN 01/23/14 03/19/19 History Diskus] glyBURIDE/METFORMIN HCL 1 tab PO BID 01/23/14 03/19/19 History [Glucovance 5-500 mg Tablet] Ergocalciferol [Vitamin D2 50,000 unit PO FR 07/22/17 03/19/19 History (DRISDOL)] Rosuvastatin Calcium [Crestor] 10 mg PO Q48H 07/22/17 03/19/19 History amLODIPine [Norvasc] 10 mg PO DAILY 07/22/17 03/19/19 History Magnesium Oxide 400 mg PO BID 08/22/18 03/19/19 History Vit C/E/Zn/Coppr/Lutein/Zeaxan 1 cap PO BID 08/22/18 03/19/19 History [Preservision Areds 2 Softgel] hydrALAZINE HCL [Apresoline] 25 mg PO BID #60 tab 08/25/18 03/19/19 Rx Furosemide [Lasix] 20 mg PO DAILY 10/09/18 03/19/19 History Aspirin EC [Ecotrin Low Dose] 81 mg PO DAILY 03/19/19 03/19/19 History Clopidogrel Bisulfate [Plavix] 75 mg PO DAILY 03/19/19 03/19/19 History Cranberry 4200mg 2 tab PO BID 03/19/19 03/19/19 History Lisinopril [Zestril] 2.5 mg PO DAILY 03/19/19 03/19/19 History Metoprolol Tartrate [Lopressor] 12.5 mg PO BID 03/19/19 03/19/19 History Allergies Allergy/AdvReac Type Severity Reaction Status Date / Time fluticasone propionate Allergy Unknown Verified 03/19/19 14:06 [From Flovent Diskus] methocarbamol [From Robaxin] Allergy Unknown Verified 03/19/19 14:06 Milk Containing Products Allergy Abdominal Verified 03/19/19 14:06 Pain Penicillins Allergy Unknown Verified 03/19/19 14:06 Surgical - Exam Vital Signs Temp Pulse Resp BP Pulse Ox 98.2 F 86 18 152/77 100 03/19/19 14:06 03/19/19 14:06 03/19/19 14:06 03/19/19 14:06 03/19/19 14:06 - General well developed, well nourished, no distress, no pain - ENT normal mucosa, no hearing loss - Respiratory normal expansion, normal respiratory effort - Abdomen Abdomen: no tender (right flank) - Psychiatric oriented to time, oriented to person, oriented to place Results - Labs 03/20/19 05:31 03/20/19 05:31 Abnormal Lab Results - Last 24 Hours (Table) 03/19/19 03/19/19 03/19/19 Range/Units 14:35 14:35 14:35 WBC 13.2 H (3.8-10.6) k/uL RBC (3.80-5.40) m/uL Hgb (11.4-16.0) gm/dL Hct 33.5 L (34.0-46.0) % RDW 15.6 H (11.5-15.5) % Neutrophils # 10.6 H (1.3-7.7) k/uL Chloride (98-107) mmol/L BUN 23 H (7-17) mg/dL Creatinine 1.33 H (0.52-1.04) mg/dL Glucose 169 H (74-99) mg/dL POC Glucose (mg/dL) (75-99) mg/dL Plasma Lactic Acid Juan Francisco (0.7-2.0) mmol/L Calcium 10.7 H (8.4-10.2) mg/dL Total Protein 8.8 H (6.3-8.2) g/dL Urine Appearance Turbid H (Clear) Urine Protein 3+ H (Negative) Urine Blood Small H (Negative) Ur Leukocyte Esterase Large H (Negative) Urine RBC 33 H (0-5) /hpf Urine WBC >182 H (0-5) /hpf Urine WBC Clumps Many H (None) /hpf Urine Bacteria Occasional H (None) /hpf Urine Mucus Few H (None) /hpf 03/19/19 03/20/19 03/20/19 Range/Units 14:35 05:31 05:31 WBC (3.8-10.6) k/uL RBC 2.95 L (3.80-5.40) m/uL Hgb 8.6 L D (11.4-16.0) gm/dL Hct 25.2 L (34.0-46.0) % RDW (11.5-15.5) % Neutrophils # (1.3-7.7) k/uL Chloride 108 H (98-107) mmol/L BUN 23 H (7-17) mg/dL Creatinine 1.20 H (0.52-1.04) mg/dL Glucose 106 H (74-99) mg/dL POC Glucose (mg/dL) (75-99) mg/dL Plasma Lactic Acid Juan Francisco 2.7 H* (0.7-2.0) mmol/L Calcium (8.4-10.2) mg/dL Total Protein (6.3-8.2) g/dL Urine Appearance (Clear) Urine Protein (Negative) Urine Blood (Negative) Ur Leukocyte Esterase (Negative) Urine RBC (0-5) /hpf Urine WBC (0-5) /hpf Urine WBC Clumps (None) /hpf Urine Bacteria (None) /hpf Urine Mucus (None) /hpf 03/20/19 03/20/19 Range/Units 06:02 11:40 WBC (3.8-10.6) k/uL RBC (3.80-5.40) m/uL Hgb (11.4-16.0) gm/dL Hct (34.0-46.0) % RDW (11.5-15.5) % Neutrophils # (1.3-7.7) k/uL Chloride (98-107) mmol/L BUN (7-17) mg/dL Creatinine (0.52-1.04) mg/dL Glucose (74-99) mg/dL POC Glucose (mg/dL) 107 H 141 H (75-99) mg/dL Plasma Lactic Acid Juan Francisco (0.7-2.0) mmol/L Calcium (8.4-10.2) mg/dL Total Protein (6.3-8.2) g/dL Urine Appearance (Clear) Urine Protein (Negative) Urine Blood (Negative) Ur Leukocyte Esterase (Negative) Urine RBC (0-5) /hpf Urine WBC (0-5) /hpf Urine WBC Clumps (None) /hpf Urine Bacteria (None) /hpf Urine Mucus (None) /hpf Microbiology - Last 24 Hours (Table) 03/19/19 14:35 Urine Culture - Preliminary Urine,Voided Diabetes panel 03/19/19 03/20/19 Range/Units 14:35 05:31 Sodium 139 139 (137-145) mmol/L Potassium 4.4 4.1 (3.5-5.1) mmol/L Chloride 102 108 H (98-107) mmol/L Carbon Dioxide 22 24 (22-30) mmol/L BUN 23 H 23 H (7-17) mg/dL Creatinine 1.33 H 1.20 H (0.52-1.04) mg/dL Glucose 169 H 106 H (74-99) mg/dL Calcium 10.7 H 9.3 (8.4-10.2) mg/dL AST 24 (14-36) U/L ALT 16 (9-52) U/L Alkaline Phosphatase 101 (38-126) U/L Total Protein 8.8 H (6.3-8.2) g/dL Albumin 4.6 (3.5-5.0) g/dL Calcium panel 03/19/19 03/20/19 Range/Units 14:35 05:31 Calcium 10.7 H 9.3 (8.4-10.2) mg/dL Albumin 4.6 (3.5-5.0) g/dL Pituitary panel 03/19/19 03/20/19 Range/Units 14:35 05:31 Sodium 139 139 (137-145) mmol/L Potassium 4.4 4.1 (3.5-5.1) mmol/L Chloride 102 108 H (98-107) mmol/L Carbon Dioxide 22 24 (22-30) mmol/L BUN 23 H 23 H (7-17) mg/dL Creatinine 1.33 H 1.20 H (0.52-1.04) mg/dL Glucose 169 H 106 H (74-99) mg/dL Calcium 10.7 H 9.3 (8.4-10.2) mg/dL Adrenal panel 03/19/19 03/20/19 Range/Units 14:35 05:31 Sodium 139 139 (137-145) mmol/L Potassium 4.4 4.1 (3.5-5.1) mmol/L Chloride 102 108 H (98-107) mmol/L Carbon Dioxide 22 24 (22-30) mmol/L BUN 23 H 23 H (7-17) mg/dL Creatinine 1.33 H 1.20 H (0.52-1.04) mg/dL Glucose 169 H 106 H (74-99) mg/dL Calcium 10.7 H 9.3 (8.4-10.2) mg/dL Total Bilirubin 0.8 (0.2-1.3) mg/dL AST 24 (14-36) U/L ALT 16 (9-52) U/L Alkaline Phosphatase 101 (38-126) U/L Total Protein 8.8 H (6.3-8.2) g/dL Albumin 4.6 (3.5-5.0) g/dL - Imaging CT scan - abdomen: image reviewed (Mild Right-sided hydronephrosis, the point of obstructions appears to be an the level of the iliac stent) Assessment and Plan Assessment: Ms. martínez is a 53-year-old female admitted to the hospital with a pyelonephritis. She underwent a CAT scan that showed mild right-sided hydronephrosis. She underwent right iliac stent placement at [facility] in late January. This a.m. patient's vital signs are stable, she is afebrile her creatinine is trending down, she has no leukocytosis her symptoms have resolved Plan: -I discussed with her given her recent vascular surgery, attempted retrograde stent placement could be risky secondary to possible erosion into the iliac graft. I discussed this with the patient and discussed with her the risk of ure teral vascular fistula as a complication of stent placement. At this time I do not recommend her to undergo stent placement given that her symptoms have resolved and her clinicals course has improved with antibiotics. If her clinical course worsens then I would recommend that she undergoes a right nephrostomy tube placement, at this time this is not indicated. -Follow up on urine cultures, antibiotics recommendation based on susceptibility -She can follow-up as an outpatient in 2 weeks, she will need a renal bladder ultrasound in 3-4 weeks to assess of the resolution of hydronephrosis Time with Patient: Greater than 30
[2019-03-20 17:02] LABS: Glucose,Whole Blood 265 mg/dL (75-99)
[2019-03-20 20:28] LABS: Glucose,Whole Blood 200 mg/dL (75-99)
[2019-03-21 06:18] LABS: Glucose,Whole Blood 136 mg/dL (75-99)
[2019-03-21] MEDS: PANTOPRAZOLE 40 MG TABLET PO SCH (06:42)
[2019-03-21 07:23] LABS: Calcium 9.4 mg/dL (8.4-10.2); Magnesium 1.6 mg/dL (1.6-2.3); Potassium 4.5 mmol/L (3.5-5.1)
[2019-03-21] MEDS ORDERED: ATORVASTATIN 20 MG TAB PO SCH (09:00)
[2019-03-21] MEDS: METOPROLOL TARTRATE 12.5 MG TAB PO SCH ×2 (09:05→20:29)
[2019-03-21] MEDS: CLOPIDOGREL 75 MG TAB PO SCH (09:06)
[2019-03-21] MEDS: amLODIPine 10 MG TAB PO SCH (09:06)
[2019-03-21] MEDS: ASPIRIN 81 MG PO SCH (09:06)
[2019-03-21] MEDS: DORZOLAMIDE-TIMOLOL 2.23%/0.68 10ML BTL BOTH EYES SCH ×2 (09:14→20:29)
--- NOTE | 2019-03-21 09:17 | P.PN ---
Subjective Progress Note Date: 03/21/19 The patient was seen by Dr. Perez for right-sided hydronephrosis. This is probably due to edema from the right iliac artery stenting. He had a lengthy discussion about stent placement. It was his advice to not place a stent. Inflated the hydronephrosis will subside and nothing further will need to be done. He will see the patient in 2-3 weeks with a follow-up ultrasound. If the hydronephrosis persists he'll consider nephrostomy tube and further evaluation. The patient has no further questions and understands the plan of action. She's been instructed to contact our office for a follow-up appointment upon discharge. Objective - Vital Signs Vital signs: Vital Signs Temp 99.4 F 03/20/19 23:00 Pulse 60 03/21/19 00:00 Resp 16 03/21/19 00:00 BP 127/72 03/20/19 23:00 Pulse Ox 97 03/20/19 23:00 Intake & Output 03/20/19 03/21/19 03/21/19 18:59 06:59 18:59 Intake Total 120 720 Output Total 850 Balance 120 -130 Intake: Intake, IV Titration 600 Amount Sodium Chloride 0.9% 1, 600 000 ml @ 50 mls/hr IV . Q20H [facility] Rx#:[id number] Oral 120 120 Output: Urine 850 Other: Voiding Method Toilet # Voids 1 1 - Labs CBC & Chem 7: 03/20/19 05:31 03/21/19 06:04 Labs: Abnormal Lab Results - Last 24 Hours (Table) 03/20/19 03/20/19 03/20/19 Range/Units 11:40 16:42 20:27 Chloride (98-107) mmol/L BUN (7-17) mg/dL Creatinine (0.52-1.04) mg/dL Glucose (74-99) mg/dL POC Glucose (mg/dL) 141 H 265 H 200 H (75-99) mg/dL 03/21/19 03/21/19 Range/Units 06:04 06:17 Chloride 110 H (98-107) mmol/L BUN 18 H (7-17) mg/dL Creatinine 1.08 H (0.52-1.04) mg/dL Glucose 130 H (74-99) mg/dL POC Glucose (mg/dL) 136 H (75-99) mg/dL Microbiology - Last 24 Hours (Table) 03/19/19 14:35 Urine Culture - Preliminary Urine,Voided Gram Neg Bacilli 03/19/19 18:03 Blood Culture - Preliminary Blood No Growth after 24 hours
--- NOTE | 2019-03-21 09:31 | P.PN ---
Subjective Patient is seen in follow-up for acute kidney injury. Renal function is better. Creatinine 1.08 today. Denies chest pain or shortness of breath. Urine output is good. Denies nausea or vomiting. Vital signs are stable. General: The patient appeared well nourished and normally developed. HEENT: Head exam is unremarkable. Neck is without jugular venous distension. LUNGS: Lungs are clear to auscultation and percussion. Breath sounds decreased. HEART: Rate and Rhythm are regular. First and second heart sounds normal. No murmurs, rubs or gallops. ABDOMEN: Abdominal exam reveals normal bowel sounds. Non-tender and non- distended. No evidence of peritonitis. EXTREMITITES: No clubbing, cyanosis, or edema. Objective - Vital Signs Vital signs: Vital Signs Temp 99.4 F 03/20/19 23:00 Pulse 60 03/21/19 00:00 Resp 16 03/21/19 00:00 BP 127/72 03/20/19 23:00 Pulse Ox 97 03/20/19 23:00 Intake & Output 03/20/19 03/21/19 03/21/19 18:59 06:59 18:59 Intake Total 120 720 Output Total 850 Balance 120 -130 Intake: Intake, IV Titration 600 Amount Sodium Chloride 0.9% 1, 600 000 ml @ 50 mls/hr IV . Q20H [facility] Rx#:[id number] Oral 120 120 Output: Urine 850 Other: Voiding Method Toilet # Voids 1 1 - Labs CBC & Chem 7: 03/20/19 05:31 03/21/19 06:04 Labs: Abnormal Lab Results - Last 24 Hours (Table) 03/20/19 03/20/19 03/20/19 Range/Units 11:40 16:42 20:27 Chloride (98-107) mmol/L BUN (7-17) mg/dL Creatinine (0.52-1.04) mg/dL Glucose (74-99) mg/dL POC Glucose (mg/dL) 141 H 265 H 200 H (75-99) mg/dL 03/21/19 03/21/19 Range/Units 06:04 06:17 Chloride 110 H (98-107) mmol/L BUN 18 H (7-17) mg/dL Creatinine 1.08 H (0.52-1.04) mg/dL Glucose 130 H (74-99) mg/dL POC Glucose (mg/dL) 136 H (75-99) mg/dL Microbiology - Last 24 Hours (Table) 03/19/19 14:35 Urine Culture - Preliminary Urine,Voided Gram Neg Bacilli 03/19/19 18:03 Blood Culture - Preliminary Blood No Growth after 24 hours Assessment and Plan Plan: Assessment: 1. Acute kidney injury mostly prerenal secondary to intravascular volume depletion from vomiting and diuretics. Creatinine 1.33 on admission and is 1.08 today. 2. Proteinuria. However patient also has a UTI. Will need to be further worked up outpatient. Etiology is most likely diabetic kidney disease. 3. Benign hypertension. Controlled. 4. History of frequent UTIs. Urine culture currently positive for gram- negative bacilli. Maintained on antibiotics. 5. Right-sided hydronephrosis. Urology following. No plans for intervention at this time. 6. Diabetes mellitus. Plan: Maintain normal saline at 50 mL an hour. Follow-up urine culture. Avoid nephrotoxins. Continue to hold lisinopril and Lasix for now. Repeat electrolytes in the morning. Replace magnesium. 2 g IV today.
--- NOTE | 2019-03-21 10:17 | P.DS ---
Providers Date of admission: 03/19/19 17:55 Attending physician: Fish Hensley Consults: 03/19/19 17:56 Consult Physician Urgent Consulting Provider: Gerald Perez Consult Reason/Comments: acute pyelonephritis with possible obstruction Do you want consulting provider notified?: Already Contacted 03/20/19 07:32 Consult Physician Urgent Consulting Provider: Jose Villa Consult Reason/Comments: raphael Do you want consulting provider notified?: Yes Primary care physician: Rubens Rivera [facility] Course: Patient is a pleasant 51-year-old the female came in with complaints of right flank pain, Dilantin tenderness nausea vomiting has been going on for last 3-4 days patient did have fever at home. Patient pain in the right flank is sharp in nature. Patient had a CAT scan of the abdomen and pelvis which showed pyelonephritis with possible obstruction in the right side and right ureteral area along with some possible cystitis. Urine is definitely abnormal does have leukocytosis although patient doesn't have any fever here patient had fever at home. Patient is found to be in acute renal failure with serum creatinine 1.30 came down to 1.2. Nephrology valid to the patient and urology was consulted for possible ureteral stent placement for hydronephrosis. Patient will be resumed on Rocephin. Will use 1 g of Rocephin because of acute renal failure patient is on lisinopril and metformin which are being held at this time because of acute renal failure. Patient was having nausea vomiting few episodes last 2-3 days and mostly nauseous. 03/21/2018 Patient is clinically doing well afebrile. I do not have any urine cultures and studies available yet. If negative urine cultures patient will be discharged today or ulceration minute postictal tomorrow. Patient was evaluated nephrology patient's renal function improved patient is a was on lisinopril and hydralazine which will be discontinued patient blood pressure is fairly stable and normal at this time with systolics in 120s and diastolics between 70-80. Urine cultures are showing greater than 100,000 gram-negative bacilli at this time. Urology is not recommending any stent placement at this time with hydronephrosis status post cystoscopy with with evaluate the patient as an outpatient nephrostomy is being recommended at that time patient had right-sided hydronephrosis. PHYSICAL EXAMINATION: GENERAL: The patient is alert and oriented x3, not in any acute distress. Well developed, well nourished. HEENT: Pupils are round and equally reacting to light. EOMI. No scleral icterus. No conjunctival pallor. Normocephalic, atraumatic. No pharyngeal erythema. No thyromegaly. CARDIOVASCULAR: S1 and S2 present. No murmurs, rubs, or gallops. PULMONARY: Chest is clear to auscultation, no wheezing or crackles. ABDOMEN: Soft, nontender, nondistended, normoactive bowel sounds. No palpable organomegaly. MUSCULOSKELETAL: No joint swelling or deformity. EXTREMITIES: No cyanosis, clubbing, or pedal edema. NEUROLOGICAL: Gross neurological examination did not reveal any focal deficits. SKIN: No rashes. Assessment and Plan Plan: -Sepsis possibly secondary to urinary tract infection and pyelonephritis patient does have hydronephrosis further management as mentioned above urology valid to the patient and probably well. Patient has a -Acute renal failure multifactorial mostly due to prerenal azotemia from nausea vomiting provided with IV fluids -Type 2 diabetes mellitus: her oral hypoglycemic agents are being resumed kidney function returned to normal -Right-sided hydronephrosis for which urology was consulted History of asthma without any exacerbation --Hyperlipidemia. Patient Condition at Discharge: Stable Plan - Discharge Summary Discharge Rx Participant: No New Discharge Prescriptions: New Cefuroxime Axetil [Ceftin] 500 mg PO BID 4 Days #8 tab Continue Dorzolamide HCl/Timolol Maleat [Cosopt Eye Drops] 1 drop BOTH EYES BID Cetirizine HCl [Zyrtec] 10 mg PO HS Salmeterol Xinafoate [Serevent Diskus] 1 puff INHALATION RT-BID PRN PRN Reason: Shortness Of Breath glyBURIDE/METFORMIN HCL [Glucovance 5-500 mg Tablet] 1 tab PO BID Omeprazole [PriLOSEC] 20 mg PO DAILY Ergocalciferol [Vitamin D2 (DRISDOL)] 50,000 unit PO FR amLODIPine [Norvasc] 10 mg PO DAILY Rosuvastatin Calcium [Crestor] 10 mg PO Q48H Magnesium Oxide 400 mg PO BID Vit C/E/Zn/Coppr/Lutein/Zeaxan [Preservision Areds 2 Softgel] 1 cap PO BID Furosemide [Lasix] 20 mg PO DAILY Cranberry 4200mg 2 tab PO BID Clopidogrel Bisulfate [Plavix] 75 mg PO DAILY Aspirin EC [Ecotrin Low Dose] 81 mg PO DAILY Metoprolol Tartrate [Lopressor] 12.5 mg PO BID Discontinued hydrALAZINE HCL [Apresoline] 25 mg PO BID #60 tab Lisinopril [Zestril] 2.5 mg PO DAILY Discharge Medication List Cetirizine HCl [Zyrtec] 10 mg PO HS 01/23/14 [History] Dorzolamide HCl/Timolol Maleat [Cosopt Eye Drops] 1 drop BOTH EYES BID 01/23/14 [History] Omeprazole [PriLOSEC] 20 mg PO DAILY 01/23/14 [History] Salmeterol Xinafoate [Serevent Diskus] 1 puff INHALATION RT-BID PRN 01/23/14 [History] glyBURIDE/METFORMIN HCL [Glucovance 5-500 mg Tablet] 1 tab PO BID 01/23/14 [History] Ergocalciferol [Vitamin D2 (DRISDOL)] 50,000 unit PO FR 07/22/17 [History] Rosuvastatin Calcium [Crestor] 10 mg PO Q48H 07/22/17 [History] amLODIPine [Norvasc] 10 mg PO DAILY 07/22/17 [History] Magnesium Oxide 400 mg PO BID 08/22/18 [History] Vit C/E/Zn/Coppr/Lutein/Zeaxan [Preservision Areds 2 Softgel] 1 cap PO BID 08/22/18 [History] Furosemide [Lasix] 20 mg PO DAILY 10/09/18 [History] Aspirin EC [Ecotrin Low Dose] 81 mg PO DAILY 03/19/19 [History] Clopidogrel Bisulfate [Plavix] 75 mg PO DAILY 03/19/19 [History] Cranberry 4200mg 2 tab PO BID 03/19/19 [History] Metoprolol Tartrate [Lopressor] 12.5 mg PO BID 03/19/19 [History] Cefuroxime Axetil [Ceftin] 500 mg PO BID 4 Days #8 tab 03/21/19 [Rx] Follow up Appointment(s)/Referral(s): Jaylen Art MD [Primary Care Provider] - 3 Days Gerald Perez MD [STAFF PHYSICIAN] - 2 Weeks Jose Villa DO [STAFF PHYSICIAN] - 1 Week
[2019-03-21] MEDS: MAGNESIUM SULFATE-D5W PMX 1 GM in DEXTROSE/WATER 1 100ML.BAG IVPB SCH ×2 (10:58→12:09)
[2019-03-21 12:13] LABS: Glucose,Whole Blood 173 mg/dL (75-99)
[2019-03-21 16:58] LABS: Glucose,Whole Blood 188 mg/dL (75-99)
[2019-03-21] MEDS: SODIUM CHLORIDE 0.9% 1,000 ML IV SCH (18:24)
[2019-03-21 20:36] LABS: Glucose,Whole Blood 183 mg/dL (75-99)
[2019-03-21 22:16] VITALS: BP 157/75; PULSE 66; RESP 18; TEMP 96.9
[2019-03-22] MEDS: PANTOPRAZOLE 40 MG TABLET PO SCH (06:10)
[2019-03-22 06:11] LABS: Glucose,Whole Blood 136 mg/dL (75-99)
[2019-03-22 08:40] LABS: Basophils % (A) 1 %; Eosinophils # (A) 0.3 k/uL (0-0.7); Eosinophils % (A) 6 %; HCT 27.7 % (34.0-46.0); HGB 9.4 gm/dL (11.4-16.0); Hypochromasia Slight; Lymphocytes # (A) 1.7 k/uL (1.0-4.8); Lymphocytes % (A) 29 %; MCH 28.7 pg (25.0-35.0); MCHC 33.8 g/dL (31.0-37.0); Mean Platelet Volume 6.1; Monocytes # (A) 0.3 k/uL (0-1.0); Monocytes % (A) 5 %; Neutrophils # (A) 3.4 k/uL (1.3-7.7); Neutrophils % (A) 58 %; Platelet Count 263 k/uL (150-450); Poikilocytosis Slight; RBC 3.26 m/uL (3.80-5.40); RDW 15.2 % (11.5-15.5); WBC 5.9 k/uL (3.8-10.6)
[2019-03-22 08:47] LABS: Calcium 9.9 mg/dL (8.4-10.2); Potassium 4.6 mmol/L (3.5-5.1)
[2019-03-22] MEDS: METOPROLOL TARTRATE 12.5 MG TAB PO SCH (09:18)
[2019-03-22] MEDS: ASPIRIN 81 MG PO SCH (09:19)
[2019-03-22] MEDS: CLOPIDOGREL 75 MG TAB PO SCH (09:19)
[2019-03-22] MEDS: amLODIPine 10 MG TAB PO SCH (09:19)
[2019-03-22] MEDS: DORZOLAMIDE-TIMOLOL 2.23%/0.68 10ML BTL BOTH EYES SCH (09:21)
--- NOTE | 2019-03-22 09:33 | P.DS ---
Providers Date of admission: 03/19/19 17:55 Attending physician: Fish Hensley Consults: 03/19/19 17:56 Consult Physician Urgent Consulting Provider: Gerald Perez Consult Reason/Comments: acute pyelonephritis with possible obstruction Do you want consulting provider notified?: Already Contacted 03/20/19 07:32 Consult Physician Urgent Consulting Provider: Jose Villa Consult Reason/Comments: raphael Do you want consulting provider notified?: Yes Primary care physician: Rubens Rivera [facility] Course: 51-year-old the female came in with complaints of right flank pain, Dilantin tenderness nausea vomiting has been going on for last 3-4 days patient did have fever at home. Patient pain in the right flank is sharp in nature. Patient had a CAT scan of the abdomen and pelvis which showed pyelonephritis with possible obstruction in the right side and right ureteral area along with some possible cystitis. Urine is definitely abnormal does have leukocytosis although patient doesn't have any fever here patient had fever at home. Patient is found to be in acute renal failure with serum creatinine 1.30 came down to 1.2. Nephrology valid to the patient and urology was consulted for possible ureteral stent placement for hydronephrosis. Patient will be resumed on Rocephin. Will use 1 g of Rocephin because of acute renal failure patient is on lisinopril and metformin which are being held at this time because of acute renal failure. Patient was having nausea vomiting few episodes last 2-3 days and mostly nauseous. 03/21/2018 Patient is clinically doing well afebrile. I do not have any urine cultures and studies available yet. If negative urine cultures patient will be discharged today or ulceration minute postictal tomorrow. Patient was evaluated nephrology patient's renal function improved patient is a was on lisinopril and hydralazine which will be discontinued patient blood pressure is fairly stable and normal at this time with systolics in 120s and diastolics between 70-80. Urine cultures are showing greater than 100,000 gram-negative bacilli at this time. Urology is not recommending any stent placement at this time with hydronephrosis status post cystoscopy with with evaluate the patient as an outpatient nephrostomy is being recommended at that time patient had right-sided hydronephrosis. 03/22/2018 Patient had E. coli and Klebsiella pneumonia on the urine cultures. One of these organisms is only intermediate susceptible for Ceftin because of which patient will be discharged on Cipro for 5 days. PHYSICAL EXAMINATION: GENERAL: The patient is alert and oriented x3, not in any acute distress. Well developed, well nourished. HEENT: Pupils are round and equally reacting to light. EOMI. No scleral icterus. No conjunctival pallor. Normocephalic, atraumatic. No pharyngeal erythema. No thyromegaly. CARDIOVASCULAR: S1 and S2 present. No murmurs, rubs, or gallops. PULMONARY: Chest is clear to auscultation, no wheezing or crackles. ABDOMEN: Soft, nontender, nondistended, normoactive bowel sounds. No palpable organomegaly. MUSCULOSKELETAL: No joint swelling or deformity. EXTREMITIES: No cyanosis, clubbing, or pedal edema. NEUROLOGICAL: Gross neurological examination did not reveal any focal deficits. SKIN: No rashes. Assessment and Plan Plan: -Sepsis possibly secondary to urinary tract infection and pyelonephritis patient does have hydronephrosis further management as mentioned above urology valid to the patient and probably well. Patient has a -Acute renal failure multifactorial mostly due to prerenal azotemia from nausea vomiting provided with IV fluids -Type 2 diabetes mellitus: her oral hypoglycemic agents are being resumed kidney function returned to normal -Right-sided hydronephrosis for which urology was consulted History of asthma without any exacerbation --Hyperlipidemia. Patient Condition at Discharge: Stable Plan - Discharge Summary Discharge Rx Participant: No New Discharge Prescriptions: New Ciprofloxacin HCl [Cipro] 500 mg PO Q12H 5 Days #10 tab Continue Dorzolamide HCl/Timolol Maleat [Cosopt Eye Drops] 1 drop BOTH EYES BID Cetirizine HCl [Zyrtec] 10 mg PO HS Salmeterol Xinafoate [Serevent Diskus] 1 puff INHALATION RT-BID PRN PRN Reason: Shortness Of Breath glyBURIDE/METFORMIN HCL [Glucovance 5-500 mg Tablet] 1 tab PO BID Omeprazole [PriLOSEC] 20 mg PO DAILY Ergocalciferol [Vitamin D2 (DRISDOL)] 50,000 unit PO FR amLODIPine [Norvasc] 10 mg PO DAILY Rosuvastatin Calcium [Crestor] 10 mg PO Q48H Magnesium Oxide 400 mg PO BID Vit C/E/Zn/Coppr/Lutein/Zeaxan [Preservision Areds 2 Softgel] 1 cap PO BID Furosemide [Lasix] 20 mg PO DAILY Cranberry 4200mg 2 tab PO BID Clopidogrel Bisulfate [Plavix] 75 mg PO DAILY Aspirin EC [Ecotrin Low Dose] 81 mg PO DAILY Metoprolol Tartrate [Lopressor] 12.5 mg PO BID Discontinued hydrALAZINE HCL [Apresoline] 25 mg PO BID #60 tab Lisinopril [Zestril] 2.5 mg PO DAILY Discharge Medication List Cetirizine HCl [Zyrtec] 10 mg PO HS 01/23/14 [History] Dorzolamide HCl/Timolol Maleat [Cosopt Eye Drops] 1 drop BOTH EYES BID 01/23/14 [History] Omeprazole [PriLOSEC] 20 mg PO DAILY 01/23/14 [History] Salmeterol Xinafoate [Serevent Diskus] 1 puff INHALATION RT-BID PRN 01/23/14 [History] glyBURIDE/METFORMIN HCL [Glucovance 5-500 mg Tablet] 1 tab PO BID 01/23/14 [History] Ergocalciferol [Vitamin D2 (DRISDOL)] 50,000 unit PO FR 07/22/17 [History] Rosuvastatin Calcium [Crestor] 10 mg PO Q48H 07/22/17 [History] amLODIPine [Norvasc] 10 mg PO DAILY 07/22/17 [History] Magnesium Oxide 400 mg PO BID 08/22/18 [History] Vit C/E/Zn/Coppr/Lutein/Zeaxan [Preservision Areds 2 Softgel] 1 cap PO BID 08/22/18 [History] Furosemide [Lasix] 20 mg PO DAILY 10/09/18 [History] Aspirin EC [Ecotrin Low Dose] 81 mg PO DAILY 03/19/19 [History] Clopidogrel Bisulfate [Plavix] 75 mg PO DAILY 03/19/19 [History] Cranberry 4200mg 2 tab PO BID 03/19/19 [History] Metoprolol Tartrate [Lopressor] 12.5 mg PO BID 03/19/19 [History] Ciprofloxacin HCl [Cipro] 500 mg PO Q12H 5 Days #10 tab 03/22/19 [Rx] Follow up Appointment(s)/Referral(s): Jaylen Art MD [Primary Care Provider] - 3 Days Gerald Perez MD [STAFF PHYSICIAN] - 2 Weeks Jose Villa DO [STAFF PHYSICIAN] - 1 Week Discharge Disposition: HOME SELF-CARE
--- NOTE | 2019-03-22 09:53 | P.PN ---
Subjective Patient is seen in follow-up for acute kidney injury. GFR is back to baseline. Creatinine 0.91 today. Denies chest pain or shortness of breath. Urine output is good. [place] somewhat nauseous this morning. No vomiting. Vital signs are stable. General: The patient appeared well nourished and normally developed. HEENT: Head exam is unremarkable. Neck is without jugular venous distension. LUNGS: Lungs are clear to auscultation and percussion. Breath sounds decreased. HEART: Rate and Rhythm are regular. First and second heart sounds normal. No murmurs, rubs or gallops. ABDOMEN: Abdominal exam reveals normal bowel sounds. Non-tender and non- distended. No evidence of peritonitis. EXTREMITITES: No clubbing, cyanosis, or edema. Objective - Vital Signs Vital signs: Vital Signs Temp 96.9 F L 03/21/19 22:15 Pulse 66 03/22/19 00:00 Resp 18 03/22/19 00:00 BP 157/75 03/21/19 22:15 Pulse Ox 97 03/21/19 22:15 Intake & Output 03/21/19 03/22/19 03/22/19 18:59 06:59 18:59 Intake Total 958 560 236 Output Total 200 1000 Balance 758 -440 236 Weight 73.5 kg Intake: Intake, IV Titration 200 Amount Sodium Chloride 0.9% 1, 200 000 ml @ 50 mls/hr IV . Q20H [facility] Rx#:[id number] Oral 958 360 236 Output: Urine 200 1000 Other: Voiding Method Toilet # Voids 1 400 - Labs CBC & Chem 7: 03/22/19 07:53 03/22/19 07:53 Labs: Abnormal Lab Results - Last 24 Hours (Table) 03/21/19 03/21/19 03/21/19 Range/Units 12:11 16:57 20:35 RBC (3.80-5.40) m/uL Hgb (11.4-16.0) gm/dL Hct (34.0-46.0) % Chloride (98-107) mmol/L Glucose (74-99) mg/dL POC Glucose (mg/dL) 173 H 188 H 183 H (75-99) mg/dL 03/22/19 03/22/19 03/22/19 Range/Units 06:10 07:53 07:53 RBC 3.26 L (3.80-5.40) m/uL Hgb 9.4 L (11.4-16.0) gm/dL Hct 27.7 L (34.0-46.0) % Chloride 108 H (98-107) mmol/L Glucose 153 H (74-99) mg/dL POC Glucose (mg/dL) 136 H (75-99) mg/dL Microbiology - Last 24 Hours (Table) 03/19/19 14:35 Urine Culture - Final Urine,Voided Escherichia coli Klebsiella pneumoniae 03/19/19 18:03 Blood Culture - Preliminary Blood No Growth after 48 hours Assessment and Plan Plan: Assessment: 1. Acute kidney injury mostly prerenal secondary to intravascular volume depletion from vomiting and diuretics. Creatinine 1.33 on admission and is 0.91 today. 2. Proteinuria. However patient also has a UTI. Will need to be further worked up outpatient. Etiology is most likely diabetic kidney disease. 3. Benign hypertension. Controlled. 4. History of frequent UTIs. Urine culture currently positive for Klebsiella and E. coli. Maintained on antibiotics. 5. Right-sided hydronephrosis. Urology following. No plans for intervention at this time. 6. Diabetes mellitus. Plan: Hep-Lock IV fluids. Encourage oral intake. Avoid nephrotoxins. Continue to hold lisinopril and Lasix for now. Repeat electrolytes in the morning. Anticipate discharge soon. Follow up outpatient in the next 2 weeks.
== END 2019-03-22 12:40 | disposition home or self-care (01) | DRG 872 ==
LOC: EC 14:05 → 3SCARD 17:55
PROVIDERS: ADMIT Internal Medicine; ATTEND Internal Medicine
DX: A41.51 Sepsis due to Escherichia coli [E. coli] (principal); I42.2 Other hypertrophic cardiomyopathy; N13.6 Pyonephrosis; N17.9 Acute kidney failure, unspecified; E11.29 Type 2 diabetes mellitus with other diabetic kidney complication; E78.5 Hyperlipidemia, unspecified; E86.9 Volume depletion, unspecified; I10 Essential (primary) hypertension; B96.1 Klebsiella pneumoniae [K. pneumoniae] as the cause of diseases classified elsewhere; J45.909 Unspecified asthma, uncomplicated; Z79.02 Long term (current) use of antithrombotics/antiplatelets; Z79.82 Long term (current) use of aspirin; Z79.899 Other long term (current) drug therapy; Z82.49 Family history of ischemic heart disease and other diseases of the circulatory system; Z85.41 Personal history of malignant neoplasm of cervix uteri; Z87.440 Personal history of urinary (tract) infections; Z90.710 Acquired absence of both cervix and uterus; Z95.0 Presence of cardiac pacemaker; H40.9 Unspecified glaucoma; Z88.0 Allergy status to penicillin; Z88.8 Allergy status to other drugs, medicaments and biological substances; Z79.84 Long term (current) use of oral hypoglycemic drugs
CPT/HCPCS: 36415; 74177; 80048; 80053; 81001; 83605; 83690; 83735; 85025; 87040; 87077; 87086; 87186; 93005; 96361; 96374; 96375; 99285

== ENCOUNTER → 2019-04-09 | Outpatient (CLI) | payer BC ==
[2019-04-09 12:00] LABS: HCT 32.9 % (34.0-46.0); HGB 11.4 gm/dL (11.4-16.0); MCH 29.1 pg (25.0-35.0); MCHC 34.7 g/dL (31.0-37.0); MCV 83.8 fL (80.0-100.0); Mean Platelet Volume 7.6; Platelet Count 212 k/uL (150-450); Poikilocytosis Slight; RBC 3.93 m/uL (3.80-5.40); WBC 6.3 k/uL (3.8-10.6)
[2019-04-09 15:37] LABS: Albumin 4.5 g/dL (3.80-4.90); Albumin/Globulin Ratio 1.67 (1.60-3.17); Anion Gap 8.9 mmol/L (4.00-12.00); Calcium 9.9 mg/dL (8.7-10.3); Carbon Dioxide 29.1 mmol/L (21.6-31.8); Chol/HDL Ratio 2.96; Globulin 2.7 g/dL (1.6-3.3); LDL Cholesterol,Calculated 53.8 mg/dL (0.0-131.0); Non-African American GFR(CKD) 63.8 (60.0-200.0); Potassium 4.5 mmol/L (3.5-5.5); Total Bilirubin 0.4 mg/dL (0.2-1.2); Total Protein 7.2 g/dL (6.2-8.2); VLDL Calculation 52.2 mg/dL (5.00-40.00)
== END | disposition home or self-care (01) ==
LOC: LABWHC1 11:09
PROVIDERS: ATTEND Internal Medicine Interventional Cardiology
DX: E78.2 Mixed hyperlipidemia (principal); Z95.2 Presence of prosthetic heart valve
CPT/HCPCS: 36415; 80053; 80061; 85027

== ENCOUNTER → 2019-04-24 | Outpatient (CLI) | payer BC ==
--- NOTE | 2019-04-24 10:19 | US ---
EXAMINATION TYPE: US kidneys/renal and bladder DATE OF EXAM: 04/24/2019 COMPARISON: CT March 19, 2019 CLINICAL HISTORY: R93.4 History of Hydronephrosis. History of hydron ephrosis EXAM MEASUREMENTS: Right Kidney: 12.5 x 4.6 x 4.0 cm Left Kidney: 11.1 x 5.4 x 4.0 cm Right Kidney: mild to moderate hydronephrosis Left Kidney: no evidence of hydronephrosis Bladder: appears wnl Bilateral Jets seen: yes There is persistent mild to moderate right-sided hydronephrosis. No left-sided hydronephrosis. No ne phrolithiasis is seen. No masses are identified. The urinary bladder is anechoic. Bilateral ureter al jets are seen. IMPRESSION: Persistent mild right-sided hydronephrosis. Prior CT showed hydroureter up to the mid ure ter level where there are surgical clips at the iliac bifurcation. Obstruction from scar tissue at th is level is thought likely present.
== END | disposition home or self-care (01) ==
LOC: RADUSWWP 09:39
PROVIDERS: ATTEND Urology
DX: N13.1 Hydronephrosis with ureteral stricture, not elsewhere classified (principal); Z98.890 Other specified postprocedural states
CPT/HCPCS: 76770

== ENCOUNTER → 2019-05-29 | Outpatient (CLI) | payer BC ==
[~2019-05-29] MED LIST changes: -ALPRAZolam 0.25 MG TAB PO PRN; -ALPRAZolam 0.5 MG TAB PO PRN; -ASPIRIN 325 MG TAB PO STA; -ATORVASTATIN 80 MG TAB PO STA; +FUROSEMIDE 10 MG/ML 2 ML VIAL IV ONE; -NITROGLYCERIN SL TABS 0.4 MG TAB SUBLINGUAL PRN; -SODIUM CHLORIDE 0.9% 1,000 ML IV ONE; -SODIUM CHLORIDE 0.9% 1,000 ML in EMPTY BAG 1 BAG IV ONE; -fentaNYL (PF) 50 MCG/ML 2 ML AMP IVP ONE
--- NOTE | 2019-05-29 15:25 | NM ---
EXAMINATION TYPE: NM lasix renogram DATE OF EXAM: 05/29/2019 COMPARISON: Renal ultrasound 04/24/2019 HISTORY: Hydronephrosis Following administration of 9.47 mCi Tc 99m MAG3 with 20mg Lasix. Immediate images post injection FINDINGS: Left: 44.4 %. Right: 55.6 %. Max renal flow left: 4 minutes. Max renal flow right: 55.6 minutes. Satisfactory accumulation of radiotracer within both renal collecting systems. After the administrati on of Lasix, there is prompt excretion from both collecting systems. Normal flow noted to the bilater al kidneys. T 1/2 left: 12 minutes. T 1/2 right: 13 minutes. IMPRESSION: Normal nuclear medicine Lasix renogram, split function shows mild asymmetry in uptake
== END | disposition home or self-care (01) ==
LOC: RADNMMAIN 13:50
PROVIDERS: ATTEND Urology
DX: Z09 Encounter for follow-up examination after completed treatment for conditions other than malignant neoplasm (principal); Z87.448 Personal history of other diseases of urinary system
CPT/HCPCS: 78708; A9562

== ENCOUNTER 2019-10-29 15:48 | Inpatient (IN) | payer BC ==
[2019-10-29] MEDS ORDERED: SODIUM CHLORIDE 0.9% 1,000 ML IV STA (16:14)
[2019-10-29] MEDS ORDERED: ACETAMINOPHEN TAB 500 MG TAB PO STA (16:14)
--- NOTE | 2019-10-29 16:18 | ED ---
Fever HPI - General Chief Complaint: Fever Stated Complaint: Nausea, dizzy, hyperglycemia Time Seen by Provider: 10/29/19 16:05 Source: patient, RN notes reviewed, old records reviewed Mode of arrival: ambulatory Limitations: no limitations - History of Present Illness Initial Comments: This is a 53-year-old female history diabetes a history of urinary tract infections who states over last couple days she is been feeling ill is generally not well she states she's had a fever for last 1-2 days she's had dizziness hyperglycemia with a sugar of 302 this morning. She states she's not had any polyuria or polydipsia he does state that she had nausea with some vomiting also she states that she had a urinary tract infection diagnosed 2 weeks ago she was on doxycycline for 5 days prior to this she did have a UTI in June of this year she was treated with Cipro that time. No dysuria no hematuria no flank pain reported at this time. No rhinorrhea no cough or earaches no other modifying factors at this time. MD Complaint: fever, malaise - Related Data Home Medications Medication Instructions Recorded Confirmed Cetirizine HCl [Zyrtec] 10 mg PO HS 01/23/14 03/19/19 Dorzolamide HCl/Timolol Maleat 1 drop BOTH EYES BID 01/23/14 03/19/19 [Cosopt Eye Drops] Omeprazole [PriLOSEC] 20 mg PO DAILY 01/23/14 03/19/19 Salmeterol Xinafoate [Serevent 1 puff INHALATION RT-BID PRN 01/23/14 03/19/19 Diskus] glyBURIDE/METFORMIN HCL 1 tab PO BID 01/23/14 03/19/19 [Glucovance 5-500 mg Tablet] Ergocalciferol [Vitamin D2 50,000 unit PO FR 07/22/17 03/19/19 (DRISDOL)] Rosuvastatin Calcium [Crestor] 10 mg PO Q48H 07/22/17 03/19/19 amLODIPine [Norvasc] 10 mg PO DAILY 07/22/17 03/19/19 Magnesium Oxide 400 mg PO BID 08/22/18 03/19/19 Vit C/E/Zn/Coppr/Lutein/Zeaxan 1 cap PO BID 08/22/18 03/19/19 [Preservision Areds 2 Softgel] Furosemide [Lasix] 20 mg PO DAILY 10/09/18 03/19/19 Aspirin EC [Ecotrin Low Dose] 81 mg PO DAILY 03/19/19 03/19/19 Clopidogrel Bisulfate [Plavix] 75 mg PO DAILY 03/19/19 03/19/19 Cranberry 4200mg 2 tab PO BID 03/19/19 03/19/19 Metoprolol Tartrate [Lopressor] 12.5 mg PO BID 03/19/19 03/19/19 Previous Rx's Medication Instructions Recorded Ciprofloxacin HCl [Cipro] 500 mg PO Q12H 5 Days #10 tab 03/22/19 Allergies Allergy/AdvReac Type Severity Reaction Status Date / Time fluticasone propionate Allergy Unknown Verified 10/29/19 15:58 [From Flovent Diskus] methocarbamol [From Robaxin] Allergy Unknown Verified 10/29/19 15:58 Milk Containing Products Allergy Abdominal Verified 10/29/19 15:58 Pain Penicillins Allergy Unknown Verified 10/29/19 15:58 Review of Systems ROS Statement: Those systems with pertinent positive or pertinent negative responses have been documented in the HPI. ROS Other: All systems not noted in ROS Statement are negative. Past Medical History Past Medical History: Asthma, Cancer, Diabetes Mellitus, Hyperlipidemia, Hypertension Additional Past Medical History / Comment(s): cervical CA, glaucoma (both eyes). pt has hypertrophic cardiomyopathy History of Any Multi-Drug Resistant Organisms: None Reported Past Surgical History: Heart Catheterization, Hysterectomy Additional Past Surgical History / Comment(s): cyst removed rt wrist. surgery- septum of heart shaved down and scar tissue removed. EZEKIEL Past Anesthesia/Blood Transfusion Reactions: No Reported Reaction Past Psychological History: No Psychological Hx Reported Smoking Status: Never smoker Past Alcohol Use History: None Reported Past Drug Use History: None Reported - Past Family History Father Family Medical History: Myocardial Infarction ([place]) Mother Family Medical History: AFIB, Cancer Additional Family Medical History / Comment(s): unknown type of CA General Exam - General Exam Comments Initial Comments: This is a well-developed well-nourished awake alert oriented 3 female Limitations: no limitations General appearance: alert, in no apparent distress Head exam: Present: atraumatic, normocephalic, normal inspection Eye exam: Present: normal appearance, PERRL, EOMI. Absent: scleral icterus, conjunctival injection, periorbital swelling ENT exam: Present: mucous membranes dry Neck exam: Present: normal inspection. Absent: tenderness, meningismus, lymphadenopathy Respiratory exam: Present: normal lung sounds bilaterally. Absent: respiratory distress, wheezes, rales, rhonchi, stridor Cardiovascular Exam: Present: regular rate, normal rhythm, normal heart sounds. Absent: systolic murmur, diastolic murmur, rubs, gallop, clicks GI/Abdominal exam: Present: soft, normal bowel sounds. Absent: distended, tenderness, guarding, rebound, rigid Extremities exam: Present: normal inspection, full ROM, normal capillary refill. Absent: tenderness, pedal edema, joint swelling, calf tenderness Back exam: Present: normal inspection Neurological exam: Present: alert, oriented X3, CN II-XII intact Psychiatric exam: Present: normal affect, normal mood Skin exam: Present: warm, dry, intact, normal color. Absent: rash Course Vital Signs 10/29/19 10/29/19 10/29/19 15:57 16:52 17:29 Temperature 103.5 F H 103.2 F H 102 F H Pulse Rate 86 84 84 Respiratory 20 16 16 Rate Blood Pressure 133/70 143/75 130/78 O2 Sat by Pulse 99 97 96 Oximetry Medical Decision Making - Medical Decision Making I did discuss findings with the patient as well as with Dr. Cho who did come to the emergency department see the patient she will be admitted for inpatient treatment urinary tract infection febrile illness as well as hyperglycemia and the hydration with renal insufficiency - Lab Data Result diagrams: 10/29/19 16:38 10/29/19 16:38 Lab Results 10/29/19 10/29/19 10/29/19 Range/Units 16:18 16:38 16:38 WBC 8.9 (3.8-10.6) k/uL RBC 4.35 (3.80-5.40) m/uL Hgb 12.7 (11.4-16.0) gm/dL Hct 38.3 (34.0-46.0) % MCV 87.9 (80.0-100.0) fL MCH 29.1 (25.0-35.0) pg MCHC 33.1 (31.0-37.0) g/dL RDW 13.6 (11.5-15.5) % Plt Count 139 L (150-450) k/uL Neutrophils % 86 % Lymphocytes % 7 % Monocytes % 5 % Eosinophils % 1 % Basophils % 0 % Neutrophils # 7.7 (1.3-7.7) k/uL Lymphocytes # 0.6 L (1.0-4.8) k/uL Monocytes # 0.5 (0-1.0) k/uL Eosinophils # 0.1 (0-0.7) k/uL Basophils # 0.0 (0-0.2) k/uL Sodium 134 L (137-145) mmol/L Potassium 4.1 (3.5-5.1) mmol/L Chloride 97 L (98-107) mmol/L Carbon Dioxide 24 (22-30) mmol/L Anion Gap 13 mmol/L BUN 29 H (7-17) mg/dL Creatinine 1.10 H (0.52-1.04) mg/dL Est GFR (CKD-EPI)AfAm 66 (>60 ml/min/1.73 sqM) Est GFR (CKD-EPI)NonAf 57 (>60 ml/min/1.73 sqM) Glucose 301 H (74-99) mg/dL POC Glucose (mg/dL) 287 H (75-99) mg/dL POC Glu [employer] Feeder [employer]cher ID Salima Silva Plasma Lactic Acid Juan Francisco (0.7-2.0) mmol/L Calcium 10.1 (8.4-10.2) mg/dL Magnesium 1.8 (1.6-2.3) mg/dL Total Bilirubin 1.0 (0.2-1.3) mg/dL AST 29 (14-36) U/L ALT 27 (4-34) U/L Alkaline Phosphatase 86 (38-126) U/L Total Protein 8.1 (6.3-8.2) g/dL Albumin 4.7 (3.5-5.0) g/dL Urine Color Urine Appearance (Clear) Urine pH (5.0-8.0) Ur Specific Alexander (1.001-1.035) Urine Protein (Negative) Urine Glucose (UA) (Negative) Urine Ketones (Negative) Urine Blood (Negative) Urine Nitrite (Negative) Urine Bilirubin (Negative) Urine Urobilinogen (<2.0) mg/dL Ur Leukocyte Esterase (Negative) Urine RBC (0-5) /hpf Urine WBC (0-5) /hpf Ur Squamous Epith Cells (0-4) /hpf Urine Bacteria (None) /hpf Urine Mucus (None) /hpf Acetone, Qual Negative (Negative) 10/29/19 10/29/19 Range/Units 16:38 17:25 WBC (3.8-10.6) k/uL RBC (3.80-5.40) m/uL Hgb (11.4-16.0) gm/dL Hct (34.0-46.0) % MCV (80.0-100.0) fL MCH (25.0-35.0) pg MCHC (31.0-37.0) g/dL RDW (11.5-15.5) % Plt Count (150-450) k/uL Neutrophils % % Lymphocytes % % Monocytes % % Eosinophils % % Basophils % % Neutrophils # (1.3-7.7) k/uL Lymphocytes # (1.0-4.8) k/uL Monocytes # (0-1.0) k/uL Eosinophils # (0-0.7) k/uL Basophils # (0-0.2) k/uL Sodium (137-145) mmol/L Potassium (3.5-5.1) mmol/L Chloride (98-107) mmol/L Carbon Dioxide (22-30) mmol/L Anion Gap mmol/L BUN (7-17) mg/dL Creatinine (0.52-1.04) mg/dL Est GFR (CKD-EPI)AfAm (>60 ml/min/1.73 sqM) Est GFR (CKD-EPI)NonAf (>60 ml/min/1.73 sqM) Glucose (74-99) mg/dL POC Glucose (mg/dL) (75-99) mg/dL POC Glu Tobacco Feeder Catcher ID Plasma Lactic Acid Juan Francisco 2.9 H* (0.7-2.0) mmol/L Calcium (8.4-10.2) mg/dL Magnesium (1.6-2.3) mg/dL Total Bilirubin (0.2-1.3) mg/dL AST (14-36) U/L ALT (4-34) U/L Alkaline Phosphatase (38-126) U/L Total Protein (6.3-8.2) g/dL Albumin (3.5-5.0) g/dL Urine Color Yellow Urine Appearance Cloudy H (Clear) Urine pH 6.0 (5.0-8.0) Ur Specific Alexander 1.014 (1.001-1.035) Urine Protein 2+ H (Negative) Urine Glucose (UA) Negative (Negative) Urine Ketones Negative (Negative) Urine Blood Negative (Negative) Urine Nitrite Negative (Negative) Urine Bilirubin Negative (Negative) Urine Urobilinogen <2.0 (<2.0) mg/dL Ur Leukocyte Esterase Large H (Negative) Urine RBC 2 (0-5) /hpf Urine WBC 45 H (0-5) /hpf Ur Squamous Epith Cells 1 (0-4) /hpf Urine Bacteria Many H (None) /hpf Urine Mucus Rare H (None) /hpf Acetone, Qual (Negative) - Radiology Data Radiology results: report reviewed, image reviewed Disposition Clinical Impression: Febrile illness, acute, Urinary tract infection, Hyperglycemia, Renal insufficiency Disposition: ADMITTED IP TO THIS [facility] Condition: Fair Referrals: Jaylen Art MD [Primary Care Provider] - 1-2 days
[2019-10-29 16:19] LABS: Glucose,Whole Blood 287 mg/dL (75-99)
[2019-10-29 16:45] LABS: Basophils % (A) 0 %; Eosinophils # (A) 0.1 k/uL (0-0.7); Eosinophils % (A) 1 %; HCT 38.3 % (34.0-46.0); HGB 12.7 gm/dL (11.4-16.0); Lymphocytes # (A) 0.6 k/uL (1.0-4.8); Lymphocytes % (A) 7 %; MCH 29.1 pg (25.0-35.0); MCHC 33.1 g/dL (31.0-37.0); MCV 87.9 fL (80.0-100.0); Mean Platelet Volume 8.3; Monocytes # (A) 0.5 k/uL (0-1.0); Monocytes % (A) 5 %; Neutrophils # (A) 7.7 k/uL (1.3-7.7); Neutrophils % (A) 86 %; Platelet Count 139 k/uL (150-450); RBC 4.35 m/uL (3.80-5.40); RDW 13.6 % (11.5-15.5); WBC 8.9 k/uL (3.8-10.6)
--- NOTE | 2019-10-29 16:49 | XR ---
EXAMINATION TYPE: XR chest 2V DATE OF EXAM: 10/29/2019 COMPARISON: 08/22/2018 HISTORY: Shortness of breath TECHNIQUE: Frontal and lateral views of the chest are obtained. FINDINGS: Dual-lead pacemaker with distal leads within the right atrium and right ventricle respectively. No pn eumothorax seen. Scattered senescent parenchymal changes noted. Hyperinflation compatible with COPD. No evidence for infiltrate. No evidence for atelectasis. Heart size is stable. Mediastinal structures are stable and grossly unremarkable. No evidence for hilar prominence. Degenerative changes dorsal spine. IMPRESSION: 1. No evidence for acute pulmonary disease.
[2019-10-29 16:55] LABS: ALT 27 U/L (4-34); AST 29 U/L (14-36); African American GFR (CKD) 66 (>60 ml/min/1.73 sqM); Albumin 4.7 g/dL (3.5-5.0); Alkaline Phosphatase 86 U/L (38-126); Anion Gap 13 mmol/L; Blood Urea Nitrogen 29 mg/dL (7-17); Calcium 10.1 mg/dL (8.4-10.2); Carbon Dioxide 24 mmol/L (22-30); Chloride 97 mmol/L (98-107); Glucose 301 mg/dL (74-99); Magnesium 1.8 mg/dL (1.6-2.3); Non-African American GFR(CKD) 57 (>60 ml/min/1.73 sqM); Potassium 4.1 mmol/L (3.5-5.1); Sodium 134 mmol/L (137-145); Total Protein 8.1 g/dL (6.3-8.2)
[2019-10-29 17:46] LABS: Appearance,Urine Cloudy (Clear); Bacteria,Urine Many /hpf; Bilirubin,Urine Negative (Negative); Blood,Urine Negative (Negative); Color,Urine Yellow; Glucose,Urine (UA) Negative (Negative); Ketones,Urine Negative (Negative); Leukocyte Esterase,Urine Large (Negative); Mucus,Urine Rare /hpf; Nitrite,Urine Negative (Negative); Protein,Urine 2+ (Negative); RBC,Urine 2 /hpf (0-5); Specific Gravity,Urine 1.014 (1.001-1.035); Squamous Epithelial Cell,Urine 1 /hpf (0-4); Urobilinogen,Urine <2.0 mg/dL (<2.0); WBC,Urine 45 /hpf (0-5)
[2019-10-29] MEDS ORDERED: cefTRIAXone IN SWFI 1,000 MG/10 ML SYRINGE IVP STA (17:56)
[2019-10-29] MEDS ORDERED: ONDANSETRON 4 MG/2 ML VIAL IVP PRN (17:59)
[2019-10-29] MEDS ORDERED: NALOXONE 0.4 MG/ML 1 ML VIAL IV PRN (17:59)
--- NOTE | 2019-10-29 17:59 | ED ---
Medical Decision Making - Lab Data Result diagrams: 10/29/19 16:38 10/29/19 16:38 Lab Results 10/29/19 10/29/19 10/29/19 Range/Units 16:18 16:38 16:38 WBC 8.9 (3.8-10.6) k/uL RBC 4.35 (3.80-5.40) m/uL Hgb 12.7 (11.4-16.0) gm/dL Hct 38.3 (34.0-46.0) % MCV 87.9 (80.0-100.0) fL MCH 29.1 (25.0-35.0) pg MCHC 33.1 (31.0-37.0) g/dL RDW 13.6 (11.5-15.5) % Plt Count 139 L (150-450) k/uL Neutrophils % 86 % Lymphocytes % 7 % Monocytes % 5 % Eosinophils % 1 % Basophils % 0 % Neutrophils # 7.7 (1.3-7.7) k/uL Lymphocytes # 0.6 L (1.0-4.8) k/uL Monocytes # 0.5 (0-1.0) k/uL Eosinophils # 0.1 (0-0.7) k/uL Basophils # 0.0 (0-0.2) k/uL Sodium 134 L (137-145) mmol/L Potassium 4.1 (3.5-5.1) mmol/L Chloride 97 L (98-107) mmol/L Carbon Dioxide 24 (22-30) mmol/L Anion Gap 13 mmol/L BUN 29 H (7-17) mg/dL Creatinine 1.10 H (0.52-1.04) mg/dL Est GFR (CKD-EPI)AfAm 66 (>60 ml/min/1.73 sqM) Est GFR (CKD-EPI)NonAf 57 (>60 ml/min/1.73 sqM) Glucose 301 H (74-99) mg/dL POC Glucose (mg/dL) 287 H (75-99) mg/dL POC Glu Super[employer] ID Salima Silva Plasma Lactic Acid Juan Francisco (0.7-2.0) mmol/L Calcium 10.1 (8.4-10.2) mg/dL Magnesium 1.8 (1.6-2.3) mg/dL Total Bilirubin 1.0 (0.2-1.3) mg/dL AST 29 (14-36) U/L ALT 27 (4-34) U/L Alkaline Phosphatase 86 (38-126) U/L Total Protein 8.1 (6.3-8.2) g/dL Albumin 4.7 (3.5-5.0) g/dL Urine Color Urine Appearance (Clear) Urine pH (5.0-8.0) Ur Specific Adams (1.001-1.035) Urine Protein (Negative) Urine Glucose (UA) (Negative) Urine Ketones (Negative) Urine Blood (Negative) Urine Nitrite (Negative) Urine Bilirubin (Negative) Urine Urobilinogen (<2.0) mg/dL Ur Leukocyte Esterase (Negative) Urine RBC (0-5) /hpf Urine WBC (0-5) /hpf Ur Squamous Epith Cells (0-4) /hpf Urine Bacteria (None) /hpf Urine Mucus (None) /hpf Acetone, Qual Negative (Negative) 10/29/19 10/29/19 Range/Units 16:38 17:25 WBC (3.8-10.6) k/uL RBC (3.80-5.40) m/uL Hgb (11.4-16.0) gm/dL Hct (34.0-46.0) % MCV (80.0-100.0) fL MCH (25.0-35.0) pg MCHC (31.0-37.0) g/dL RDW (11.5-15.5) % Plt Count (150-450) k/uL Neutrophils % % Lymphocytes % % Monocytes % % Eosinophils % % Basophils % % Neutrophils # (1.3-7.7) k/uL Lymphocytes # (1.0-4.8) k/uL Monocytes # (0-1.0) k/uL Eosinophils # (0-0.7) k/uL Basophils # (0-0.2) k/uL Sodium (137-145) mmol/L Potassium (3.5-5.1) mmol/L Chloride (98-107) mmol/L Carbon Dioxide (22-30) mmol/L Anion Gap mmol/L BUN (7-17) mg/dL Creatinine (0.52-1.04) mg/dL Est GFR (CKD-EPI)AfAm (>60 ml/min/1.73 sqM) Est GFR (CKD-EPI)NonAf (>60 ml/min/1.73 sqM) Glucose (74-99) mg/dL POC Glucose (mg/dL) (75-99) mg/dL POC Glu Supervisor [employer] ID Plasma Lactic Acid Juan Francisco 2.9 H* (0.7-2.0) mmol/L Calcium (8.4-10.2) mg/dL Magnesium (1.6-2.3) mg/dL Total Bilirubin (0.2-1.3) mg/dL AST (14-36) U/L ALT (4-34) U/L Alkaline Phosphatase (38-126) U/L Total Protein (6.3-8.2) g/dL Albumin (3.5-5.0) g/dL Urine Color Yellow Urine Appearance Cloudy H (Clear) Urine pH 6.0 (5.0-8.0) Ur Specific Adams 1.014 (1.001-1.035) Urine Protein 2+ H (Negative) Urine Glucose (UA) Negative (Negative) Urine Ketones Negative (Negative) Urine Blood Negative (Negative) Urine Nitrite Negative (Negative) Urine Bilirubin Negative (Negative) Urine Urobilinogen <2.0 (<2.0) mg/dL Ur Leukocyte Esterase Large H (Negative) Urine RBC 2 (0-5) /hpf Urine WBC 45 H (0-5) /hpf Ur Squamous Epith Cells 1 (0-4) /hpf Urine Bacteria Many H (None) /hpf Urine Mucus Rare H (None) /hpf Acetone, Qual (Negative) Disposition Clinical Impression: Febrile illness, acute, Urinary tract infection, Hyperglycemia, Renal insufficiency, Lactic acidosis Disposition: ADMITTED IP TO THIS [facility] Condition: Fair Referrals: Jaylen Art MD [Primary Care Provider] - 1-2 days
[2019-10-29] MEDS ORDERED: SODIUM CHLORIDE 0.9% 1,000 ML IV SCH (18:00)
[2019-10-29] MEDS ORDERED: FORMOTEROL FUMARATE 20 MCG/2 ML NEBU INHALATION PRN (18:02)
--- NOTE | 2019-10-29 18:21 | P.HPIM ---
History of Present Illness Patient is a pleasant 53-year-old the female came in with compensative fever chills generalized body aches started about couple days ago. Patient denied any cough chest x-ray did not show any pneumonia patient was recently treated for urinary tract infection as per the patient patient as per the medical records was treated for kidney stones and UTI month of February at that time patient had jugular pneumonia in the E. coli with which are both sensitive to Rocephin. Patient denied any UTI symptoms at this time denied any dysuria denied any suprapubic pain her only symptoms of nausea vomiting. Patient blood sugars are elevated as well to up to 300 patient uses metformin and glyburide. Patient does have elevated lactic acid of 2.2 patient had high-grade fever above 101. Review of Systems REVIEW OF SYSTEMS: CONSTITUTIONAL: As mentioned in HPI HEENT: No recent visual problems or hearing problems. Denied any sore throat. CARDIOVASCULAR: No chest pain, orthopnea, PND, no palpitations, no syncope. PULMONARY: No shortness of breath, no cough, no hemoptysis. GASTROINTESTINAL: No diarrhea, no abdominal pain. NEUROLOGICAL: No headaches, no weakness, no numbness. HEMATOLOGICAL: Denies any bleeding or petechiae. GENITOURINARY: Denies any burning micturition, frequency, or urgency. MUSCULOSKELETAL/RHEUMATOLOGICAL: Denies any joint pain, swelling, or any muscle pain. ENDOCRINE: Denies any polyuria or polydipsia. The rest of the 14-point review of systems is negative. Past Medical History Past Medical History: Asthma, Cancer, Diabetes Mellitus, Hyperlipidemia, Hypertension Additional Past Medical History / Comment(s): cervical CA, glaucoma (both eyes). pt has hypertrophic cardiomyopathy History of Any Multi-Drug Resistant Organisms: None Reported Past Surgical History: Heart Catheterization, Hysterectomy Additional Past Surgical History / Comment(s): cyst removed rt wrist. surgery- septum of heart shaved down and scar tissue removed. EZEKIEL Past Anesthesia/Blood Transfusion Reactions: No Reported Reaction Past Psychological History: No Psychological Hx Reported Smoking Status: Never smoker Past Alcohol Use History: None Reported Past Drug Use History: None Reported - Past Family History Father Family Medical History: Myocardial Infarction ([place]) Mother Family Medical History: AFIB, Cancer Additional Family Medical History / Comment(s): unknown type of CA Medications and Allergies Home Medications Medication Instructions Recorded Confirmed Type Cetirizine HCl [Zyrtec] 10 mg PO HS 01/23/14 03/19/19 History Dorzolamide HCl/Timolol Maleat 1 drop BOTH EYES BID 01/23/14 03/19/19 History [Cosopt Eye Drops] Omeprazole [PriLOSEC] 20 mg PO DAILY 01/23/14 03/19/19 History Salmeterol Xinafoate [Serevent 1 puff INHALATION RT-BID PRN 01/23/14 03/19/19 History Diskus] glyBURIDE/METFORMIN HCL 1 tab PO BID 01/23/14 03/19/19 History [Glucovance 5-500 mg Tablet] Ergocalciferol [Vitamin D2 50,000 unit PO FR 07/22/17 03/19/19 History (DRISDOL)] Rosuvastatin Calcium [Crestor] 10 mg PO Q48H 07/22/17 03/19/19 History amLODIPine [Norvasc] 10 mg PO DAILY 07/22/17 03/19/19 History Magnesium Oxide 400 mg PO BID 08/22/18 03/19/19 History Vit C/E/Zn/Coppr/Lutein/Zeaxan 1 cap PO BID 08/22/18 03/19/19 History [Preservision Areds 2 Softgel] Furosemide [Lasix] 20 mg PO DAILY 10/09/18 03/19/19 History Aspirin EC [Ecotrin Low Dose] 81 mg PO DAILY 03/19/19 03/19/19 History Clopidogrel Bisulfate [Plavix] 75 mg PO DAILY 03/19/19 03/19/19 History Cranberry 4200mg 2 tab PO BID 03/19/19 03/19/19 History Metoprolol Tartrate [Lopressor] 12.5 mg PO BID 03/19/19 03/19/19 History Ciprofloxacin HCl [Cipro] 500 mg PO Q12H 5 Days #10 tab 03/22/19 Rx Allergies Allergy/AdvReac Type Severity Reaction Status Date / Time fluticasone propionate Allergy Unknown Verified 10/29/19 15:58 [From Flovent Diskus] methocarbamol [From Robaxin] Allergy Unknown Verified 10/29/19 15:58 Milk Containing Products Allergy Abdominal Verified 10/29/19 15:58 Pain Penicillins Allergy Unknown Verified 10/29/19 15:58 Physical Exam Vitals: Vital Signs Temp Pulse Resp BP Pulse Ox 10/29/19 17:29 102 F H 84 16 130/78 96 10/29/19 16:52 103.2 F H 84 16 143/75 97 10/29/19 15:57 103.5 F H 86 20 133/70 99 Intake and Output 10/29/19 10/29/19 10/29/19 06:59 14:59 22:59 Other: Weight 76.204 kg PHYSICAL EXAMINATION: GENERAL: The patient is alert and oriented x3, not in any acute distress. Well developed, well nourished. HEENT: Pupils are round and equally reacting to light. EOMI. No scleral icterus. No conjunctival pallor. Normocephalic, atraumatic. No pharyngeal erythema. No thyromegaly. CARDIOVASCULAR: S1 and S2 present. No murmurs, rubs, or gallops. PULMONARY: Chest is clear to auscultation, no wheezing or crackles. ABDOMEN: Soft, nontender, nondistended, normoactive bowel sounds. No palpable organomegaly. MUSCULOSKELETAL: No joint swelling or deformity. EXTREMITIES: No cyanosis, clubbing, or pedal edema. NEUROLOGICAL: Gross neurological examination did not reveal any focal deficits. SKIN: No rashes. Results CBC & Chem 7: 10/29/19 16:38 10/29/19 16:38 Labs: Abnormal Lab Results - Last 24 Hours (Table) 10/29/19 10/29/19 10/29/19 Range/Units 16:18 16:38 16:38 Plt Count 139 L (150-450) k/uL Lymphocytes # 0.6 L (1.0-4.8) k/uL Sodium 134 L (137-145) mmol/L Chloride 97 L (98-107) mmol/L BUN 29 H (7-17) mg/dL Creatinine 1.10 H (0.52-1.04) mg/dL Glucose 301 H (74-99) mg/dL POC Glucose (mg/dL) 287 H (75-99) mg/dL Plasma Lactic Acid Juan Francisco (0.7-2.0) mmol/L Urine Appearance (Clear) Urine Protein (Negative) Ur Leukocyte Esterase (Negative) Urine WBC (0-5) /hpf Urine Bacteria (None) /hpf Urine Mucus (None) /hpf 10/29/19 10/29/19 Range/Units 16:38 17:25 Plt Count (150-450) k/uL Lymphocytes # (1.0-4.8) k/uL Sodium (137-145) mmol/L Chloride (98-107) mmol/L BUN (7-17) mg/dL Creatinine (0.52-1.04) mg/dL Glucose (74-99) mg/dL POC Glucose (mg/dL) (75-99) mg/dL Plasma Lactic Acid Juan Francisco 2.9 H* (0.7-2.0) mmol/L Urine Appearance Cloudy H (Clear) Urine Protein 2+ H (Negative) Ur Leukocyte Esterase Large H (Negative) Urine WBC 45 H (0-5) /hpf Urine Bacteria Many H (None) /hpf Urine Mucus Rare H (None) /hpf Assessment and Plan Plan: -Sepsis probably secondary to urinary tract infection urine is significantly abnormal no other source of infection is evident at this time. Patient will be started on Rocephin. Patient doesn't have any signs or symptoms of pyelonephritis. Blood cultures and urine cultures were obtained -Acute renal failure secondary to nausea vomiting as well as infection , urinary tract infection. Patient will be started and continued on IV fluids will hold off on Lasix. -Hyponatremia: Hypervolemic hyponatremia due to above-mentioned reasons -Hypoglycemia patient does have type 2 diabetes mellitus elevated blood sugars are secondary to probably infection patient the metformin will be held because of lactic acidosis patient was started on sliding scale insulin -Lactic acidosis can be secondary to sepsis or metformin and metformin will be held and patient probably is not a candidate for metformin -Hyperlipidemia -Hypertension: Continue with metoprolol cut down the dose of amlodipine because of concerns of sepsis-related hypotension DVT prophylaxis: Early ambulation, GI prophylaxis with Prilosec
[2019-10-29 20:51] LABS: Glucose,Whole Blood 269 mg/dL (75-99)
[2019-10-29] MEDS ORDERED: CRANBERRY 4200 MG PO SCH (21:00)
[2019-10-29] MEDS ORDERED: METFORMIN HCL PO SCH (21:00)
[2019-10-29] MEDS ORDERED: GLYBURIDE PO SCH (21:00)
[2019-10-29] MEDS: MAGNESIUM OXIDE 400 MG TAB PO SCH (21:37)
[2019-10-29] MEDS: METOPROLOL TARTRATE 12.5 MG TAB PO SCH (21:37)
[2019-10-29] MEDS: LORATADINE 10 MG TAB PO SCH (21:37)
[2019-10-29] MEDS: hydrALAZINE HCL 25 MG TAB PO SCH (21:37)
[2019-10-29] MEDS: APIXABAN 5 MG TAB PO SCH (21:37)
[2019-10-29] MEDS: INSULIN ASPART (NovoLOG) 100 UNIT/ML VIAL SQ SCH (21:38)
[2019-10-29] MEDS: VIT A,C & E-LUTEIN-MINERALS 1 EACH TAB PO SCH (21:38)
[2019-10-29] MEDS: SODIUM CHLORIDE 0.9% 1,000 ML IV SCH (21:39)
[2019-10-29] MEDS: DORZOLAMIDE-TIMOLOL 2.23%/0.68 10ML BTL BOTH EYES SCH (23:40)
[2019-10-29] MEDS: ACETAMINOPHEN TAB 325 MG TAB PO PRN (23:40)
[2019-10-30 07:20] LABS: Glucose,Whole Blood 260 mg/dL (75-99)
[2019-10-30] MEDS: INSULIN ASPART (NovoLOG) 100 UNIT/ML VIAL SQ SCH ×4 (07:39→21:14)
[2019-10-30] MEDS: hydrALAZINE HCL 25 MG TAB PO SCH ×2 (08:04→21:13)
[2019-10-30] MEDS: ERGOCALCIFEROL 50,000 UNIT CAP PO SCH (08:04)
[2019-10-30] MEDS: APIXABAN 5 MG TAB PO SCH ×2 (08:04→21:13)
[2019-10-30] MEDS: ALLOPURINOL 100 MG TAB PO SCH (08:05)
[2019-10-30] MEDS: DORZOLAMIDE-TIMOLOL 2.23%/0.68 10ML BTL BOTH EYES SCH ×2 (08:05→21:13)
[2019-10-30] MEDS: PANTOPRAZOLE 40 MG TABLET PO SCH (08:05)
[2019-10-30] MEDS: ATORVASTATIN 20 MG TAB PO SCH (08:06)
[2019-10-30] MEDS: MAGNESIUM OXIDE 400 MG TAB PO SCH ×2 (08:06→21:14)
[2019-10-30] MEDS: amLODIPine 5 MG TAB PO SCH (08:06)
[2019-10-30] MEDS: METOPROLOL TARTRATE 12.5 MG TAB PO SCH ×2 (08:07→21:13)
[2019-10-30] MEDS: VIT A,C & E-LUTEIN-MINERALS 1 EACH TAB PO SCH ×2 (08:07→21:14)
[2019-10-30] MEDS: ASPIRIN 81 MG PO SCH (08:07)
[2019-10-30] MEDS: SODIUM CHLORIDE 0.9% 1,000 ML IV SCH ×2 (08:12→17:18)
[2019-10-30] MEDS ORDERED: FUROSEMIDE 20 MG TAB PO SCH (09:00)
[2019-10-30] MEDS ORDERED: NON FORMULARY DRUG (Omeprazole [Prilosec] 20 MG) PO SCH (09:00)
[2019-10-30] MEDS ORDERED: CLOPIDOGREL 75 MG TAB PO SCH (09:00)
[2019-10-30] MEDS ORDERED: amLODIPine 5 MG TAB PO SCH (09:00)
[2019-10-30 10:08] LABS: Basophils % (A) 0 %; Eosinophils # (A) 0.1 k/uL (0-0.7); Eosinophils % (A) 1 %; HCT 33.2 % (34.0-46.0); HGB 10.6 gm/dL (11.4-16.0); Lymphocytes # (A) 1.1 k/uL (1.0-4.8); Lymphocytes % (A) 15 %; MCH 29.1 pg (25.0-35.0); MCHC 31.9 g/dL (31.0-37.0); MCV 91.1 fL (80.0-100.0); Mean Platelet Volume 8.5; Monocytes # (A) 0.4 k/uL (0-1.0); Monocytes % (A) 5 %; Neutrophils # (A) 5.6 k/uL (1.3-7.7); Neutrophils % (A) 77 %; Platelet Count 113 k/uL (150-450); RBC 3.64 m/uL (3.80-5.40); RDW 13.7 % (11.5-15.5); WBC 7.3 k/uL (3.8-10.6)
[2019-10-30 10:27] LABS: Calcium 9.2 mg/dL (8.4-10.2); Magnesium 1.8 mg/dL (1.6-2.3); Potassium 3.9 mmol/L (3.5-5.1)
[2019-10-30 11:34] LABS: Glucose,Whole Blood 209 mg/dL (75-99)
[2019-10-30] MEDS: ACETAMINOPHEN TAB 325 MG TAB PO PRN (12:24)
[2019-10-30 16:51] LABS: Glucose,Whole Blood 169 mg/dL (75-99)
[2019-10-30 20:38] LABS: Glucose,Whole Blood 257 mg/dL (75-99)
[2019-10-30] MEDS: LORATADINE 10 MG TAB PO SCH (21:18)
--- NOTE | 2019-10-30 21:30 | PN ---
PROGRESS NOTE DATE OF SERVICE: 10/30/2019 This 53-year-old woman who was admitted with fever, rigor, chills, and features of UTI is being closely monitored at this time. The hemoglobin is 10.7. Blood sugar is elevated. Urine culture showed gram-negative bacilli and blood culture grew out E coli. Infectious Disease has been consulted. PAST MEDICAL HISTORY: Reviewed. REVIEW OF SYSTEMS: CARDIOVASCULAR: No angina. RESPIRATORY: No asthma. GI: As mentioned earlier. GI: As mentioned earlier. CURRENT MEDICATIONS: Tylenol, zyloprim, Norvasc, Eliquis, aspirin, Lipitor, Rocephin 2 g, vitamin D2, Perforomist, Apresoline, NovoLog, Claritin, magnesium oxide, Lopressor, multivitamins, Narcan, Zofran, Protonix. PHYSICAL EXAM: Patient is alert, oriented x3. Pulse 63, blood pressure 127/75, respirations 16, temperature 98.4, T-max 100.2, pulse ox 97% on room air. HEENT: Conjunctivae normal. Oral mucosa moist. NECK: No jugular venous distention. No lymph node enlargement. CARDIOVASCULAR: S1, S2, muffled. No S3, no S4, RESPIRATORY: Diminished breath sounds at the bases. A few scattered rhonchi, no crackles. ABDOMEN: Soft, nontender. LEGS: No edema, no swelling. NERVOUS SYSTEM: No focal motor or sensory deficits. LAB STUDIES: WBC 7, hemoglobin 10.2, platelets 113, glucose noted. ASSESSMENT: 1. Acute urinary tract infection with sepsis with E coli. 2. Escherichia coli sepsis. 3. Anemia, normocytic anemia of chronic disease. 4. Thrombocytopenia. 5. History of asthma. 6. History of congestive heart failure. 7. History of diabetes type 2. 8. Hypertension. 9. Hyperlipidemia. 10.History of cervical cancer. 11.History of glaucoma. 12.History of hypertrophic cardiomyopathy. 13.History of cardiac catheterization. 14.History of EZEKIEL. 15.History of pacemaker implantation. 16.History of aortic valve replacement. 17.History of iliac stent, right leg. 18.Obesity with body mass index of 32. 19.FULL CODE. RECOMMENDATIONS AND DISCUSSION: In this 53-year-old woman who presented with multiple complex medical issues, we will monitor the patient closely, continue the current management, continue symptomatic treatment. I would also recommend repeat blood cultures. Continue the antibiotics and I would also recommend a CT scan of the abdomen and pelvis as well. Otherwise, I would also recommend a cardiac evaluation if the cultures are persistently positive. Otherwise, we will continue to monitor. Guarded prognosis. Further recommendations to follow. See orders for details. MMODL / IJN: [id number] /
[2019-10-31] MEDS: SODIUM CHLORIDE 0.9% 1,000 ML IV SCH ×2 (04:51→17:24)
[2019-10-31 07:11] LABS: Glucose,Whole Blood 197 mg/dL (75-99)
[2019-10-31] MEDS: IOPAMIDOL CONTRAST (ORAL USE) VIAL PO PRN ×2 (07:32→08:38)
[2019-10-31] MEDS: INSULIN ASPART (NovoLOG) 100 UNIT/ML VIAL SQ SCH ×4 (07:40→21:35)
--- NOTE | 2019-10-31 08:40 | P.CONS ---
History of Present Illness - Reason for Consult Consult date: 10/30/19 Gram-negative bacteremia Requesting physician: Alexandra Palumbo - Chief Complaint Fever 2 days - History of Present Illness Patient is a 53-year-old female with a past medical history significant for diabetes mellitus and recurrent UTIs apparently the patient did have a recent UTI that was treated with the doxycycline and a UTI in mind that was treated with Cipro patient to present to the hospital with fever rigors and chills for the last few days patient denies having any headache or URI symptoms patient denies having any chest pain or shortness of breath or cough denies any abdominal pain and some nausea but no vomiting no diarrhea no burning or frequency of urine and no flank pain in the center the patient was evaluated by the physician on arrival to the area the patient did have a fever of 103F patient chest x-ray was negative for any acute infiltrate patient had did have a positive UA patient did have blood culture drawn which in the positive with gram-negative bacilli that prompted this infection disease consultation patient currently being treated with Rocephin 2 g daily Review of Systems Positive point has been mentioned in the HPI rest of the systems are negative Past Medical History Past Medical History: Asthma, Cancer, Heart Failure, Diabetes Mellitus, Hyperlipidemia, Hypertension Additional Past Medical History / Comment(s): cervical CA, glaucoma (both eyes). pt has hypertrophic cardiomyopathy History of Any Multi-Drug Resistant Organisms: None Reported Past Surgical History: Heart Catheterization, Hysterectomy Additional Past Surgical History / Comment(s): cyst removed rt wrist. surgery- septum of heart shaved down and scar tissue removed. EZEKIEL. Open heart surgery 2006. Pacemaker placed February 20, 2019. Aortic Valve replacement 02/20/19. Iliac Stent right leg 02/12/19 Past Anesthesia/Blood Transfusion Reactions: No Reported Reaction Past Psychological History: No Psychological Hx Reported Smoking Status: Never smoker Past Alcohol Use History: None Reported Past Drug Use History: None Reported - Past Family History Father Family Medical History: Myocardial Infarction ([place]) Mother Family Medical History: AFIB, Cancer Additional Family Medical History / Comment(s): unknown type of CA Medications and Allergies Home Medications Medication Instructions Recorded Confirmed Type Cetirizine HCl [Zyrtec] 10 mg PO HS 01/23/14 10/29/19 History Dorzolamide HCl/Timolol Maleat 1 drop BOTH EYES BID 01/23/14 10/29/19 History [Cosopt Eye Drops] Omeprazole [PriLOSEC] 20 mg PO DAILY 01/23/14 10/29/19 History glyBURIDE/METFORMIN HCL 1 tab PO BID 01/23/14 10/29/19 History [Glucovance 5-500 mg Tablet] Ergocalciferol [Vitamin D2 50,000 unit PO TUFR 07/22/17 10/29/19 History (DRISDOL)] Rosuvastatin Calcium [Crestor] 10 mg PO Q48H 07/22/17 10/29/19 History amLODIPine [Norvasc] 10 mg PO DAILY 07/22/17 10/29/19 History Magnesium Oxide 400 mg PO BID 08/22/18 10/29/19 History Vit C/E/Zn/Coppr/Lutein/Zeaxan 1 cap PO BID 08/22/18 10/29/19 History [Preservision Areds 2 Softgel] Furosemide [Lasix] 20 mg PO DAILY 10/09/18 10/29/19 History Aspirin EC [Ecotrin Low Dose] 81 mg PO DAILY 03/19/19 10/29/19 History Cranberry 4200mg 2 tab PO BID 03/19/19 10/29/19 History Metoprolol Tartrate [Lopressor] 12.5 mg PO BID 03/19/19 10/29/19 History Allopurinol [Zyloprim] 100 mg PO DAILY 10/29/19 10/29/19 History Apixaban [Eliquis] 5 mg PO BID 10/29/19 10/29/19 History hydrALAZINE HCL 25 mg PO BID 10/29/19 10/29/19 History sitaGLIPtin PHOSPHATE [Januvia] 100 mg PO DAILY 10/29/19 10/29/19 History Allergies Allergy/AdvReac Type Severity Reaction Status Date / Time fluticasone propionate Allergy Unknown Verified 10/29/19 15:58 [From Flovent Diskus] methocarbamol [From Robaxin] Allergy Unknown Verified 10/29/19 15:58 Milk Containing Products Allergy Abdominal Verified 10/29/19 15:58 Pain Penicillins Allergy Unknown Verified 10/29/19 15:58 Physical Exam Vitals: Vital Signs Temp Pulse Pulse Resp BP BP Pulse Ox 10/30/19 11:59 100.2 F H 10/30/19 06:54 98.5 F 69 14 138/76 94 L 10/30/19 05:03 98.8 F 73 14 116/70 93 L 10/30/19 03:21 18 10/30/19 01:23 98.1 F 10/30/19 00:27 103.1 F H 90 18 139/67 95 10/29/19 23:38 102.8 F H 10/29/19 20:10 98.4 F 73 18 119/68 98 10/29/19 18:52 99.4 F 77 18 101/63 98 10/29/19 17:29 102 F H 84 16 130/78 96 10/29/19 16:52 103.2 F H 84 16 143/75 97 10/29/19 15:57 103.5 F H 86 20 133/70 99 Intake and Output 10/29/19 10/30/19 10/30/19 22:59 06:59 14:59 Intake Total 890 Output Total 150 Balance 740 Intake: Intake, IV Titration 890 Amount Sodium Chloride 0.9% 1, 890 000 ml @ 100 mls/hr IV . Q[facility]H [facility] Rx#:[id number] Output: Emesis 150 Other: # Voids 1 Weight 76.204 kg GENERAL DESCRIPTION: Middle-aged female lying in bed, no distress. No tachypnea or accessory muscle of respiration use. HEENT: Shows Pallor , no scleral icterus. Oral mucous membrane is dry. No pharyngeal erythema or thrush NECK: Trachea central, no thyromegaly. LUNGS: Unlabored breathing. Clear to auscultation anteriorly. No wheeze or crackle. HEART: S1, S2, regular rate and rhythm. No loud murmur ABDOMEN: Soft, no tenderness , guarding or rigidity, no organomegaly EXTREMITIES: No edema of feet. SKIN: No rash, no masses palpable. NEUROLOGICAL: The patient is awake, alert, oriented x3, mood and affect normal. Results CBC & Chem 7: 10/30/19 09:07 10/30/19 09:07 Labs: Abnormal Lab Results - Last 24 Hours (Table) 10/29/19 10/29/19 10/29/19 Range/Units 16:18 16:38 16:38 RBC (3.80-5.40) m/uL Hgb (11.4-16.0) gm/dL Hct (34.0-46.0) % Plt Count 139 L (150-450) k/uL Lymphocytes # 0.6 L (1.0-4.8) k/uL Sodium 134 L (137-145) mmol/L Chloride 97 L (98-107) mmol/L BUN 29 H (7-17) mg/dL Creatinine 1.10 H (0.52-1.04) mg/dL Glucose 301 H (74-99) mg/dL POC Glucose (mg/dL) 287 H (75-99) mg/dL Plasma Lactic Acid Juan Francisco (0.7-2.0) mmol/L Urine Appearance (Clear) Urine Protein (Negative) Ur Leukocyte Esterase (Negative) Urine WBC (0-5) /hpf Urine Bacteria (None) /hpf Urine Mucus (None) /hpf 10/29/19 10/29/19 10/29/19 Range/Units 16:38 17:25 20:49 RBC (3.80-5.40) m/uL Hgb (11.4-16.0) gm/dL Hct (34.0-46.0) % Plt Count (150-450) k/uL Lymphocytes # (1.0-4.8) k/uL Sodium (137-145) mmol/L Chloride (98-107) mmol/L BUN (7-17) mg/dL Creatinine (0.52-1.04) mg/dL Glucose (74-99) mg/dL POC Glucose (mg/dL) 269 H (75-99) mg/dL Plasma Lactic Acid Juan Francisco 2.9 H* (0.7-2.0) mmol/L Urine Appearance Cloudy H (Clear) Urine Protein 2+ H (Negative) Ur Leukocyte Esterase Large H (Negative) Urine WBC 45 H (0-5) /hpf Urine Bacteria Many H (None) /hpf Urine Mucus Rare H (None) /hpf 10/30/19 10/30/19 10/30/19 Range/Units 06:55 09:07 09:07 RBC 3.64 L (3.80-5.40) m/uL Hgb 10.6 L (11.4-16.0) gm/dL Hct 33.2 L (34.0-46.0) % Plt Count 113 L (150-450) k/uL Lymphocytes # (1.0-4.8) k/uL Sodium (137-145) mmol/L Chloride (98-107) mmol/L BUN 26 H (7-17) mg/dL Creatinine (0.52-1.04) mg/dL Glucose 270 H (74-99) mg/dL POC Glucose (mg/dL) 260 H (75-99) mg/dL Plasma Lactic Acid Juan Francisco (0.7-2.0) mmol/L Urine Appearance (Clear) Urine Protein (Negative) Ur Leukocyte Esterase (Negative) Urine WBC (0-5) /hpf Urine Bacteria (None) /hpf Urine Mucus (None) /hpf 10/30/19 Range/Units 11:22 RBC (3.80-5.40) m/uL Hgb (11.4-16.0) gm/dL Hct (34.0-46.0) % Plt Count (150-450) k/uL Lymphocytes # (1.0-4.8) k/uL Sodium (137-145) mmol/L Chloride (98-107) mmol/L BUN (7-17) mg/dL Creatinine (0.52-1.04) mg/dL Glucose (74-99) mg/dL POC Glucose (mg/dL) 209 H (75-99) mg/dL Plasma Lactic Acid Juan Francisco (0.7-2.0) mmol/L Urine Appearance (Clear) Urine Protein (Negative) Ur Leukocyte Esterase (Negative) Urine WBC (0-5) /hpf Urine Bacteria (None) /hpf Urine Mucus (None) /hpf Microbiology - Last 24 Hours (Table) 10/29/19 16:38 Blood Culture Gram Stain - Preliminary Blood 10/29/19 16:38 Blood Culture - Final Blood 10/29/19 17:25 Urine Culture - Preliminary Urine,Voided Assessment and Plan Assessment: 1- patient with gram-negative bacteremia source is likely urinary in this patient who did have a history of recurrent infection with a recent UTI that was treated with doxycycline eye drops and they do not have a good urinary penetration , we'll make sure no evidence of any structural abnormality of the kidneys 2-patient with a penicillin ALLERGY that would limit the number of antibiotic prescription to use (1) Gram-negative bacteremia Current Visit: Yes Status: Acute Code(s): R78.81 - BACTEREMIA SNOMED Code(s): 227900484294 (2) Pyelonephritis Current Visit: No Status: Acute Code(s): N12 - TUBULO-INTERSTITIAL NEPHRITIS, NOT SPCF ACUTE OR CHRONIC SNOMED Code(s): 83092480 Plan: 1- Rocephin 2 g IV piggyback daily to continue waiting for the culture finalized 2- CT abdominal pelvis to rule out any structural abnormality 3-IV fluids We will follow on clinical condition and cultures to further adjust medication if needed Thank you for this consultation will follow this patient with you Time with Patient: Greater than 30
[2019-10-31 09:25] LABS: Basophils % (A) 0 %; Eosinophils # (A) 0.2 k/uL (0-0.7); Eosinophils % (A) 3 %; HCT 33.9 % (34.0-46.0); HGB 11.2 gm/dL (11.4-16.0); Lymphocytes # (A) 1.3 k/uL (1.0-4.8); Lymphocytes % (A) 21 %; MCH 30.4 pg (25.0-35.0); MCHC 33.2 g/dL (31.0-37.0); MCV 91.6 fL (80.0-100.0); Monocytes # (A) 0.4 k/uL (0-1.0); Monocytes % (A) 6 %; Neutrophils # (A) 4.2 k/uL (1.3-7.7); Neutrophils % (A) 68 %; Platelet Count 107 k/uL (150-450); RDW 13.7 % (11.5-15.5); WBC 6.3 k/uL (3.8-10.6)
[2019-10-31 09:35] LABS: African American GFR (CKD) >90 (>60 ml/min/1.73 sqM); Anion Gap 8 mmol/L; Blood Urea Nitrogen 16 mg/dL (7-17); Calcium 9.5 mg/dL (8.4-10.2); Carbon Dioxide 23 mmol/L (22-30); Chloride 106 mmol/L (98-107); Glucose 194 mg/dL (74-99); Non-African American GFR(CKD) 82 (>60 ml/min/1.73 sqM); Sodium 137 mmol/L (137-145)
--- NOTE | 2019-10-31 10:37 | CT ---
EXAMINATION TYPE: CT abdomen pelvis wo con DATE OF EXAM: 10/31/2019 COMPARISON: 03/19/2019 INDICATION: UTI, Sepsis DLP: 885.6 mGycm, Automated exposure control for dose reduction was used. CONTRAST: 0 mL of Isovue 300. Study performed with Oral Contrast TECHNIQUE: Axial images were obtained from above the diaphragm to the pubic rami in the axial plane a t 5 mm thick sections. Reconstructed images are reviewed on the computer in the coronal plane. FINDINGS: Limited CT sections are obtained the lung bases. The lung bases are clear. CT ABDOMEN: Liver: Normal Spleen: Normal Pancreas: Normal Adrenal glands: Left adrenal gland has a 1.1 cm thickening of the posterior limb. Right adrenal gland appears normal. Gallbladder: Normal Kidneys: No masses are evident. There may be some mild right hydronephrosis and hydroureter. An obstr ucting renal or ureteral stone is not identified. No cysts are present. Aorta: Vascular calcification is within the aorta. There is a stent within the right iliac artery. Inferior vena cava: Normal. CT PELVIS: Loops of bowel within the abdomen and pelvis are normal. There are loops of bowel which are incom pletely distended or lack oral contrast limiting their evaluation. Appendix: Normal as visualized. Urinary bladder: Distended Genitourinary structures: Uterus and ovaries are not identified. Osseous structures: No suspicious lytic or sclerotic lesions. Sacroiliac joint degenerative changes a re present. Facet degenerative changes are present. Degenerative disc changes are within the lower south mbar spine . IMPRESSIONS: 1. Distended urinary bladder. There is some mild left hydronephrosis and hydroureter without an etio logy for obstruction. 2. 1.1 cm thickening of the left adrenal gland.
[2019-10-31] MEDS: LINAGLIPTIN 5 MG TABLET PO SCH (10:59)
[2019-10-31] MEDS: APIXABAN 5 MG TAB PO SCH ×2 (10:59→21:34)
[2019-10-31] MEDS: PANTOPRAZOLE 40 MG TABLET PO SCH (10:59)
[2019-10-31] MEDS: amLODIPine 5 MG TAB PO SCH (10:59)
[2019-10-31] MEDS: MAGNESIUM OXIDE 400 MG TAB PO SCH ×2 (11:00→21:36)
[2019-10-31] MEDS: hydrALAZINE HCL 25 MG TAB PO SCH ×2 (11:00→21:34)
[2019-10-31] MEDS: ASPIRIN 81 MG PO SCH (11:00)
[2019-10-31] MEDS: DORZOLAMIDE-TIMOLOL 2.23%/0.68 10ML BTL BOTH EYES SCH ×2 (11:00→21:34)
[2019-10-31] MEDS: METOPROLOL TARTRATE 12.5 MG TAB PO SCH ×2 (11:00→21:34)
[2019-10-31] MEDS: ALLOPURINOL 100 MG TAB PO SCH (11:00)
[2019-10-31] MEDS: VIT A,C & E-LUTEIN-MINERALS 1 EACH TAB PO SCH ×2 (11:01→21:34)
[2019-10-31 11:37] LABS: Glucose,Whole Blood 250 mg/dL (75-99)
[2019-10-31] MEDS ORDERED: FUROSEMIDE 10 MG/ML 2 ML VIAL IV ONE (12:38)
[2019-10-31 17:14] LABS: Glucose,Whole Blood 307 mg/dL (75-99)
[2019-10-31 20:33] LABS: Glucose,Whole Blood 345 mg/dL (75-99)
[2019-10-31] MEDS: LORATADINE 10 MG TAB PO SCH (21:34)
--- NOTE | 2019-10-31 21:51 | PN ---
PROGRESS NOTE DATE OF SERVICE: 10/31/2019 This 53-year-old woman was admitted with fever, rigors, chills, and features of UTI is being closely monitored. No chest pain. No palpitations. No fever. An abdominal and pelvis CAT scan was done which showed evidence of distended urinary bladder with mild left hydronephrosis and cm thickening of the left adrenal gland. No chest pain. No palpitations. No fever. PHYSICAL EXAMINATION: Alert and oriented x3. Pulse 67, blood pressure 120/60, respiration 18, temperature 97.9, pulse ox 94% on room air. HEENT: Conjunctivae normal. Oral mucosa moist. NECK: No jugular venous distention. No lymph node enlargement. CARDIOVASCULAR: S1, S2, muffled. No S3, no S4, RESPIRATORY: Diminished breath sounds at the bases. No rhonchi, no crackles. ABDOMEN: Soft, nontender. LEGS: No edema, no swelling. NERVOUS SYSTEM: No focal motor or sensory deficits. LABS: WBC 6, hemoglobin 7.2, platelets 107. Culture showed gram-negative bacilli and E coli. ASSESSMENT: 1. Acute urinary tract infection with sepsis present on admission with possibly E. coli. 2. Escherichia coli from the blood. 3. Anemia, normocytic anemia of chronic disease. 4. CT scan of abdomen showed distended urinary bladder and some mild left hydronephrosis, hydroureter. 5. Thrombocytopenia. 6. History of asthma. 7. History of congestive heart failure. 8. Diabetes mellitus type 2. 9. Hypertension. 10.Hyperlipidemia. 11.History of cervical cancer. 12.History of glaucoma. 13.History of hypertrophic cardiomyopathy. 14.Cardiac catheterization. 15.History of EZEKIEL. 16.History of pacemaker implantation. 17.History of aortic valve replacement. 18.History of iliac stent, right leg. 19.Obesity with body mass index of 32. 20.FULL CODE. RECOMMENDATIONS AND DISCUSSION: Continue current medications, management and symptomatic treatment. Otherwise, continue the antibiotics. Closely monitor with Infectious Disease. Guarded prognosis. Further recommendations to follow. Await final ID of the organisms. MMODL / IJN: [id number] / MTDD
--- NOTE | 2019-10-31 23:03 | PN ---
PROGRESS NOTE DATE OF SERVICE: 10/31/2019 REASON FOR FOLLOWUP: Urinary tract infection with gram-negative bacteremia. INTERVAL HISTORY: Patient is currently afebrile. The patient did have low sugar 100. No chest pain. No shortness of breath. No cough. No abdominal pain or diarrhea. On examination, blood pressure 128/69, pulse of 67. Temperature 97.9. She is 94% on room air. General description: The patient is a middle-aged female lying in bed in no distress. Respiratory system: Unlabored breathing. Clear to auscultation anteriorly. Heart S1, S2. Regular rate and rhythm. Abdomen soft, no tenderness. LABS: Hemoglobin 11.1, white count 6.3, creatinine 0.82. Urine with E coli. Blood culture with E coli. Repeat blood culture so far negative. CT did have with left perinephric edema. DIAGNOSTIC IMPRESSION AND PLAN: Patient with E coli bacteremia secondary to left-sided pyelonephritis. Urine showing a sensitive pathogen. Blood culture sensitivities pending. Patient is covered with cefepime 2 g daily to continue and monitor clinical course closely. MMODL / IJN: [id number] /
[2019-11-01] MEDS: SODIUM CHLORIDE 0.9% 1,000 ML IV SCH ×3 (01:41→21:40)
[2019-11-01 07:43] LABS: Glucose,Whole Blood 200 mg/dL (75-99)
[2019-11-01] MEDS: INSULIN ASPART (NovoLOG) 100 UNIT/ML VIAL SQ SCH ×4 (08:14→21:43)
[2019-11-01] MEDS: APIXABAN 5 MG TAB PO SCH ×2 (08:15→21:43)
[2019-11-01] MEDS: PANTOPRAZOLE 40 MG TABLET PO SCH (08:15)
[2019-11-01] MEDS: VIT A,C & E-LUTEIN-MINERALS 1 EACH TAB PO SCH ×2 (08:15→21:42)
[2019-11-01] MEDS: hydrALAZINE HCL 25 MG TAB PO SCH ×2 (08:15→21:42)
[2019-11-01] MEDS: MAGNESIUM OXIDE 400 MG TAB PO SCH ×2 (08:15→21:42)
[2019-11-01] MEDS: ASPIRIN 81 MG PO SCH (08:16)
[2019-11-01] MEDS: LINAGLIPTIN 5 MG TABLET PO SCH (08:16)
[2019-11-01] MEDS: ALLOPURINOL 100 MG TAB PO SCH (08:16)
[2019-11-01] MEDS: ATORVASTATIN 20 MG TAB PO SCH (08:16)
[2019-11-01] MEDS: amLODIPine 5 MG TAB PO SCH (08:16)
[2019-11-01] MEDS: METOPROLOL TARTRATE 12.5 MG TAB PO SCH ×2 (08:17→21:42)
[2019-11-01] MEDS: DORZOLAMIDE-TIMOLOL 2.23%/0.68 10ML BTL BOTH EYES SCH ×2 (08:17→21:42)
[2019-11-01 09:00] LABS: Basophils % (A) 0 %; Eosinophils # (A) 0.2 k/uL (0-0.7); Eosinophils % (A) 5 %; HGB 11.2 gm/dL (11.4-16.0); Lymphocytes # (A) 1.4 k/uL (1.0-4.8); Lymphocytes % (A) 29 %; MCH 30.8 pg (25.0-35.0); MCV 90.5 fL (80.0-100.0); Mean Platelet Volume 8.8; Monocytes # (A) 0.4 k/uL (0-1.0); Monocytes % (A) 7 %; Neutrophils # (A) 2.8 k/uL (1.3-7.7); Neutrophils % (A) 56 %; Platelet Count 135 k/uL (150-450); RBC 3.64 m/uL (3.80-5.40); RDW 13.4 % (11.5-15.5)
[2019-11-01 09:16] LABS: Potassium 4.4 mmol/L (3.5-5.1)
[2019-11-01 09:38] LABS: African American GFR (CKD) >90 (>60 ml/min/1.73 sqM); Anion Gap 10 mmol/L; Blood Urea Nitrogen 15 mg/dL (7-17); Calcium 9.9 mg/dL (8.4-10.2); Carbon Dioxide 26 mmol/L (22-30); Chloride 102 mmol/L (98-107); Glucose 213 mg/dL (74-99); Non-African American GFR(CKD) 86 (>60 ml/min/1.73 sqM); Sodium 138 mmol/L (137-145)
[2019-11-01 12:08] LABS: Glucose,Whole Blood 241 mg/dL (75-99)
[2019-11-01 16:35] LABS: Glucose,Whole Blood 264 mg/dL (75-99)
[2019-11-01 20:32] LABS: Glucose,Whole Blood 257 mg/dL (75-99)
[2019-11-01] MEDS: LORATADINE 10 MG TAB PO SCH (21:42)
--- NOTE | 2019-11-02 02:21 | PN ---
PROGRESS NOTE DATE OF SERVICE: 11/01/2019 This 53-year-old woman who was admitted with acute urinary tract infection with sepsis with possibly E. coli being closely monitored. No chest pain. No palpitations. No fever. An abdomen pelvis CT scan was done yesterday which showed distended urinary bladder and some mild left hydronephrosis also noted as well the cultures are noted. The most recent blood cultures are negative. Otherwise, urine and blood culture showing E coli. Infectious Disease is following the patient closely. The patient is on IV Rocephin at this time to which both E coli is sensitive. PAST MEDICAL HISTORY: Reviewed. REVIEW OF SYSTEMS: CARDIOVASCULAR SYSTEM: No angina. RESPIRATORY SYSTEM: As mentioned earlier. GI: As mentioned earlier. : As mentioned earlier. NERVOUS SYSTEM: No numbness or weakness. CURRENT MEDICATIONS: Current medications are reviewed and include: Tylenol, Zyloprim, Norvasc, Eliquis, aspirin, Lipitor, Rocephin, vitamin D3, Apresoline, NovoLog, Tradjenta, Claritin, magnesium oxide, Lopressor, Narcan, Zofran, Protonix. PHYSICAL EXAMINATION: Patient is alert and oriented x3. Pulse is 65, blood pressure 150/75, respiration 18, temperature is 98.1, pulse ox 91% on room air. HEENT: Conjunctivae normal. Oral mucosa moist. NECK: No jugular venous distention. No carotid bruit. No lymph node enlargement. CARDIOVASCULAR: S1, S2 muffled. RESPIRATORY: Breath sounds diminished at the bases. Scattered rhonchi. No crackles. ABDOMEN: Soft, nontender. No mass palpable. LEGS: No edema. No swelling. NERVOUS SYSTEM: No focal deficits. LABS: WBC 5, hemoglobin 11.2. Glucose 213. ASSESSMENT: 1. Acute urinary tract infection with sepsis present on admission with possibly Escherichia coli. 2. Escherichia coli from the blood. 3. Anemia, normocytic anemia of chronic disease. 4. CT scan of the abdomen showing distended with some mild left hydronephrosis and hydroureter. 5. Thrombocytopenia. 6. History of asthma. 7. History of congestive heart failure. 8. Diabetes mellitus type 2. 9. Hypertension. 10.Hyperlipidemia. 11.History of cervical cancer. 12.History of glaucoma. 13.History of hypertrophic cardiomyopathy. 14.History of cardiac catheterization. 15.History of EZEKIEL. 16.History of pacemaker implantation. 17.History of aortic valve replacement. 18.History of iliac stent in right leg. 19.History of obesity with body mass index of 32. 20.FULL CODE. RECOMMENDATIONS AND DISCUSSION: Recommend to continue current medications, continue with monitoring and symptomatic treatment. Otherwise, at this time I recommend to continue the antibiotics. Repeat cultures are negative so far. We will continue to monitor. Otherwise if the repeat cultures are positive, we will continue with further workup. Further recommendations to follow. MMODL / IJN: [id number] / ABRAHAM
--- NOTE | 2019-11-02 06:46 | PN ---
PROGRESS NOTE DATE OF SERVICE: 11/01/2019. REASON FOR FOLLOWUP: E coli UTI and bacteremia. INTERVAL HISTORY: Patient is currently afebrile. The patient is breathing comfortably. The patient denies having any chest pain. No shortness of breath or cough. No nausea, vomiting. No abdominal pain. No diarrhea. PHYSICAL EXAMINATION: Blood pressure is 150/75 with a pulse of 65, temperature 98.1. She is 91% on room air. General description is a middle-aged female up in the chair in no distress. RESPIRATORY SYSTEM: Unlabored breathing, clear to auscultation anteriorly. HEART: S1, S2. Regular rate and rhythm. ABDOMEN: Soft, no tenderness. LABS: White count 5.0 creatinine 0.79. Blood culture repeat 10/29 negative. DIAGNOSTIC IMPRESSION AND PLAN: Patient with Escherichia coli bacteremia secondary to urinary source. Overall clinical improvement on the Rocephin. Finish therapy with oral Ceftin for another 10 days. Continue supportive care. MMODL / IJN: [id number] /
[2019-11-02] MEDS: SODIUM CHLORIDE 0.9% 1,000 ML IV SCH (06:58)
[2019-11-02 07:05] LABS: Glucose,Whole Blood 215 mg/dL (75-99)
[2019-11-02] MEDS: VIT A,C & E-LUTEIN-MINERALS 1 EACH TAB PO SCH ×2 (08:52→20:44)
[2019-11-02] MEDS: METOPROLOL TARTRATE 12.5 MG TAB PO SCH ×2 (08:52→20:44)
[2019-11-02] MEDS: hydrALAZINE HCL 25 MG TAB PO SCH ×2 (08:52→20:44)
[2019-11-02] MEDS: APIXABAN 5 MG TAB PO SCH ×2 (08:52→20:44)
[2019-11-02] MEDS: MAGNESIUM OXIDE 400 MG TAB PO SCH ×2 (08:52→20:44)
[2019-11-02] MEDS: ASPIRIN 81 MG PO SCH (08:52)
[2019-11-02] MEDS: PANTOPRAZOLE 40 MG TABLET PO SCH (08:52)
[2019-11-02] MEDS: LINAGLIPTIN 5 MG TABLET PO SCH (08:52)
[2019-11-02] MEDS: amLODIPine 5 MG TAB PO SCH (08:52)
[2019-11-02] MEDS: INSULIN ASPART (NovoLOG) 100 UNIT/ML VIAL SQ SCH ×4 (08:53→20:43)
[2019-11-02] MEDS: DORZOLAMIDE-TIMOLOL 2.23%/0.68 10ML BTL BOTH EYES SCH ×2 (08:53→20:44)
[2019-11-02] MEDS: ALLOPURINOL 100 MG TAB PO SCH (08:53)
[2019-11-02 09:39] LABS: Basophils % (A) 1 %; Eosinophils # (A) 0.3 k/uL (0-0.7); Eosinophils % (A) 5 %; HCT 37.7 % (34.0-46.0); HGB 12.1 gm/dL (11.4-16.0); Lymphocytes # (A) 1.6 k/uL (1.0-4.8); Lymphocytes % (A) 28 %; MCH 28.7 pg (25.0-35.0); MCHC 32.2 g/dL (31.0-37.0); MCV 89.4 fL (80.0-100.0); Mean Platelet Volume 8.5; Monocytes # (A) 0.3 k/uL (0-1.0); Monocytes % (A) 6 %; Neutrophils # (A) 3.1 k/uL (1.3-7.7); Neutrophils % (A) 56 %; Platelet Count 176 k/uL (150-450); RBC 4.22 m/uL (3.80-5.40); RDW 13.3 % (11.5-15.5); WBC 5.6 k/uL (3.8-10.6)
[2019-11-02 09:56] LABS: African American GFR (CKD) >90 (>60 ml/min/1.73 sqM); Anion Gap 15 mmol/L; Blood Urea Nitrogen 17 mg/dL (7-17); Calcium 10.1 mg/dL (8.4-10.2); Carbon Dioxide 22 mmol/L (22-30); Chloride 102 mmol/L (98-107); Glucose 274 mg/dL (74-99); Non-African American GFR(CKD) 82 (>60 ml/min/1.73 sqM); Potassium 4.5 mmol/L (3.5-5.1); Sodium 139 mmol/L (137-145)
[2019-11-02 11:57] LABS: Glucose,Whole Blood 280 mg/dL (75-99)
--- NOTE | 2019-11-02 15:34 | PN ---
PROGRESS NOTE DATE OF SERVICE: 11/02/2019 REASON FOR FOLLOWUP: E coli UTI and bacteremia. INTERVAL HISTORY: The patient is currently afebrile. The patient is breathing comfortably. The patient denies having any chest pain or shortness of breath or cough. No nausea, no vomiting, no abdominal pain or diarrhea. PHYSICAL EXAMINATION: Blood pressure 172/93 with a pulse of 64, temperature 98.1. She is 93% on room air. General description is a middle-aged female lying in bed in no distress. RESPIRATORY SYSTEM: Unlabored breathing. Clear to auscultation anteriorly. HEART: S1, S2. Regular rate and rhythm. ABDOMEN: Soft. No tenderness. LABS: Hemoglobin is 12.1, white count 5.7, BUN of 17, creatinine 0.82. Blood culture repeat has been negative. DIAGNOSTIC IMPRESSION AND PLAN: Patient with Escherichia coli bacteremia secondary to urinary source. Follow-up blood culture has been negative. She is currently on Rocephin, finishing therapy with Ceftin 500 mg twice a day for another 10 days and close outpatient followup. MMODL / IJN: [id number] /
[2019-11-02 16:56] LABS: Glucose,Whole Blood 367 mg/dL (75-99)
[2019-11-02 17:05] LABS: Appearance,Urine Clear (Clear); Bilirubin,Urine Negative (Negative); Blood,Urine Moderate (Negative); Color,Urine Light Yellow; Glucose,Urine (UA) 3+ (Negative); Ketones,Urine Negative (Negative); Leukocyte Esterase,Urine Negative (Negative); Mucus,Urine Rare /hpf; Nitrite,Urine Negative (Negative); PH, Urine 6.5 (5.0-8.0); Protein,Urine 1+ (Negative); RBC,Urine 4 /hpf (0-5); Specific Gravity,Urine 1.007 (1.001-1.035); Squamous Epithelial Cell,Urine <1 /hpf (0-4); Urobilinogen,Urine <2.0 mg/dL (<2.0); WBC,Urine 1 /hpf (0-5)
--- NOTE | 2019-11-02 19:37 | PN ---
PROGRESS NOTE DATE OF SERVICE: 11/02/2019 This 53-year-old woman who was admitted with acute UTI is being closely monitored. Patient also to the disease culture grew E coli. Repeat blood cultures are negative. No chest pain. No palpitations. No fever. PHYSICAL EXAMINATION: Alert and oriented x3. Pulse 66, blood pressure 153/60, respiration 18, temperature 97.8, pulse ox 96% on 2 L. HEENT: Conjunctivae normal. NECK: No jugular venous distention. CARDIOVASCULAR SYSTEM: S1, S2 muffled. RESPIRATORY SYSTEM: Breath sounds diminished at the bases. No rhonchi. No crackles. ABDOMEN: Soft, non-tender. LEGS: No edema. No swelling. NERVOUS SYSTEM: No focal deficit. LABS: WBC 5.6, hemoglobin 12.1, glucose 274. ASSESSMENT: 1. Acute urinary tract infection with sepsis, present on admission, with possibly Escherichia coli. 2. Escherichia coli from the blood. 3. Anemia, normocytic anemia of chronic disease. 4. CT scan of the abdomen showing distended bladder with some mild left hydronephrosis and hydroureter. 5. Thrombocytopenia. 6. History of asthma. 7. History of congestive heart failure. 8. Diabetes mellitus, type 2. 9. Hypertension. 10.Hyperlipidemia. 11.History of cervical cancer. 12.History of glaucoma. 13.History of hypertrophic cardiomyopathy. 14.History of cardiac catheterization. 15.History of transesophageal echocardiogram. 16.History of pacemaker implant. 17.History of aortic valve replacement. 18.History of iliac stent in the right leg. 19.History of obesity with body mass index of 32. 20.FULL CODE. RECOMMENDATIONS AND DISCUSSION: I recommend to continue current medications, continue with the monitoring, symptomatic treatment. Continue the antibiotics. Follow the cultures. Monitor blood sugars closely. Guarded prognosis because of multiple complex medical issues. Further recommendations to follow. MMODL / IJN: [id number] /
[2019-11-02 20:18] LABS: Glucose,Whole Blood 283 mg/dL (75-99)
[2019-11-02] MEDS: LORATADINE 10 MG TAB PO SCH (20:45)
[2019-11-03] MEDS: amLODIPine 10 MG TAB PO SCH ×2 (01:43→01:44)
[2019-11-03 01:44] VITALS: PULSE 60
[2019-11-03 06:58] LABS: Glucose,Whole Blood 233 mg/dL (75-99)
[2019-11-03 07:26] VITALS: BP 165/79; RESP 19; TEMP 98
[2019-11-03] MEDS: ATORVASTATIN 20 MG TAB PO SCH (08:16)
[2019-11-03] MEDS: ERGOCALCIFEROL 50,000 UNIT CAP PO SCH (08:18)
[2019-11-03] MEDS: VIT A,C & E-LUTEIN-MINERALS 1 EACH TAB PO SCH (08:18)
[2019-11-03] MEDS: INSULIN ASPART (NovoLOG) 100 UNIT/ML VIAL SQ SCH (08:18)
[2019-11-03] MEDS: hydrALAZINE HCL 25 MG TAB PO SCH (08:19)
[2019-11-03] MEDS: METOPROLOL TARTRATE 12.5 MG TAB PO SCH (08:19)
[2019-11-03] MEDS: PANTOPRAZOLE 40 MG TABLET PO SCH (08:19)
[2019-11-03] MEDS: APIXABAN 5 MG TAB PO SCH (08:19)
[2019-11-03] MEDS: LINAGLIPTIN 5 MG TABLET PO SCH (08:19)
[2019-11-03] MEDS: ASPIRIN 81 MG PO SCH (08:19)
[2019-11-03] MEDS: MAGNESIUM OXIDE 400 MG TAB PO SCH (08:19)
[2019-11-03] MEDS: ALLOPURINOL 100 MG TAB PO SCH (08:19)
[2019-11-03] MEDS: DORZOLAMIDE-TIMOLOL 2.23%/0.68 10ML BTL BOTH EYES SCH (08:20)
[2019-11-03 11:19] LABS: Glucose,Whole Blood 352 mg/dL (75-99)
--- NOTE | 2019-11-03 14:56 | P.DS ---
Providers Date of admission: 11/01/19 09:58 Expected date of discharge: 11/03/19 Attending physician: Mike Cho Consults: 10/30/19 10:59 Consult Physician Urgent Consulting Provider: Abbey Ramirez Consult Reason/Comments: positive blood cultures Do you want consulting provider notified?: Yes Primary care physician: [facility] Course: Final diagnosis Acute urinary tract infection with sepsis, present on admission, with possible E. coli E. coli in the blood Anemia, normocytic anemia of chronic disease Computed tomography scan of the abdomen showed distended bladder with some mild left hydronephrosis and hydroureter Thrombocytopenia History of asthma History of congestive heart failure Diabetes mellitus type 2, uncontrolled with hyperglycemia Hypertension Hyperlipidemia Full code Discharge disposition Patient is being discharged in a stable condition with guarded prognosis to home. Patient will follow-up with Dr. Art upon discharge. Patient will also follow-up with urology Dr. perez in the outpatient setting . Patient will continue on oral antibiotics in the form of Ceftin 500 mg twice daily for the next 10 days. Total time taken is 35 minutes. History of present illness This is an 53-year-old female who was recently admitted with acute urinary tract infection and was being closely monitored. Patient also had positive blood cultures showing E. coli. Repeat blood cultures have been negative. Urine cultures also finalized with E. coli. Patient will continue with oral antibiotics in the form of Ceftin 500 mg twice daily for the next 10 days. Infectious Disease is following closely. Patient will need to follow-up with her primary care provider upon discharge. Discussed with the patient about monitoring her blood sugars before meals at bedtime and keeping a diary for primary care follow-up. Patient's sugars continued to be slightly elevated during hospitalization. Home medications being resumed and instructed to monitor closely. Patient verbalized understanding. Currently no reports of chest pain, shortness of breath, or palpitations. Patient is afebrile. No reports of nausea or vomiting and patient is tolerating diet. On exam vital signs are stable. Temp is 98.0F, pulse is 60, respirations are 19, blood pressure is 165/79, oxygen saturation is 96 % on room air. Cardio S1, S2 are present. Respiratory system shows clear to auscultation. Abdomen is soft and nontender. Nervous system shows no focal deficits. Please refer to medication reconciliation sheet for a list of medications. Patient Condition at Discharge: Stable Plan - Discharge Summary Discharge Rx Participant: Yes New Discharge Prescriptions: New Cefuroxime Axetil [Ceftin] 500 mg PO BID 10 Days #20 tab Acetaminophen Tab [Tylenol] 650 mg PO Q6HR PRN #30 tab PRN Reason: Mild Pain Or Fever > 100.5 Continue Dorzolamide HCl/Timolol Maleat [Cosopt Eye Drops] 1 drop BOTH EYES BID Cetirizine HCl [Zyrtec] 10 mg PO HS glyBURIDE/METFORMIN HCL [Glucovance 5-500 mg Tablet] 1 tab PO BID Omeprazole [PriLOSEC] 20 mg PO DAILY Ergocalciferol [Vitamin D2 (DRISDOL)] 50,000 unit PO TUFR amLODIPine [Norvasc] 10 mg PO DAILY Rosuvastatin Calcium [Crestor] 10 mg PO Q48H Magnesium Oxide 400 mg PO BID Vit C/E/Zn/Coppr/Lutein/Zeaxan [Preservision Areds 2 Softgel] 1 cap PO BID Cranberry 4200mg 2 tab PO BID Aspirin EC [Ecotrin Low Dose] 81 mg PO DAILY Metoprolol Tartrate [Lopressor] 12.5 mg PO BID sitaGLIPtin PHOSPHATE [Januvia] 100 mg PO DAILY hydrALAZINE HCL 25 mg PO BID Apixaban [Eliquis] 5 mg PO BID Allopurinol [Zyloprim] 100 mg PO DAILY Discontinued Furosemide [Lasix] 20 mg PO DAILY Discharge Medication List Cetirizine HCl [Zyrtec] 10 mg PO HS 01/23/14 [History] Dorzolamide HCl/Timolol Maleat [Cosopt Eye Drops] 1 drop BOTH EYES BID 01/23/14 [History] Omeprazole [PriLOSEC] 20 mg PO DAILY 01/23/14 [History] glyBURIDE/METFORMIN HCL [Glucovance 5-500 mg Tablet] 1 tab PO BID 01/23/14 [History] Ergocalciferol [Vitamin D2 (DRISDOL)] 50,000 unit PO TUFR 07/22/17 [History] Rosuvastatin Calcium [Crestor] 10 mg PO Q48H 07/22/17 [History] amLODIPine [Norvasc] 10 mg PO DAILY 07/22/17 [History] Magnesium Oxide 400 mg PO BID 08/22/18 [History] Vit C/E/Zn/Coppr/Lutein/Zeaxan [Preservision Areds 2 Softgel] 1 cap PO BID 08/22/18 [History] Aspirin EC [Ecotrin Low Dose] 81 mg PO DAILY 03/19/19 [History] Cranberry 4200mg 2 tab PO BID 03/19/19 [History] Metoprolol Tartrate [Lopressor] 12.5 mg PO BID 03/19/19 [History] Allopurinol [Zyloprim] 100 mg PO DAILY 10/29/19 [History] Apixaban [Eliquis] 5 mg PO BID 10/29/19 [History] hydrALAZINE HCL 25 mg PO BID 10/29/19 [History] sitaGLIPtin PHOSPHATE [Januvia] 100 mg PO DAILY 10/29/19 [History] Acetaminophen Tab [Tylenol] 650 mg PO Q6HR PRN #30 tab 11/03/19 [Rx] Cefuroxime Axetil [Ceftin] 500 mg PO BID 10 Days #20 tab 11/03/19 [Rx] Follow up Appointment(s)/Referral(s): Jaylen Art MD [Primary Care Provider] - 11/10/19 10:10 am Gerald Perez MD [STAFF PHYSICIAN] - 11/17/19 10:40 am Activity/Diet/Wound Care/Special Instructions: Activity Limited until follow-up Continue current diet Continue with fluids and rest Continue antibiotics for 10 days Follow-up with primary care provider upon discharge Follow-up with urology in 2 weeks Discharge Disposition: HOME SELF-CARE
--- NOTE | 2019-11-03 15:10 | PN ---
PROGRESS NOTE DATE OF SERVICE: 11/03/2019 REASON FOR FOLLOWUP: E coli bacteremia UTI tract infection. INTERVAL HISTORY: Patient is currently afebrile. The patient is feeling better. Breathing comfortably. Patient denies having any chest pain. No shortness of breath or cough. No nausea. No abdominal pain, no diarrhea. EXAMINATION: Blood pressure 165/79 with a pulse of 60, temperature 98. She is 96% on room air. General description is a middle-aged female, lying in bed in no distress. RESPIRATORY SYSTEM: Unlabored breathing clear to auscultation. HEART: S1, S2. Regular rate and rhythm. ABDOMEN: Soft, no tenderness. LABS: Repeat UA done yesterday did show a lot improvement. DIAGNOSTIC IMPRESSION AND PLAN: Patient with E. coli bacteremia and repeat urine done yesterday. Did show overall clinical improvement on Rocephin. Finish therapy with oral Ceftin twice a day for another 10 days and close outpatient followup. MMODL / IJN: [id number] /
--- NOTE | 2019-11-05 13:19 | CDI ---
Documentation Clarification Form Date: 11/05/19 From: Megan Busch Phone: If you have a question about this query, please contact Niharika Means, [employer] Specialist at [phone] between 8am and 5pm. Admit Date: 11/01/19 Discharge Date: 11/03/19 Patient Name: CORTNEY PALOMO Visit Number: [id number] ATTENTION: The Clinical Documentation Specialists (CDI) and [facility] Coding Staff appreciate your assistance in clarifying documentation. Please respond to the clarification below the line at the bottom and electronically sign. The CDI & [facility] Coding staff will review the response and follow-up if needed. Please note: Queries are made part of the Legal Health Record. If you have any questions, please contact the author of this message via ITS. Dear Dr. Mike Cho, Heart failure/CHF is documented in the Consult, PNs 10/29, 10/30, 10/31 & 11/01 and DS. History/Risk Factors: HTN, hypertrophic cardiomyopathy, hyonatremia, E coli sepsis adn pynephrosis, SARAN, acidosis, thrombocytopenia, DM w hyperglycemia & glaucoma, hyperlipidemia, asthma Clinical Indicators: Past medical history of heart failure. VS/Pulse OX: T-103.5, P-86, R-20, BP-133/70, O2-99 BNP: none 06/2017 Echocardiogram Results: Left ventricular systolic function is mild- moderately impaired, EF between 40-45%. Chest X Ray: No evidence for acute pulmonary disease Treatment: Home med-Lasix 20 mg PO daily, IV Lasix 20 mg on 10/30 In your professional opinion, can you please clarify the acuity and type of CHF if known? TYPE Systolic Heart Failure Diastolic Heart Failure Systolic & Diastolic Heart Failure ACUITY Acute Chronic Acute on Chronic Heart Failure Unable to Determine Other, please specify Chronic Systolic Heart Failure MTDD
== END 2019-11-03 13:45 | disposition home or self-care (01) | DRG 872 ==
LOC: EC 15:48 → 4SSUR 17:59 → OBSVTOIN 11-01 09:58
PROVIDERS: ADMIT Internal Medicine; ATTEND Internal Medicine
DX: A41.51 Sepsis due to Escherichia coli [E. coli] (principal); N17.9 Acute kidney failure, unspecified; E87.1 Hypo-osmolality and hyponatremia; E87.2 Acidosis; I42.2 Other hypertrophic cardiomyopathy; N13.6 Pyonephrosis; I50.22 Chronic systolic (congestive) heart failure; D69.6 Thrombocytopenia, unspecified; D63.8 Anemia in other chronic diseases classified elsewhere; E11.65 Type 2 diabetes mellitus with hyperglycemia; Z20.828 Contact with and (suspected) exposure to other viral communicable diseases; E11.39 Type 2 diabetes mellitus with other diabetic ophthalmic complication; R65.20 Severe sepsis without septic shock; H40.9 Unspecified glaucoma; H42 Glaucoma in diseases classified elsewhere; J45.909 Unspecified asthma, uncomplicated; E78.5 Hyperlipidemia, unspecified; E66.9 Obesity, unspecified; Z68.32 Body mass index [BMI] 32.0-32.9, adult; Z79.01 Long term (current) use of anticoagulants; Z79.82 Long term (current) use of aspirin; Z79.84 Long term (current) use of oral hypoglycemic drugs; Z79.02 Long term (current) use of antithrombotics/antiplatelets; Z79.899 Other long term (current) drug therapy; Z87.440 Personal history of urinary (tract) infections; Z85.41 Personal history of malignant neoplasm of cervix uteri; Z90.710 Acquired absence of both cervix and uterus; Z87.39 Personal history of other diseases of the musculoskeletal system and connective tissue; Z87.442 Personal history of urinary calculi; Z95.0 Presence of cardiac pacemaker; Z95.2 Presence of prosthetic heart valve; Z95.828 Presence of other vascular implants and grafts; Z98.890 Other specified postprocedural states; Z88.0 Allergy status to penicillin; Z88.8 Allergy status to other drugs, medicaments and biological substances; Z91.011 Allergy to milk products; Z82.49 Family history of ischemic heart disease and other diseases of the circulatory system; Z80.9 Family history of malignant neoplasm, unspecified
CPT/HCPCS: 36415; 71046; 74176; 80048; 80053; 81001; 82009; 83605; 83735; 85025; 87040; 87077; 87086; 87186; 93005; 96361; 96374; 99285

== ENCOUNTER → 2019-12-04 | Outpatient (CLI) | payer BC ==
--- NOTE | 2019-12-04 12:06 | US ---
EXAMINATION TYPE: US venous doppler duplex UE LT DATE OF EXAM: 12/04/2019 COMPARISON: NONE CLINICAL HISTORY: I73.9 Peripheral vascular disease, unspecified. Patient stated has left arm swellin g x 1-2 weeks after IV in left arm first week of October. Pt. has pacemaker in left chest since last Jan maria ines. SIDE PERFORMED: left Left Arm: Can not rule out non occluding DVT at mid left Subclavian Vein due to possible scar tissue from pacemaker. Color flow in this area is not seen easily wall to wall but is noted proximally and d istally. Non occluding Superficial vein thrombosis noted mid Cephalic Vein at former IV site as vein is dilated here with wall echoes present. This cephalic vein still compresses. IMPRESSION: 1. Findings are suspicious for a localized DVT involving the mid left subclavian vein. 2. Nonoccluding mid cephalic vein venous thrombosis within the superficial venous system
== END | disposition home or self-care (01) ==
LOC: RADUSWWP 10:50
PROVIDERS: ATTEND Internal Medicine Interventional Cardiology
DX: I82.612 Acute embolism and thrombosis of superficial veins of left upper extremity (principal)

== ENCOUNTER → 2020-02-04 | Outpatient (CLI) | payer BC ==
--- NOTE | 2020-02-04 09:15 | MM ---
Reason for exam: screening (asymptomatic). Last mammogram was performed 1 year and 10 months ago. History: Patient is postmenopausal, has history of endometrial cancer at age 34, and is nulliparous. Family history of breast cancer in maternal aunt at age 64. Physical Findings: A clinical breast exam by your physician is recommended on an annual basis and results should be correlated with mammographic findings. MG Screening Mammo w CAD Bilateral CC and MLO view(s) were taken. Prior study comparison: March 31, 2018, bilateral MG screening mammo w CAD. December 10, 2016, bilateral MG screening mammo w CAD. The breast tissue is heterogeneously dense. This may lower the sensitivity of mammography. There are benign appearing round calcifications bilaterally. There is no discrete abnormality. Left axillary pacemaker current study. ASSESSMENT: Benign, BI-RAD 2 RECOMMENDATION: Routine screening mammogram of both breasts in 1 year.
== END | disposition home or self-care (01) ==
LOC: RADMAMWWP 06:51
PROVIDERS: ATTEND Obstetrics & Gynecology
DX: Z08 Encounter for follow-up examination after completed treatment for malignant neoplasm (principal); Z80.3 Family history of malignant neoplasm of breast
CPT/HCPCS: 77067

== ENCOUNTER 2020-09-15 21:24 | Emergency (ER) | payer BC ==
[2020-09-15 22:19] VITALS: BP 152/76; PULSE 76; RESP 178
[2020-09-15] MEDS ORDERED: ACETAMINOPHEN TAB 500 MG TAB PO STA (22:57)
[2020-09-15] MEDS ORDERED: IBUPROFEN 800 MG TAB PO STA (22:57)
[2020-09-15] MEDS ORDERED: PHENAZOPYRIDINE 200 MG TAB PO STA (22:57)
[2020-09-15] MEDS ORDERED: NITROFURANTOIN MONOHYD/M-CRYST 100 MG CAP PO STA (22:57)
[2020-09-15 23:17] LABS: Appearance,Urine Cloudy (Clear); Bacteria,Urine Many /hpf; Bilirubin,Urine Negative (Negative); Blood,Urine Trace (Negative); Color,Urine Yellow; Glucose,Urine (UA) 4+ (Negative); Ketones,Urine Trace (Negative); Leukocyte Esterase,Urine Large (Negative); Mucus,Urine Rare /hpf; Nitrite,Urine Negative (Negative); Protein,Urine 2+ (Negative); RBC,Urine 4 /hpf (0-5); Specific Gravity,Urine 1.019 (1.001-1.035); Squamous Epithelial Cell,Urine <1 /hpf (0-4); Urobilinogen,Urine <2.0 mg/dL (<2.0); WBC,Urine 84 /hpf (0-5)
--- NOTE | 2020-09-16 00:12 | ED ---
Female Urogenital HPI - General Chief complaint: Urogenital Stated complaint: UTI Time Seen by Provider: 09/15/20 22:57 Source: patient Mode of arrival: ambulatory Limitations: no limitations - Related Data Home Medications Medication Instructions Recorded Confirmed Cetirizine HCl [Zyrtec] 10 mg PO HS 01/23/14 10/29/19 Dorzolamide HCl/Timolol Maleat 1 drop BOTH EYES BID 01/23/14 10/29/19 [Cosopt Eye Drops] Omeprazole [PriLOSEC] 20 mg PO DAILY 01/23/14 10/29/19 glyBURIDE/METFORMIN HCL 1 tab PO BID 01/23/14 10/29/19 [Glucovance 5-500 mg Tablet] Ergocalciferol [Vitamin D2 50,000 unit PO TUFR 07/22/17 10/29/19 (DRISDOL)] Rosuvastatin Calcium [Crestor] 10 mg PO Q48H 07/22/17 10/29/19 amLODIPine [Norvasc] 10 mg PO DAILY 07/22/17 10/29/19 Magnesium Oxide 400 mg PO BID 08/22/18 10/29/19 Vit C/E/Zn/Coppr/Lutein/Zeaxan 1 cap PO BID 08/22/18 10/29/19 [Preservision Areds 2 Softgel] Aspirin EC [Ecotrin Low Dose] 81 mg PO DAILY 03/19/19 10/29/19 Cranberry 4200mg 2 tab PO BID 03/19/19 10/29/19 Metoprolol Tartrate [Lopressor] 12.5 mg PO BID 03/19/19 10/29/19 Allopurinol [Zyloprim] 100 mg PO DAILY 10/29/19 10/29/19 Apixaban [Eliquis] 5 mg PO BID 10/29/19 10/29/19 hydrALAZINE HCL 25 mg PO BID 10/29/19 10/29/19 sitaGLIPtin PHOSPHATE [Januvia] 100 mg PO DAILY 10/29/19 10/29/19 Previous Rx's Medication Instructions Recorded Acetaminophen Tab [Tylenol] 650 mg PO Q6HR PRN #30 tab 11/03/19 Cefuroxime Axetil [Ceftin] 500 mg PO BID 10 Days #20 tab 11/03/19 Nitrofurantoin Monohyd/M-Cryst 100 mg PO Q12HR #14 cap 09/16/20 [Macrobid] Allergies Allergy/AdvReac Type Severity Reaction Status Date / Time fluticasone propionate Allergy Unknown Verified 09/15/20 22:15 [From Flovent Diskus] methocarbamol [From Robaxin] Allergy Unknown Verified 09/15/20 22:15 Milk Containing Products Allergy Abdominal Verified 09/15/20 22:15 Pain Penicillins Allergy Unknown Verified 09/15/20 22:15 Review of Systems ROS Statement: Those systems with pertinent positive or pertinent negative responses have been documented in the HPI. ROS Other: All systems not noted in ROS Statement are negative. Past Medical History Past Medical History: Asthma, Cancer, Heart Failure, Diabetes Mellitus, Hyperlipidemia, Hypertension Additional Past Medical History / Comment(s): cervical CA, glaucoma (both eyes). pt has hypertrophic cardiomyopathy History of Any Multi-Drug Resistant Organisms: None Reported Past Surgical History: Heart Catheterization, Hysterectomy Additional Past Surgical History / Comment(s): cyst removed rt wrist. surgery- septum of heart shaved down and scar tissue removed. EZEKIEL. Open heart surgery 2006. Pacemaker placed February 20, 2019. Aortic Valve replacement 02/20/19. Iliac Stent right leg 02/12/19 Past Anesthesia/Blood Transfusion Reactions: No Reported Reaction Past Psychological History: No Psychological Hx Reported Smoking Status: Never smoker Past Alcohol Use History: None Reported Past Drug Use History: None Reported - Past Family History Father Family Medical History: Myocardial Infarction ([place]) Mother Family Medical History: AFIB, Cancer Additional Family Medical History / Comment(s): unknown type of CA General Exam Limitations: no limitations Course Vital Signs 09/15/20 22:16 Temperature 100.6 F H Pulse Rate 76 Respiratory 178 H Rate Blood Pressure 152/76 O2 Sat by Pulse 97 Oximetry Medical Decision Making - Lab Data Lab Results 09/15/20 Range/Units 22:34 Urine Color Yellow Urine Appearance Cloudy H (Clear) Urine pH 6.0 (5.0-8.0) Ur Specific [place] 1.019 (1.001-1.035) Urine Protein 2+ H (Negative) Urine Glucose (UA) 4+ H (Negative) Urine Ketones Trace H (Negative) Urine Blood Trace H (Negative) Urine Nitrite Negative (Negative) Urine Bilirubin Negative (Negative) Urine Urobilinogen <2.0 (<2.0) mg/dL Ur Leukocyte Esterase Large H (Negative) Urine RBC 4 (0-5) /hpf Urine WBC 84 H (0-5) /hpf Urine WBC Clumps Few H (None) /hpf Ur Squamous Epith Cells <1 (0-4) /hpf Urine Bacteria Many H (None) /hpf Urine Mucus Rare H (None) /hpf Disposition Clinical Impression: UTI (urinary tract infection) Disposition: HOME SELF-CARE Condition: Good Instructions (If sedation given, give patient instructions): Urinary Tract Infection in Women (ED) Prescriptions: Nitrofurantoin Monohyd/M-Cryst [Macrobid] 100 mg PO Q12HR #14 cap Is patient prescribed a controlled substance at d/c from ED?: No Referrals: Jaylen Art MD [Primary Care Provider] - 1-2 days
[2020-09-16 00:24] VITALS: TEMP 99.3
== END 2020-09-16 00:24 | disposition home or self-care (01) ==
LOC: EC 21:24
DX: N39.0 Urinary tract infection, site not specified (principal); J45.909 Unspecified asthma, uncomplicated; I11.0 Hypertensive heart disease with heart failure; I50.9 Heart failure, unspecified; E78.5 Hyperlipidemia, unspecified; E11.39 Type 2 diabetes mellitus with other diabetic ophthalmic complication; H40.9 Unspecified glaucoma; Z79.82 Long term (current) use of aspirin; Z79.01 Long term (current) use of anticoagulants; Z79.84 Long term (current) use of oral hypoglycemic drugs; Z88.0 Allergy status to penicillin; Z95.0 Presence of cardiac pacemaker; B96.89 Other specified bacterial agents as the cause of diseases classified elsewhere
CPT/HCPCS: 81001; 87077; 87086; 87186; 99283

== ENCOUNTER 2021-02-09 17:27 | Emergency (ER) | payer BC ==
[2021-02-09 19:50] VITALS: BP 156/83; PULSE 72; RESP 19; TEMP 98.2
[2021-02-09] MEDS ORDERED: predniSONE 50 MG TAB PO STA (20:29)
[2021-02-09] MEDS ORDERED: HYDROCORTISONE 1% CREAM 30 GM TUBE TOPICAL STA (20:29)
[2021-02-09] MEDS ORDERED: FAMOTIDINE 20 MG TAB PO STA (20:29)
--- NOTE | 2021-02-09 20:31 | ED ---
Skin/Abscess/FB HPI - General Chief complaint: Skin/Abscess/Foreign Body Stated complaint: Skin/Allergic Reaction Time Seen by Provider: 02/09/21 20:12 Source: patient Mode of arrival: ambulatory - History of Present Illness Initial comments: 55 year-old female patient presents to the emergency department for evaluation of rash to the left arm. Patient states it started a couple of days ago. States it is very itchy. Denies any pain. Denies drainage. She denies fever or chills. Denies exposure to new substances or plants. 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 Does not recall any pain. She did take Benadryl yesterday which is him help somewhat. Has not taken any medication today. - Related Data Home Medications Medication Instructions Recorded Confirmed Cetirizine HCl [Zyrtec] 10 mg PO HS 01/23/14 10/29/19 Dorzolamide HCl/Timolol Maleat 1 drop BOTH EYES BID 01/23/14 10/29/19 [Cosopt Eye Drops] Omeprazole [PriLOSEC] 20 mg PO DAILY 01/23/14 10/29/19 glyBURIDE/METFORMIN HCL 1 tab PO BID 01/23/14 10/29/19 [Glucovance 5-500 mg Tablet] Ergocalciferol [Vitamin D2 50,000 unit PO TUFR 07/22/17 10/29/19 (DRISDOL)] Rosuvastatin Calcium [Crestor] 10 mg PO Q48H 07/22/17 10/29/19 amLODIPine [Norvasc] 10 mg PO DAILY 07/22/17 10/29/19 Magnesium Oxide 400 mg PO BID 08/22/18 10/29/19 Vit C/E/Zn/Coppr/Lutein/Zeaxan 1 cap PO BID 08/22/18 10/29/19 [Preservision Areds 2 Softgel] Aspirin EC [Ecotrin Low Dose] 81 mg PO DAILY 03/19/19 10/29/19 Cranberry 4200mg 2 tab PO BID 03/19/19 10/29/19 Metoprolol Tartrate [Lopressor] 12.5 mg PO BID 03/19/19 10/29/19 Allopurinol [Zyloprim] 100 mg PO DAILY 07/02/20 07/02/20 Apixaban [Eliquis] 5 mg PO BID 10/29/19 10/29/19 hydrALAZINE HCL 25 mg PO BID 10/29/19 10/29/19 sitaGLIPtin PHOSPHATE [Januvia] 100 mg PO DAILY 10/29/19 10/29/19 Previous Rx's Medication Instructions Recorded Acetaminophen Tab [Tylenol] 650 mg PO Q6HR PRN #30 tab 11/03/19 Cefuroxime Axetil [Ceftin] 500 mg PO BID 10 Days #20 tab 11/03/19 Nitrofurantoin Monohyd/M-Cryst 100 mg PO Q12HR #14 cap 09/16/20 [Macrobid] Allergies Allergy/AdvReac Type Severity Reaction Status Date / Time fluticasone propionate Allergy Unknown Verified 02/09/21 19:50 [From Flovent Diskus] methocarbamol [From Robaxin] Allergy Unknown Verified 02/09/21 19:50 Milk Containing Products Allergy Abdominal Verified 02/09/21 19:50 Pain Penicillins Allergy Unknown Verified 02/09/21 19:50 Review of Systems ROS Statement: Those systems with pertinent positive or pertinent negative responses have been documented in the HPI. ROS Other: All systems not noted in ROS Statement are negative. Past Medical History Past Medical History: Asthma, Cancer, Heart Failure, Diabetes Mellitus, Hyperlipidemia, Hypertension Additional Past Medical History / Comment(s): cervical CA, glaucoma (both eyes). pt has hypertrophic cardiomyopathy History of Any Multi-Drug Resistant Organisms: None Reported Past Surgical History: Heart Catheterization, Hysterectomy Additional Past Surgical History / Comment(s): cyst removed rt wrist. surgery- septum of heart shaved down and scar tissue removed. EZEKIEL. Open heart surgery 2006. Pacemaker placed February 20, 2019. Aortic Valve replacement 02/20/19. Iliac Stent right leg 02/12/19 Past Anesthesia/Blood Transfusion Reactions: No Reported Reaction Past Psychological History: No Psychological Hx Reported Smoking Status: Never smoker Past Alcohol Use History: None Reported Past Drug Use History: None Reported - Past Family History Father Family Medical History: Myocardial Infarction ([place]) Mother Family Medical History: AFIB, Cancer Additional Family Medical History / Comment(s): unknown type of CA General Exam General appearance: alert, in no apparent distress, other (This is a well- developed, well-nourished adult female patient in no acute distress. Vital signs upon presentation are temperature 98.2F, pulse 72, respirations 19, blood pressure 156/83, pulse ox 98% on room air.) Respiratory exam: Present: normal lung sounds bilaterally. Absent: respiratory distress, wheezes, rales, rhonchi, stridor Cardiovascular Exam: Present: regular rate, normal rhythm, normal heart sounds. Absent: systolic murmur, diastolic murmur, rubs, gallop, clicks Extremities exam: Present: full ROM, normal capillary refill, other (There is erythematous rash noted to the left arm. There are small bumps surrounded by non-blanchable erythema. No vesicles. No petechiae. Area is warm to touch.). Absent: tenderness, pedal edema, joint swelling, calf tenderness Neurological exam: Present: alert, oriented X3, CN II-XII intact Psychiatric exam: Present: normal affect, normal mood Skin exam: Present: warm, dry, intact, normal color. Absent: rash Course Vital Signs 02/09/21 19:48 Temperature 98.2 F Pulse Rate 72 Respiratory 19 Rate Blood Pressure 156/83 O2 Sat by Pulse 98 Oximetry Medical Decision Making - Medical Decision Making 55-year-old female patient presents to the emergency department today for evaluation of rash to the left arm. Physical examination does reveal erythematous non-blanchable rash. Rash is consistent with possible multiple insect bites or contact, tightness. She is afebrile normal vital signs. She'll be treated with 5 day course of steroids and Pepcid. Instructed take Benadryl as needed. She is given tube of hydrocortisone cream. She is instructed follow with the primary care physician for recheck in 1-2 days. Return parameters were discussed in detail. She verbalizes understanding and agrees with this plan. My attending is Dr. Arias. Disposition Clinical Impression: Rash, Contact dermatitis Disposition: HOME SELF-CARE Condition: Good Instructions (If sedation given, give patient instructions): Contact Dermatitis (ED), Acute Rash (ED) Additional Instructions: Use cortisone cream twice daily. Take Pepcid and prednisone until prescription is complete. Return for any new, worsening, or concerning symptoms. Follow up with your primary care physician for recheck in 1-2 days. Is patient prescribed a controlled substance at d/c from ED?: No Referrals: Jaylen Art MD [Primary Care Provider] - 1-2 days Time of Disposition: 20:31
== END 2021-02-09 21:35 | disposition home or self-care (01) ==
LOC: EC 17:27
DX: L25.9 Unspecified contact dermatitis, unspecified cause (principal); J45.909 Unspecified asthma, uncomplicated; E11.9 Type 2 diabetes mellitus without complications; I11.0 Hypertensive heart disease with heart failure; I50.9 Heart failure, unspecified; E78.5 Hyperlipidemia, unspecified; Z88.0 Allergy status to penicillin; Z91.011 Allergy to milk products; Z88.8 Allergy status to other drugs, medicaments and biological substances; Z79.899 Other long term (current) drug therapy; Z79.82 Long term (current) use of aspirin; Z79.84 Long term (current) use of oral hypoglycemic drugs
CPT/HCPCS: 99282; J7512

== ENCOUNTER → 2021-05-01 | Outpatient (CLI) | payer OTHER ==
--- NOTE | 2021-05-01 16:01 | XR ---
EXAMINATION TYPE: XR knee complete RT DATE OF EXAM: 05/01/2021 COMPARISON: NONE HISTORY: 55-year-old female contusion anterior knee, slipped on water. Pain. TECHNIQUE: 3 views FINDINGS: Nondisplaced vertical fracture involving the lateral tibial plateau with intra-articular extension be st seen on the oblique view. No articular surface incongruence. There is a moderate joint effusion/he marthrosis, anterior soft tissue swelling, and double density of the anterior cortical margin of the patella on the lateral view. No subluxation or dislocation seen. IMPRESSION: 1. Nondisplaced, intra-articular vertical fracture of the lateral tibial plateau. No articular surfac e incongruity. 2. Double density of the anterior cortical margin of the patella on the lateral view. Unable to exclu de a subtle avulsion or chip fracture. 3. Moderate joint effusion/hemarthrosis.
== END | disposition home or self-care (01) ==
LOC: RADXRMAIN 15:33
PROVIDERS: ATTEND Emergency Medicine
DX: S82.144A Nondisplaced bicondylar fracture of right tibia, initial encounter for closed fracture (principal); S80.01XA Contusion of right knee, initial encounter; W01.0XXA Fall on same level from slipping, tripping and stumbling without subsequent striking against object, initial encounter

== ENCOUNTER 2021-06-25 06:51 | Observation (INO) | payer BC, OTHER ==
[2021-06-25] MEDS ORDERED: SODIUM CHLORIDE 0.9% 1,000 ML IV STA (07:05)
[2021-06-25] MEDS ORDERED: ONDANSETRON 4 MG/2 ML VIAL IVP STA (07:05)
[2021-06-25] MEDS ORDERED: FAMOTIDINE 20 MG/2 ML VIAL IV STA (07:06)
--- NOTE | 2021-06-25 07:11 | ED ---
Nausea/Vomiting/Diarrhea HPI - General Chief complaint: Nausea/Vomiting/Diarrhea Stated complaint: Nausea, vomiting Time Seen by Provider: 06/25/21 06:54 Source: patient, EMS, RN notes reviewed Mode of arrival: EMS Limitations: no limitations - History of Present Illness Initial comments: Patient presents with several episodes of vomiting and diarrhea for the last 5 hours. She states she Vomiting about 30 times. Patient denies fever or chills. No hematemesis or coffee-ground emesis. No melena or hematochezia. Vomiting is basically food contents from last night and diarrhea is watery. No ill contacts. No recent travel. No headache, no fever or chills, no changes in vision or hearing, no sore throat or difficulty with speech, no neck pain, no chest pain or shortness of breath, no abdominal pain, no changes in urination or bowel movements, no numbness or tingling, no extremity pain, no skin rashes or lesions. Patient with a known history of hypertension, hyperlipidemia, diabetes mellitus with insulin dependence, heart failure, cervical cancer, and asthma. MD complaint: nausea, vomiting, diarrhea Onset/Timin -: hour(s) Description of Vomiting: food contents, watery Description of Diarrhea: water Associated Abdominal Pain: No (Only nausea) Quality: other (Patient denying any pain) Context: other (founding variable) Associated Symptoms: denies other symptoms - Related Data Home Medications Medication Instructions Recorded Confirmed Cetirizine HCl [Zyrtec] 10 mg PO HS 01/23/14 10/29/19 Dorzolamide HCl/Timolol Maleat 1 drop BOTH EYES BID 01/23/14 10/29/19 [Cosopt Eye Drops] Omeprazole [PriLOSEC] 20 mg PO DAILY 01/23/14 10/29/19 glyBURIDE/METFORMIN HCL 1 tab PO BID 01/23/14 10/29/19 [Glucovance 5-500 mg Tablet] Ergocalciferol [Vitamin D2 50,000 unit PO TUFR 07/22/17 10/29/19 (DRISDOL)] Rosuvastatin Calcium [Crestor] 10 mg PO Q48H 07/22/17 10/29/19 amLODIPine [Norvasc] 10 mg PO DAILY 07/22/17 10/29/19 Magnesium Oxide 400 mg PO BID 08/22/18 10/29/19 Vit C/E/Zn/Coppr/Lutein/Zeaxan 1 cap PO BID 08/22/18 10/29/19 [Preservision Areds 2 Softgel] Aspirin EC [Ecotrin Low Dose] 81 mg PO DAILY 03/19/19 10/29/19 Cranberry 4200mg 2 tab PO BID 03/19/19 10/29/19 Metoprolol Tartrate [Lopressor] 12.5 mg PO BID 03/19/19 10/29/19 Allopurinol [Zyloprim] 100 mg PO DAILY 10/29/19 10/29/19 Apixaban [Eliquis] 5 mg PO BID 10/29/19 10/29/19 hydrALAZINE HCL 25 mg PO BID 10/29/19 10/29/19 sitaGLIPtin PHOSPHATE [Januvia] 100 mg PO DAILY 10/29/19 10/29/19 Previous Rx's Medication Instructions Recorded Acetaminophen Tab [Tylenol] 650 mg PO Q6HR PRN #30 tab 11/03/19 Cefuroxime Axetil [Ceftin] 500 mg PO BID 10 Days #20 tab 11/03/19 Nitrofurantoin Monohyd/M-Cryst 100 mg PO Q12HR #14 cap 09/16/20 [Macrobid] Famotidine [Pepcid] 20 mg PO DAILY #5 tablet 02/09/21 predniSONE 50 mg PO DAILY #5 tablet 02/09/21 Allergies Allergy/AdvReac Type Severity Reaction Status Date / Time fluticasone propionate Allergy Unknown Verified 02/09/21 19:50 [From Flovent Diskus] methocarbamol [From Robaxin] Allergy Unknown Verified 02/09/21 19:50 Milk Containing Products Allergy Abdominal Verified 02/09/21 19:50 Pain Penicillins Allergy Unknown Verified 02/09/21 19:50 Review of Systems ROS Statement: Those systems with pertinent positive or pertinent negative responses have been documented in the HPI. ROS Other: All systems not noted in ROS Statement are negative. Past Medical History Past Medical History: Asthma, Cancer, Heart Failure, Diabetes Mellitus, Hyperlipidemia, Hypertension Additional Past Medical History / Comment(s): cervical CA, glaucoma (both eyes). pt has hypertrophic cardiomyopathy History of Any Multi-Drug Resistant Organisms: None Reported Past Surgical History: Heart Catheterization, Hysterectomy Additional Past Surgical History / Comment(s): cyst removed rt wrist. surgery- septum of heart shaved down and scar tissue removed. EZEKIEL. Open heart surgery 2006. Pacemaker placed February 20, 2019. Aortic Valve replacement 02/20/19. Iliac Stent right leg 02/12/19 Past Anesthesia/Blood Transfusion Reactions: No Reported Reaction Past Psychological History: No Psychological Hx Reported Smoking Status: Never smoker Past Alcohol Use History: None Reported Past Drug Use History: None Reported - Past Family History Father Family Medical History: Myocardial Infarction ([place]) Mother Family Medical History: AFIB, Cancer Additional Family Medical History / Comment(s): unknown type of CA General Exam - General Exam Comments Initial Comments: Patient appears to be in mild distress secondary to nausea and vomiting. Appears to be mildly dehydrated. Capillary refill is approximately 3 seconds. There is no mottling. Patient does appear to be somewhat pale. Limitations: no limitations General appearance: alert, in distress, obese Head exam: Present: atraumatic, normocephalic, normal inspection Eye exam: Present: normal appearance, PERRL, EOMI. Absent: scleral icterus, conjunctival injection, periorbital swelling ENT exam: Present: normal exam, normal oropharynx, mucous membranes moist. Absent: mucous membranes dry Neck exam: Present: normal inspection, full ROM. Absent: tenderness, meningismus, lymphadenopathy Respiratory exam: Present: normal lung sounds bilaterally. Absent: respiratory distress, wheezes, rales, rhonchi, stridor Cardiovascular Exam: Present: regular rate, normal rhythm, normal heart sounds. Absent: systolic murmur, diastolic murmur, rubs, gallop, clicks GI/Abdominal exam: Present: soft, hyperactive bowel sounds. Absent: distended, tenderness, guarding, rebound, rigid Extremities exam: Present: normal inspection, full ROM, normal capillary refill. Absent: tenderness, pedal edema, joint swelling, calf tenderness Back exam: Present: normal inspection Neurological exam: Present: alert, oriented X3, CN II-XII intact Psychiatric exam: Present: normal affect, normal mood Skin exam: Present: warm, dry, intact, pallor. Absent: rash, cyanosis, diaphoretic, erythema, urticaria, vesicles, petechiae, mottled, abrasion Course Vital Signs 06/25/21 06/25/21 06:54 08:36 Temperature 98.9 F Pulse Rate 82 88 Respiratory 16 20 Rate Blood Pressure 169/86 151/77 O2 Sat by Pulse 98 96 Oximetry - Reevaluation(s) Reevaluation #1: 06/25/21 08:40 Medical record is reviewed Symptoms are minimally improved, capillary refill less than 2 seconds, repeat abdominal examination is essentially benign aside from hyperactive bowel sounds Patient is informed of results and questions answered Patient in no distress Medical Decision Making - Medical Decision Making Patient presenting with vomiting and diarrhea. Consistent with gastroenteritis. There is no abdominal tenderness. We'll obtain basic labs, hydration, Accu- Chek, EKG was done in triage showing paced rhythm. We'll compare. We'll add on a troponin and lactic acid. Does not appear to be consistent with cardiopulmonary disease. COVID-19 test ordered as the patient is not vaccinated. Patient had COVID-19 in February 2021. Patient's COVID-19 test was positive. Lactic acid is elevated. Patient shows evidence of urinary tract infection. Patient will be admitted for IV hydration for dehydration, IV antibiotics. Gave given Rocephin here. Case was discussed in detail with Dr. Boyd from the hospitalist group. Patient will be admitted under his service. Patient had no irritative voiding. He wanted to hold the antibiotics. However the patient had already received the initial dose of to ceftriaxone. Patient stable for admission. Stool studies were added as the patient has had antibiotics within the last 3 months. Note that the patient had COVID-19 in February and is testing positive again today. - Lab Data Result diagrams: 06/25/21 07:24 06/25/21 07:24 Lab Results 06/25/21 06/25/21 06/25/21 Range/Units 07:08 07:24 07:24 WBC 15.5 H (3.8-10.6) k/uL RBC 4.35 (3.80-5.40) m/uL Hgb 12.9 (11.4-16.0) gm/dL Hct 38.1 (34.0-46.0) % MCV 87.5 (80.0-100.0) fL MCH 29.6 (25.0-35.0) pg MCHC 33.8 (31.0-37.0) g/dL RDW 14.3 (11.5-15.5) % Plt Count 180 (150-450) k/uL MPV 8.2 Neutrophils % 82 % Lymphocytes % 8 % Monocytes % 7 % Eosinophils % 2 % Basophils % 0 % Neutrophils # 12.6 H (1.3-7.7) k/uL Lymphocytes # 1.3 (1.0-4.8) k/uL Monocytes # 1.1 H (0-1.0) k/uL Eosinophils # 0.3 (0-0.7) k/uL Basophils # 0.0 (0-0.2) k/uL Sodium (137-145) mmol/L Potassium (3.5-5.1) mmol/L Chloride (98-107) mmol/L Carbon Dioxide (22-30) mmol/L Anion Gap mmol/L BUN (7-17) mg/dL Creatinine (0.52-1.04) mg/dL Est GFR (CKD-EPI)AfAm (>60 ml/min/1.73 sqM) Est GFR (CKD-EPI)NonAf (>60 ml/min/1.73 sqM) Glucose (74-99) mg/dL POC Glucose (mg/dL) 367 H (75-99) mg/dL POC Glu Activity Coordinator ID Denver Iverson Plasma Lactic Acid Juan Francisco (0.7-2.0) mmol/L Calcium (8.4-10.2) mg/dL Total Bilirubin (0.2-1.3) mg/dL AST (14-36) U/L ALT (4-34) U/L Alkaline Phosphatase (38-126) U/L Troponin I (0.000-0.034) ng/mL Total Protein (6.3-8.2) g/dL Albumin (3.5-5.0) g/dL Lipase (23-300) U/L Urine Color Yellow Urine Appearance Cloudy H (Clear) Urine pH 7.5 (5.0-8.0) Ur Specific [place] 1.022 (1.001-1.035) Urine Protein 3+ H (Negative) Urine Glucose (UA) 4+ H (Negative) Urine Ketones 2+ H (Negative) Urine Blood Negative (Negative) Urine Nitrite Negative (Negative) Urine Bilirubin Negative (Negative) Urine Urobilinogen <2.0 (<2.0) mg/dL Ur Leukocyte Esterase Large H (Negative) Urine WBC 68 H (0-5) /hpf Urine WBC Clumps Few H (None) /hpf Ur Squamous Epith Cells 5 H (0-4) /hpf Urine Bacteria Many H (None) /hpf Urine Mucus Rare H (None) /hpf Coronavirus (PCR) (Not Detectd) 06/25/21 06/25/21 06/25/21 Range/Units 07:24 07:24 07:24 WBC (3.8-10.6) k/uL RBC (3.80-5.40) m/uL Hgb (11.4-16.0) gm/dL Hct (34.0-46.0) % MCV (80.0-100.0) fL MCH (25.0-35.0) pg MCHC (31.0-37.0) g/dL RDW (11.5-15.5) % Plt Count (150-450) k/uL MPV Neutrophils % % Lymphocytes % % Monocytes % % Eosinophils % % Basophils % % Neutrophils # (1.3-7.7) k/uL Lymphocytes # (1.0-4.8) k/uL Monocytes # (0-1.0) k/uL Eosinophils # (0-0.7) k/uL Basophils # (0-0.2) k/uL Sodium 136 L (137-145) mmol/L Potassium 4.3 (3.5-5.1) mmol/L Chloride 102 (98-107) mmol/L Carbon Dioxide 20 L (22-30) mmol/L Anion Gap 14 mmol/L BUN 28 H (7-17) mg/dL Creatinine 1.02 (0.52-1.04) mg/dL Est GFR (CKD-EPI)AfAm 71 (>60 ml/min/1.73 sqM) Est GFR (CKD-EPI)NonAf 62 (>60 ml/min/1.73 sqM) Glucose 402 H (74-99) mg/dL POC Glucose (mg/dL) (75-99) mg/dL POC Glu Activity Coordinator ID Plasma Lactic Acid Juan Francisco 3.1 H* (0.7-2.0) mmol/L Calcium 10.1 (8.4-10.2) mg/dL Total Bilirubin 0.9 (0.2-1.3) mg/dL AST 24 (14-36) U/L ALT 21 (4-34) U/L Alkaline Phosphatase 78 (38-126) U/L Troponin I (0.000-0.034) ng/mL Total Protein 7.9 (6.3-8.2) g/dL Albumin 4.6 (3.5-5.0) g/dL Lipase 110 (23-300) U/L Urine Color Urine Appearance (Clear) Urine pH (5.0-8.0) Ur Specific [place] (1.001-1.035) Urine Protein (Negative) Urine Glucose (UA) (Negative) Urine Ketones (Negative) Urine Blood (Negative) Urine Nitrite (Negative) Urine Bilirubin (Negative) Urine Urobilinogen (<2.0) mg/dL Ur Leukocyte Esterase (Negative) Urine WBC (0-5) /hpf Urine WBC Clumps (None) /hpf Ur Squamous Epith Cells (0-4) /hpf Urine Bacteria (None) /hpf Urine Mucus (None) /hpf Coronavirus (PCR) Detected A (Not Detectd) 06/25/21 06/25/21 Range/Units 07:24 08:34 WBC (3.8-10.6) k/uL RBC (3.80-5.40) m/uL Hgb (11.4-16.0) gm/dL Hct (34.0-46.0) % MCV (80.0-100.0) fL MCH (25.0-35.0) pg MCHC (31.0-37.0) g/dL RDW (11.5-15.5) % Plt Count (150-450) k/uL MPV Neutrophils % % Lymphocytes % % Monocytes % % Eosinophils % % Basophils % % Neutrophils # (1.3-7.7) k/uL Lymphocytes # (1.0-4.8) k/uL Monocytes # (0-1.0) k/uL Eosinophils # (0-0.7) k/uL Basophils # (0-0.2) k/uL Sodium (137-145) mmol/L Potassium (3.5-5.1) mmol/L Chloride (98-107) mmol/L Carbon Dioxide (22-30) mmol/L Anion Gap mmol/L BUN (7-17) mg/dL Creatinine (0.52-1.04) mg/dL Est GFR (CKD-EPI)AfAm (>60 ml/min/1.73 sqM) Est GFR (CKD-EPI)NonAf (>60 ml/min/1.73 sqM) Glucose (74-99) mg/dL POC Glucose (mg/dL) 382 H (75-99) mg/dL POC Glu Activity Coordinator ID Abel Rosa Plasma Lactic Acid Juan Francisco (0.7-2.0) mmol/L Calcium (8.4-10.2) mg/dL Total Bilirubin (0.2-1.3) mg/dL AST (14-36) U/L ALT (4-34) U/L Alkaline Phosphatase (38-126) U/L Troponin I <0.012 (0.000-0.034) ng/mL Total Protein (6.3-8.2) g/dL Albumin (3.5-5.0) g/dL Lipase (23-300) U/L Urine Color Urine Appearance (Clear) Urine pH (5.0-8.0) Ur Specific [place] (1.001-1.035) Urine Protein (Negative) Urine Glucose (UA) (Negative) Urine Ketones (Negative) Urine Blood (Negative) Urine Nitrite (Negative) Urine Bilirubin (Negative) Urine Urobilinogen (<2.0) mg/dL Ur Leukocyte Esterase (Negative) Urine WBC (0-5) /hpf Urine WBC Clumps (None) /hpf Ur Squamous Epith Cells (0-4) /hpf Urine Bacteria (None) /hpf Urine Mucus (None) /hpf Coronavirus (PCR) (Not Detectd) - EKG Data -: EKG Interpreted by Me (ED attending physician) EKG Comments: EKG shows paced rhythm with a rate of 89. No evidence of acute ST-T wave changes. Left axis deviation. VA interval 130 ms. To the intervals are reviewed to include QRS duration which is 147 ms. There is no change from the previous study from October 2019 Disposition Clinical Impression: Dehydration, COVID-19, Uncontrolled type 2 diabetes mellitus, Urine abnormality, Vomiting and diarrhea Disposition: ADMITTED IP TO THIS HOSP Referrals: Jaylen Art MD [Primary Care Provider] - 1-2 days Time of Disposition: 08:56
[2021-06-25 07:18] LABS: Glucose,Whole Blood 367 mg/dL (75-99)
[2021-06-25 07:45] LABS: Basophils % (A) 0 %; Eosinophils # (A) 0.3 k/uL (0-0.7); Eosinophils % (A) 2 %; HCT 38.1 % (34.0-46.0); HGB 12.9 gm/dL (11.4-16.0); Lymphocytes # (A) 1.3 k/uL (1.0-4.8); Lymphocytes % (A) 8 %; MCH 29.6 pg (25.0-35.0); MCHC 33.8 g/dL (31.0-37.0); MCV 87.5 fL (80.0-100.0); Mean Platelet Volume 8.2; Monocytes # (A) 1.1 k/uL (0-1.0); Monocytes % (A) 7 %; Neutrophils # (A) 12.6 k/uL (1.3-7.7); Neutrophils % (A) 82 %; Platelet Count 180 k/uL (150-450); RBC 4.35 m/uL (3.80-5.40); RDW 14.3 % (11.5-15.5); WBC 15.5 k/uL (3.8-10.6)
[2021-06-25 07:58] LABS: Albumin 4.6 g/dL (3.5-5.0); Calcium 10.1 mg/dL (8.4-10.2); Potassium 4.3 mmol/L (3.5-5.1); Total Bilirubin 0.9 mg/dL (0.2-1.3); Total Protein 7.9 g/dL (6.3-8.2)
[2021-06-25 08:15] LABS: Appearance,Urine Cloudy (Clear); Bacteria,Urine Many /hpf; Bilirubin,Urine Negative (Negative); Blood,Urine Negative (Negative); Color,Urine Yellow; Glucose,Urine (UA) 4+ (Negative); Leukocyte Esterase,Urine Large (Negative); Mucus,Urine Rare /hpf; Nitrite,Urine Negative (Negative); PH, Urine 7.5 (5.0-8.0); Protein,Urine 3+ (Negative); Specific Gravity,Urine 1.022 (1.001-1.035); Squamous Epithelial Cell,Urine 5 /hpf (0-4); Urobilinogen,Urine <2.0 mg/dL (<2.0); WBC,Urine 68 /hpf (0-5)
[2021-06-25 08:17] LABS: Ketones,Urine 2+ (Negative)
[2021-06-25 08:38] LABS: Glucose,Whole Blood 382 mg/dL (75-99)
[2021-06-25] MEDS ORDERED: cefTRIAXone IN SWFI 1,000 MG/10 ML SYRINGE IVP STA ×2 (08:39→09:01)
[2021-06-25] MEDS: SODIUM CHLORIDE 0.9% 1,000 ML IV SCH ×3 (08:55→20:51)
[2021-06-25] MEDS ORDERED: ONDANSETRON 4 MG/2 ML VIAL IVP PRN (08:56)
[2021-06-25] MEDS ORDERED: ACETAMINOPHEN TAB 325 MG TAB PO PRN (08:56)
[2021-06-25] MEDS ORDERED: NALOXONE 0.4 MG/ML 1 ML VIAL IV PRN (08:56)
--- NOTE | 2021-06-25 10:28 | P.HPIM ---
History of Present Illness Patient is a 55-year-old female came in with the episodes of nausea vomiting diarrhea for last 4-5 hours. Patient had vomited multiple times patient does have lactic acidosis patient is diagnosed with COVID-19. Patient denied any s ignificant abdominal pain denied any coffee-ground emesis. Patient denied any dysuria suprapubic pain patient was a treated multiple times with the antibiotics for urinary tract infection. Urine although is bit abnormal with a leukocyte esterase of the nitrate is negative except contaminated urine sample with squamous epithelial cells. He does have elevated blood sugars of 402 patient blood sugars at home are in 200s and 300s and lately her blood sugars were not under control as per the patient. REVIEW OF SYSTEMS: CONSTITUTIONAL: No fever. HEENT: No recent visual problems or hearing problems. Denied any sore throat. CARDIOVASCULAR: No chest pain, orthopnea, PND, no palpitations, no syncope. PULMONARY: No shortness of breath, no cough, no hemoptysis. GASTROINTESTINAL: As mentioned in HPI NEUROLOGICAL: No headaches, no weakness, no numbness. HEMATOLOGICAL: Denies any bleeding or petechiae. GENITOURINARY: Denies any burning micturition, frequency, or urgency. MUSCULOSKELETAL/RHEUMATOLOGICAL: Denies any joint pain, swelling, or any muscle pain. ENDOCRINE: Denies any polyuria or polydipsia. The rest of the 14-point review of systems is negative. PHYSICAL EXAMINATION: GENERAL: The patient is alert and oriented x3, not in any acute distress. Well developed, well nourished. HEENT: Pupils are round and equally reacting to light. EOMI. No scleral icterus. No conjunctival pallor. Normocephalic, atraumatic. No pharyngeal erythema. No thyromegaly. CARDIOVASCULAR: S1 and S2 present. No murmurs, rubs, or gallops. PULMONARY: Chest is clear to auscultation, no wheezing or crackles. ABDOMEN: Soft, nontender, nondistended, normoactive bowel sounds. No palpable organomegaly. MUSCULOSKELETAL: No joint swelling or deformity. EXTREMITIES: No cyanosis, clubbing, or pedal edema. NEUROLOGICAL: Gross neurological examination did not reveal any focal deficits. SKIN: No rashes. Assessment and plan -Viral gastroenteritis can be secondary to COVID-19 as well. Patient the doesn't have any other symptoms or respiratory symptoms from COVID-19. Patient will be continued on IV fluids. was started on IV Protonix as well - lactic acidosis secondary to viral infection and severe dehydration from nausea vomiting. -Asymptomatic bacteriuria will not require any antibiotics at this time -Mild acute renal failure secondary to dehydration IV fluids as mentioned above -Uncontrolled elevated blood sugars patient was started on home regimen along with sliding scale upon discharge will figure out her home regimen her the medications were not very Saturday at once his medications are atenolol due to the medication reconciliation. -Anion gap metabolic acidosis secondary to lactic acidosis from intravascular depletion from severe nausea vomiting. -Asthma without any acute exacerbation -Hyperlipidemia -Hypertension DVT prophylaxis: Lovenox if he ends up staying in the hospital for longer than today Past Medical History Past Medical History: Asthma, Cancer, Heart Failure, Diabetes Mellitus, Hyperlipidemia, Hypertension Additional Past Medical History / Comment(s): cervical CA, glaucoma (both eyes). pt has hypertrophic cardiomyopathy History of Any Multi-Drug Resistant Organisms: None Reported Past Surgical History: Heart Catheterization, Hysterectomy Additional Past Surgical History / Comment(s): cyst removed rt wrist. surgery- septum of heart shaved down and scar tissue removed. EZEKIEL. Open heart surgery 2006. Pacemaker placed February 20, 2019. Aortic Valve replacement 02/20/19. Iliac Stent right leg 02/12/19 Past Anesthesia/Blood Transfusion Reactions: No Reported Reaction Past Psychological History: No Psychological Hx Reported Smoking Status: Never smoker Past Alcohol Use History: None Reported Past Drug Use History: None Reported - Past Family History Father Family Medical History: Myocardial Infarction ([place]) Mother Family Medical History: AFIB, Cancer Additional Family Medical History / Comment(s): unknown type of CA Medications and Allergies Home Medications Medication Instructions Recorded Confirmed Type Cetirizine HCl [Zyrtec] 10 mg PO HS 01/23/14 10/29/19 History Dorzolamide HCl/Timolol Maleat 1 drop BOTH EYES BID 01/23/14 10/29/19 History [Cosopt Eye Drops] Omeprazole [PriLOSEC] 20 mg PO DAILY 01/23/14 10/29/19 History glyBURIDE/METFORMIN HCL 1 tab PO BID 01/23/14 10/29/19 History [Glucovance 5-500 mg Tablet] Ergocalciferol [Vitamin D2 50,000 unit PO TUFR 07/22/17 10/29/19 History (DRISDOL)] Rosuvastatin Calcium [Crestor] 10 mg PO Q48H 07/22/17 10/29/19 History amLODIPine [Norvasc] 10 mg PO DAILY 07/22/17 10/29/19 History Magnesium Oxide 400 mg PO BID 08/22/18 10/29/19 History Vit C/E/Zn/Coppr/Lutein/Zeaxan 1 cap PO BID 08/22/18 10/29/19 History [Preservision Areds 2 Softgel] Aspirin EC [Ecotrin Low Dose] 81 mg PO DAILY 03/19/19 10/29/19 History Cranberry 4200mg 2 tab PO BID 03/19/19 10/29/19 History Metoprolol Tartrate [Lopressor] 12.5 mg PO BID 03/19/19 10/29/19 History Allopurinol [Zyloprim] 100 mg PO DAILY 10/29/19 10/29/19 History Apixaban [Eliquis] 5 mg PO BID 10/29/19 10/29/19 History hydrALAZINE HCL 25 mg PO BID 10/29/19 10/29/19 History sitaGLIPtin PHOSPHATE [Januvia] 100 mg PO DAILY 10/29/19 10/29/19 History Acetaminophen Tab [Tylenol] 650 mg PO Q6HR PRN #30 tab 11/03/19 Rx Cefuroxime Axetil [Ceftin] 500 mg PO BID 10 Days #20 tab 11/03/19 Rx Nitrofurantoin Monohyd/M-Cryst 100 mg PO Q12HR #14 cap 09/16/20 Rx [Macrobid] Famotidine [Pepcid] 20 mg PO DAILY #5 tablet 02/09/21 Rx predniSONE 50 mg PO DAILY #5 tablet 02/09/21 Rx Allergies Allergy/AdvReac Type Severity Reaction Status Date / Time fluticasone propionate Allergy Unknown Verified 02/09/21 19:50 [From Flovent Diskus] methocarbamol [From Robaxin] Allergy Unknown Verified 02/09/21 19:50 Milk Containing Products Allergy Abdominal Verified 02/09/21 19:50 Pain Penicillins Allergy Unknown Verified 02/09/21 19:50 Physical Exam Vitals: Vital Signs Temp Pulse Resp BP Pulse Ox 06/25/21 08:36 88 20 151/77 96 02/27/22 06:54 98.9 F 82 16 169/86 98 Intake and Output 06/24/21 06/25/21 06/25/21 22:59 06:59 14:59 Other: Voiding Method Toilet Weight 74.843 kg Results CBC & Chem 7: 06/25/21 07:24 06/25/21 07:24 Labs: Abnormal Lab Results - Last 24 Hours (Table) 06/25/21 06/25/21 06/25/21 Range/Units 07:08 07:24 07:24 WBC 15.5 H (3.8-10.6) k/uL Neutrophils # 12.6 H (1.3-7.7) k/uL Monocytes # 1.1 H (0-1.0) k/uL Sodium (137-145) mmol/L Carbon Dioxide (22-30) mmol/L BUN (7-17) mg/dL Glucose (74-99) mg/dL POC Glucose (mg/dL) 367 H (75-99) mg/dL Plasma Lactic Acid [place] (0.7-2.0) mmol/L Urine Appearance Cloudy H (Clear) Urine Protein 3+ H (Negative) Urine Glucose (UA) 4+ H (Negative) Urine Ketones 2+ H (Negative) Ur Leukocyte Esterase Large H (Negative) Urine WBC 68 H (0-5) /hpf Urine WBC Clumps Few H (None) /hpf Ur Squamous Epith Cells 5 H (0-4) /hpf Urine Bacteria Many H (None) /hpf Urine Mucus Rare H (None) /hpf Coronavirus (PCR) (Not Detectd) 06/25/21 06/25/21 06/25/21 Range/Units 07:24 07:24 07:24 WBC (3.8-10.6) k/uL Neutrophils # (1.3-7.7) k/uL Monocytes # (0-1.0) k/uL Sodium 136 L (137-145) mmol/L Carbon Dioxide 20 L (22-30) mmol/L BUN 28 H (7-17) mg/dL Glucose 402 H (74-99) mg/dL POC Glucose (mg/dL) (75-99) mg/dL Plasma Lactic Acid [place] 3.1 H* (0.7-2.0) mmol/L Urine Appearance (Clear) Urine Protein (Negative) Urine Glucose (UA) (Negative) Urine Ketones (Negative) Ur Leukocyte Esterase (Negative) Urine WBC (0-5) /hpf Urine WBC Clumps (None) /hpf Ur Squamous Epith Cells (0-4) /hpf Urine Bacteria (None) /hpf Urine Mucus (None) /hpf Coronavirus (PCR) Detected A (Not Detectd) 06/25/21 Range/Units 08:34 WBC (3.8-10.6) k/uL Neutrophils # (1.3-7.7) k/uL Monocytes # (0-1.0) k/uL Sodium (137-145) mmol/L Carbon Dioxide (22-30) mmol/L BUN (7-17) mg/dL Glucose (74-99) mg/dL POC Glucose (mg/dL) 382 H (75-99) mg/dL Plasma Lactic Acid [place] (0.7-2.0) mmol/L Urine Appearance (Clear) Urine Protein (Negative) Urine Glucose (UA) (Negative) Urine Ketones (Negative) Ur Leukocyte Esterase (Negative) Urine WBC (0-5) /hpf Urine WBC Clumps (None) /hpf Ur Squamous Epith Cells (0-4) /hpf Urine Bacteria (None) /hpf Urine Mucus (None) /hpf Coronavirus (PCR) (Not Detectd)
[2021-06-25] MEDS: PANTOPRAZOLE 40 MG/10 ML VIAL IVP SCH (11:41)
--- NOTE | 2021-06-25 11:45 | XR ---
EXAMINATION TYPE: XR abdomen acute w cxr DATE OF EXAM: 06/25/2021 COMPARISON: CT 10/31/2019 HISTORY: Nausea and vomiting TECHNIQUE: Supine, upright, and frontal chest views of the abdomen and chest are obtained. FINDINGS: Degenerative disc changes are present in the visualized spine. Chest x-ray shows post medi an sternotomy change, there is a generator in left pectoral region, leads in the right atrium, right ventricle and coronary sinus. Right hemidiaphragm is mildly elevated. No evident airspace disease, pn eumothorax, or pleural effusion. There is no evidence for pneumoperitoneum. The bowel gas pattern is unremarkable as there is air throughout nondilated small and large bowel. No sizeable air fluid levels. No mass effects are seen. No unusual calcifications. Vascular calcifications are present within the pelvis. There is a right-s ided iliac stent, surgical clips are also present. IMPRESSION: No acute abnormality is evident
[2021-06-25 13:54] LABS: Glucose,Whole Blood 372 mg/dL (75-99)
[2021-06-25] MEDS: allopurinoL 100 MG TAB PO SCH (16:00)
[2021-06-25 18:03] LABS: Glucose,Whole Blood 246 mg/dL (75-99)
[2021-06-25] MEDS: FORMOTEROL FUMARATE 20 MCG/2 ML NEBU INHALATION SCH (20:32)
[2021-06-25 20:39] LABS: Glucose,Whole Blood 225 mg/dL (75-99)
[2021-06-25] MEDS: DORZOLAMIDE-TIMOLOL 2.23%/0.68 10ML BTL BOTH EYES SCH (20:49)
[2021-06-25] MEDS: APIXABAN 5 MG TAB PO SCH (20:50)
[2021-06-25] MEDS: METOPROLOL TARTRATE 25 MG TAB PO SCH (20:50)
[2021-06-25] MEDS: MAGNESIUM OXIDE 400 MG TAB PO SCH (20:50)
[2021-06-25] MEDS: VIT A,C & E-LUTEIN-MINERALS 1 EACH TAB PO SCH (20:50)
[2021-06-25] MEDS ORDERED: LORATADINE 10 MG TAB PO SCH (21:00)
[2021-06-25] MEDS ORDERED: LATANOPROST 0.005% OPHTH DROPS 2.5 ML BTL BOTH EYES SCH (21:00)
[2021-06-25] MEDS ORDERED: INSULIN DETEMIR (LEVEMIR) 100 UNIT/ML SYR SQ SCH (21:00)
[2021-06-25] MEDS ORDERED: ATORVASTATIN 10 MG TAB PO SCH (21:00)
[2021-06-25 23:14] LABS: Glucose,Whole Blood 185 mg/dL (75-99)
[2021-06-26 02:04] LABS: Glucose,Whole Blood 225 mg/dL (75-99)
[2021-06-26 02:19] VITALS: PULSE 65
[2021-06-26] MEDS: SODIUM CHLORIDE 0.9% 1,000 ML IV SCH (03:57)
[2021-06-26 07:59] LABS: Glucose,Whole Blood 182 mg/dL (75-99)
[2021-06-26] MEDS: allopurinoL 100 MG TAB PO SCH (08:00)
[2021-06-26] MEDS: VIT A,C & E-LUTEIN-MINERALS 1 EACH TAB PO SCH (08:00)
[2021-06-26] MEDS: METOPROLOL TARTRATE 25 MG TAB PO SCH (08:00)
[2021-06-26] MEDS: MAGNESIUM OXIDE 400 MG TAB PO SCH (08:00)
[2021-06-26] MEDS: PANTOPRAZOLE 40 MG/10 ML VIAL IVP SCH (08:00)
[2021-06-26] MEDS: APIXABAN 5 MG TAB PO SCH (08:00)
[2021-06-26] MEDS: DORZOLAMIDE-TIMOLOL 2.23%/0.68 10ML BTL BOTH EYES SCH (08:01)
[2021-06-26] MEDS ORDERED: NON FORMULARY DRUG (Omeprazole [Prilosec] 20 MG Capsule.Dr) PO SCH (09:00)
[2021-06-26] MEDS ORDERED: amLODIPine 10 MG TAB PO SCH (09:00)
[2021-06-26] MEDS ORDERED: LINAGLIPTIN 5 MG TABLET PO SCH (09:00)
[2021-06-26] MEDS ORDERED: CRANBERRY PO SCH (09:00)
[2021-06-26] MEDS ORDERED: ASPIRIN 81 MG PO SCH (09:00)
[2021-06-26] MEDS ORDERED: FERROUS SULFATE 325 MG TAB PO SCH (09:00)
[2021-06-26] MEDS: FORMOTEROL FUMARATE 20 MCG/2 ML NEBU INHALATION SCH (09:20)
[2021-06-26] MEDS ORDERED: SODIUM CHLORIDE 0.9% 1,000 ML IV SCH (09:45)
[2021-06-26] MEDS ORDERED: LOSARTAN 25 MG TAB PO SCH (09:45)
[2021-06-26 10:35] LABS: Basophils % (A) 0 %; Eosinophils # (A) 0.2 k/uL (0-0.7); Eosinophils % (A) 4 %; HCT 34.5 % (34.0-46.0); Hypochromasia Slight; Lymphocytes # (A) 2.4 k/uL (1.0-4.8); Lymphocytes % (A) 38 %; MCH 29.5 pg (25.0-35.0); Mean Platelet Volume 8.3; Monocytes # (A) 0.3 k/uL (0-1.0); Monocytes % (A) 5 %; Neutrophils # (A) 3.2 k/uL (1.3-7.7); Neutrophils % (A) 51 %; Platelet Count 148 k/uL (150-450); RBC 3.75 m/uL (3.80-5.40); RDW 14.5 % (11.5-15.5); WBC 6.3 k/uL (3.8-10.6)
[2021-06-26 10:48] LABS: African American GFR (CKD) >90 (>60 ml/min/1.73 sqM); Anion Gap 11 mmol/L; Blood Urea Nitrogen 18 mg/dL (7-17); Calcium 9.2 mg/dL (8.4-10.2); Carbon Dioxide 20 mmol/L (22-30); Chloride 107 mmol/L (98-107); Glucose 278 mg/dL (74-99); Non-African American GFR(CKD) 87 (>60 ml/min/1.73 sqM); Potassium 3.7 mmol/L (3.5-5.1); Sodium 138 mmol/L (137-145)
[2021-06-26 12:08] LABS: Glucose,Whole Blood 287 mg/dL (75-99)
[2021-06-26] MEDS: Salmeterol 50 mcg INHALER INHALATION SCH ×2 (12:54→20:04)
[2021-06-26 15:22] VITALS: BP 149/76; RESP 17; TEMP 97.9
[2021-06-26 17:36] LABS: Glucose,Whole Blood 317 mg/dL (75-99)
[2021-06-27 13:37] LABS: Coronavirus SARS CoV-2 Not Detected (Not Detected)
--- NOTE | 2021-06-27 21:56 | P.DS ---
Providers Date of admission: 06/25/21 09:23 Attending physician: Mike Cho Primary care [facility] Course: Final Diagnosis -Nausea/vomiting/diarrhea possibly viral gastroenteritis from acute COVID 19 infection vs food poisoning from on saturday -Covid 19 positive with no respiratory symptoms, on room air, pt was positive for covid 3 months ago also. -Lactic acidosis secondary to viral infection and severe dehydration from nausea vomiting. -Asymptomatic bacteriuria will not require any antibiotics at this time -Mild acute renal failure secondary to dehydration IV fluids as mentioned above -Uncontrolled elevated blood sugars patient was started on home regimen along with sliding scale -Anion gap metabolic acidosis secondary to lactic acidosis from intravascular depletion from severe nausea vomiting. -Asthma without any acute exacerbation -Hyperlipidemia -Hypertension -History pacemaker -History of coronary artery disease s/p bypass in 2006 -History of aortic valve replaced 2018 -History of peripheral vascular disease status post stenting Discharge Disposition Patient stable for discharge from a medical standpoint. Symptoms have improved and WBC has normalized. Hospital Course This is a pleasant 55 year old female who presents to the with symptoms of severe nausea and vomiting throughout saturday evening, about continuous for 5 hours. Per patient she was at a earlier that day with her mother who is in her 80s and her mother also had similar symptoms but more mild. Patient states they ate chicken at the . No reports of blood in the stool, or coffee ground emesis. Diarrhea was watery and patient was vomiting up stomach contents. Otherwise on fever or chills, was positive for covid about 3 months ago as well and had fully recovered per patient. Patient denies dysuria, frequency, urgency, suprapubic pain. Denies chest pain, cough, shortness of breath. Patient follows with Dr Art in the office, also follows with nephrology and urology. Past medical history significant for asthma, cervical cancer, heart failure, diabetes mellitus, hyperlipidemia, hypertension, glaucoma, hypertrophic cardiomyopathy, open heart in 2006, aortic valve replaced in 2019, peripheral vascular disease status post stenting. Patient admitted to the hospital for monitoring, IV fluids at 130 cc per hour. Labs on admission show WBC 15.5, sodium 136, CO2 20, BUN 28, creat 1.02, glucose 400s, lactic acid 3.1, troponin negative, urinalysis questionable for infection, occult positive, lactoferrin positive, covid negative, cdif negative. Acute abdomen series reveals no acute abnormality evident. 06/26/2021 Patient evaluated today resting in bed. 2 bowel movements this am both soft, not liquid. Denies blood in the stool. No further episodes of vomiting, has mild nausea. Otherwise denies dysuria, urgency, frequency, no abdominal pain. Denies chest pain, cough, shortness of breath. Ambulating without difficulty. Pt has a fractured right knee that she is following with Dr Renae for, and is wearing a knee brace. Was supposed to see him in the office today for repeat xrays. Ok for follow up in 5 days after quarantine as long as symptoms are improving. Urine culture did finalize to proteus however clinically patient improved, WBC 6.4, hgb 11, sodium 138, potassium 3.7, blood glucose in the 200s on sliding scale. Will give patient lantus on discharge for tighter glycemic control. Vitals stable she is afebrile, heart rate 65, blood pressure 149/76, 97% room air. Lungs are clear, s1 s2 auscultated, normoactive bowel sounds, abdomen is soft and nontender, focal neurological exam is negative. Patient cleared for discharge f/u with PCP. Please see medication reconciliation for a list of current medications. Thank you for allowing us to participate in the care of this patient. Patient Condition at Discharge: Good Plan - Discharge Summary Discharge Rx Participant: Yes New Discharge Prescriptions: New Omeprazole 20 mg PO DAILY #30 tab Losartan [Cozaar] 50 mg PO DAILY #30 tab glyBURIDE [Diabeta] 5 mg PO AC-BID #60 tablet Insulin Glargine,Hum.rec.anlog [Lantus Solostar Pen] 15 unit SQ HS #4 each Acetaminophen Tab [Tylenol] 650 mg PO Q6HR PRN tab PRN Reason: Mild Pain Or Fever > 100.5 Ondansetron Odt [Zofran Odt] 4 mg PO Q8HR PRN 3 Days #9 tab PRN Reason: Nausea Continue Dorzolamide HCl/Timolol Maleat [Cosopt Eye Drops] 1 drop BOTH EYES BID Cetirizine HCl [Zyrtec] 10 mg PO HS Omeprazole [PriLOSEC] 20 mg PO DAILY Ergocalciferol [Vitamin D2 (DRISDOL)] 50,000 unit PO Q30D Rosuvastatin Calcium [Crestor] 5 mg PO HS Magnesium Oxide 400 mg PO BID Vit C/E/Zn/Coppr/Lutein/Zeaxan [Preservision Areds 2 Softgel] 1 cap PO BID Aspirin EC [Ecotrin Low Dose] 81 mg PO DAILY Metoprolol Tartrate [Lopressor] 25 mg PO BID sitaGLIPtin PHOSPHATE [Januvia] 100 mg PO DAILY hydrALAZINE HCL 25 mg PO BID Apixaban [Eliquis] 5 mg PO BID Allopurinol [Zyloprim] 100 mg PO DAILY amLODIPine [Norvasc] 10 mg PO DAILY Ferrous Sulfate [Iron (65 MG Elemental)] 325 mg PO DAILY Latanoprost Ophth [Xalatan 0.005%] 1 drop BOTH EYES HS Salmeterol 50 mcg [Serevent Diskus] 1 puff INHALATION RT-BID Cranberry 2500 2,500 mg PO DAILY calcitrioL [Rocaltrol] 0.25 mcg PO SA Furosemide [Lasix] 20 mg PO DAILY Discontinued glyBURIDE/METFORMIN HCL [Glucovance 5-500 mg Tablet] 1 tab PO BID Losartan Potassium [Cozaar] 25 mg PO DAILY Discharge Medication List Cetirizine HCl [Zyrtec] 10 mg PO HS 01/23/14 [History] Dorzolamide HCl/Timolol Maleat [Cosopt Eye Drops] 1 drop BOTH EYES BID 01/23/14 [History] Omeprazole [PriLOSEC] 20 mg PO DAILY 01/23/14 [History] Ergocalciferol [Vitamin D2 (DRISDOL)] 50,000 unit PO Q30D 07/22/17 [History] Rosuvastatin Calcium [Crestor] 5 mg PO HS 07/22/17 [History] Magnesium Oxide 400 mg PO BID 08/22/18 [History] Vit C/E/Zn/Coppr/Lutein/Zeaxan [Preservision Areds 2 Softgel] 1 cap PO BID 08/22/18 [History] Aspirin EC [Ecotrin Low Dose] 81 mg PO DAILY 03/19/19 [History] Metoprolol Tartrate [Lopressor] 25 mg PO BID 03/19/19 [History] Allopurinol [Zyloprim] 100 mg PO DAILY 10/29/19 [History] Apixaban [Eliquis] 5 mg PO BID 10/29/19 [History] hydrALAZINE HCL 25 mg PO BID 10/29/19 [History] sitaGLIPtin PHOSPHATE [Januvia] 100 mg PO DAILY 10/29/19 [History] Cranberry 2500 2,500 mg PO DAILY 06/25/21 [History] Ferrous Sulfate [Iron (65 MG Elemental)] 325 mg PO DAILY 06/25/21 [History] Furosemide [Lasix] 20 mg PO DAILY 06/25/21 [History] Latanoprost Ophth [Xalatan 0.005%] 1 drop BOTH EYES HS 06/25/21 [History] Salmeterol 50 mcg [Serevent Diskus] 1 puff INHALATION RT-BID 06/25/21 [History] amLODIPine [Norvasc] 10 mg PO DAILY 06/25/21 [History] calcitrioL [Rocaltrol] 0.25 mcg PO SA 06/25/21 [History] Acetaminophen Tab [Tylenol] 650 mg PO Q6HR PRN tab 06/26/21 [Rx] Insulin Glargine,Hum.rec.anlog [Lantus Solostar Pen] 15 unit SQ HS #4 each 06/26/21 [Rx] Losartan [Cozaar] 50 mg PO DAILY #30 tab 06/26/21 [Rx] Omeprazole 20 mg PO DAILY #30 tab 06/26/21 [Rx] Ondansetron Odt [Zofran Odt] 4 mg PO Q8HR PRN 3 Days #9 tab 06/26/21 [Rx] glyBURIDE [Diabeta] 5 mg PO AC-BID #60 tablet 06/26/21 [Rx] Follow up Appointment(s)/Referral(s): Jaylen Art MD [Primary Care Provider] - 1-2 days Ruel Renae MD [STAFF PHYSICIAN] - 1 Week Ambulatory/Diagnostic Orders: Basic Metabolic Panel [LAB.AMB] Location: None Selected Patient Instructions/Handouts: Acute Diarrhea (ED) Activity/Diet/Wound Care/Special Instructions: Quarantine for 5 days, if no fever, symptoms resolving than ok to go to normal doctor appointments. Discharge Disposition: HOME SELF-CARE
[2021-06-28] MEDS ORDERED: ERGOCALCIFEROL 1,250 MCG (50,000 IU) CAPSULE PO SCH (09:00)
== END 2021-06-26 18:26 | disposition home or self-care (01) ==
LOC: EC 06:51 → 6NMEDSUR 09:23
PROVIDERS: ADMIT Internal Medicine; ATTEND Internal Medicine
DX: U07.1 COVID-19 (principal); E86.0 Dehydration; N17.9 Acute kidney failure, unspecified; E87.2 Acidosis; E11.65 Type 2 diabetes mellitus with hyperglycemia; R11.2 Nausea with vomiting, unspecified; R19.7 Diarrhea, unspecified; R82.71 Bacteriuria; I11.0 Hypertensive heart disease with heart failure; I50.9 Heart failure, unspecified; H40.9 Unspecified glaucoma; I42.2 Other hypertrophic cardiomyopathy; I25.10 Atherosclerotic heart disease of native coronary artery without angina pectoris; E78.5 Hyperlipidemia, unspecified; J45.909 Unspecified asthma, uncomplicated; E11.51 Type 2 diabetes mellitus with diabetic peripheral angiopathy without gangrene; Z79.82 Long term (current) use of aspirin; Z79.01 Long term (current) use of anticoagulants; Z79.84 Long term (current) use of oral hypoglycemic drugs; Z79.899 Other long term (current) drug therapy; Z88.0 Allergy status to penicillin; Z88.8 Allergy status to other drugs, medicaments and biological substances; Z91.011 Allergy to milk products; Z95.1 Presence of aortocoronary bypass graft; Z95.2 Presence of prosthetic heart valve; Z95.820 Peripheral vascular angioplasty status with implants and grafts; Z85.41 Personal history of malignant neoplasm of cervix uteri; Z90.710 Acquired absence of both cervix and uterus; Z95.0 Presence of cardiac pacemaker; Z86.16 Personal history of COVID-19; Z98.890 Other specified postprocedural states; Z82.49 Family history of ischemic heart disease and other diseases of the circulatory system; Z80.9 Family history of malignant neoplasm, unspecified
CPT/HCPCS: 96376; 96361 ×3; 96374; 96375; 99285; 36415; 93005; 80053; 80048; 83605; 83690; 84484; 85025 ×2; 82272; 81001; 87040; 87324; 87086; 87045; 83630; 87077; 87186; 87046; 87635; 74022; G0378 ×2; U0003; U0005; J2405; J0696; C9113 ×2

== ENCOUNTER → 2022-08-29 | Outpatient (CLI) | payer BC ==
--- NOTE | 2022-08-29 18:44 | BD ---
EXAMINATION TYPE: Axial Bone Density DATE OF EXAM: 08/29/2022 CLINICAL HISTORY: 56 years old Female. ICD-10 CODE: Z78.0 POST MENOPAUSAL Height: 5 ft Weight: 179 FRAX RISK QUESTIONS: Alcohol (3 or more units per day): no Family History (Parent hip fracture): no Glucocorticoids (More than 3mos): no (Ex: prednisone, prednisolone, methylprednisolone, dexamethasone, and hydrocortisone). History of Fracture in Adulthood: yes Secondary Osteoporosis: 1. Type 1 Diabetes: type 2 2. Hyperthyroidism: no 3. Menopause before 45: yes 4. Malnutrition: no 5. Chronic liver disease: no Rheumatoid Arthritis: no Current Tobacco Use: no RISK FACTORS HISTORY OF: Surgery to Spine/Hip(right/left)/Wrist (right/left): no Family History of Osteoporosis: no Active: yes Diet low in dairy products/other sources of calcium: no Postmenopausal woman: yes Take estrogen and/or progesterone medications: no Lost more than 2 inches in height since high school: no Frequent falls: no Poor Health: fair Hyperparathyroidism: no Adrenal Insufficiency:yes MEDICATIONS: Additional Medications: Gilbride, Januvia, heart meds, Allopurinol, Norvasc, Hydroxyzine, zyrtec, Pr ilosec, magnesium, crestor, vit d , lopressor, PreserVision, eye drops, inhaler as needed, cozaar, in sulin Additional History: EXAM MEASUREMENTS: Bone mineral densitometry was performed using the [employer] System. Bone mineral density as measured about the Lumbar spine is: ----- L1-L4(G/cm2): 1.298 T Score Values are as follows: ----- L1: 0.5 ----- L2: -0.3 ----- L3: 1.4 ----- L4: 1.9 ----- L1-L4: 1.0 Z Score Values are as follows: ----- L1: 1.0 ----- L2: 0.2 ----- L3: 1.9 ----- L4: 2.4 ----- L1-L4: 1.4 Bone mineral density has: increased 5.3 % since study of: 2016 Bone mineral density about the R hip (g/cm2): 0.857 Bone mineral density about the L hip (g/cm2): 0.784 T Score values are as follows: -----R Neck: -1.3 -----L Neck: -1.8 -----R Total: -1.0 -----L Total: -1.3 Z Score values are as follows: -----R Neck: -0.5 -----L Neck: -1.1 -----R Total: -0.6 -----L Total: -0.9 Bone mineral density has: decreased -22.5 % since study of: 2016 FRAX%s: The graph provided illustrates a 13.4 % chance for a major osteoporotic fx and a 1.5 % chance for the hips probability for fx in 10 years time. IMPRESSION: Osteopenia (T Score between -2.5 and -1). There is slightly increased risk of fracture and the patient may be considered for treatment. Re-Screen 2-5 years. NOTE: T-SCORE=SD OF THE YOUNG ADULT MEAN.
--- NOTE | 2022-08-30 08:11 | MM ---
Reason for Exam: Screening (asymptomatic). Last mammogram was performed 2 year(s) and 7 month(s) ago. Patient History: Menarche at age 11. Patient has no children. Left ovary removed at age 34. Right ovary removed at age 34. Hysterectomy at age 34. Postmenopausal. Maternal aunt had breast cancer, age 64. Risk Values: Britt 5 year model risk: 1.4%. NCI Lifetime model risk: 8.7%. Prior Study Comparison: 12/10/2016 Bilateral Screening Mammogram, [facility]. 03/31/2018 Bilateral Screening Mammogram, [facility]. 02/04/2020 Bilateral Screening Mammogram, [facility]. Tissue Density: The breast tissue is heterogeneously dense. This may lower the sensitivity of mammography. Findings: Analyzed By CAD. Scattered tiny benign-appearing round calcifications throughout the bilateral breasts are redemonstrated. Left axillary pacemaker device is again partially imaged. Benign-appearing right axillary lymph node is redemonstrated. There is no suspicious group of microcalcifications or new suspicious mass in either breast. Overall Assessment: Benign, BI-RAD 2 Management: Screening Mammogram of both breasts in 1 year. . Patient should continue monthly self-breast exams. A clinical breast exam by your physician is recommended on an annual basis. This exam should not preclude additional follow-up of suspicious palpable abnormalities. Note on Britt scores and lifetime risk: 1. A Britt score greater than 3% is considered moderate risk. If this is the case, consider specialist referral to assess eligibility for a risk reducing agent. 2. If overall lifetime risk for the development of breast cancer is 20% or higher, the patient may qualify for future screening with alternating mammogram and breast MRI. Electronically signed and approved by: Darrell Mathews M.D.
== END | disposition home or self-care (01) ==
LOC: RADBDWWP 15:41
PROVIDERS: ATTEND Obstetrics & Gynecology
DX: Z12.31 Encounter for screening mammogram for malignant neoplasm of breast (principal); E11.9 Type 2 diabetes mellitus without complications; M85.89 Other specified disorders of bone density and structure, multiple sites; Z78.0 Asymptomatic menopausal state; Z80.3 Family history of malignant neoplasm of breast
CPT/HCPCS: 77067; 77080

== ENCOUNTER → 2023-09-03 | Outpatient (CLI) | payer BC ==
--- NOTE | 2023-09-03 16:34 | US ---
EXAMINATION TYPE: US kidneys/renal and bladder DATE OF EXAM: 09/03/2023 COMPARISON: 10/31/2019 CLINICAL INDICATION: Female, 57 years old with history of N18.31 CKD, STAGE 3A; CKD EXAM MEASUREMENTS: Right Kidney: 12.3 x 5.7 x 4.3 cm Left Kidney: 10.3 x 5.1 x 4.5 cm Right Kidney: slight hydronephrosis cortical medullary differentiation maintained. No calculi visuali zed. Left Kidney: column of Adolfo no acute obstructive uropathy or calculus. Bladder: wnl Bilateral Jets seen: no IMPRESSION: Mild dilation of the collecting system on the right which is from prior in 2019. Unclear if this is n ew obstructive uropathy or chronic pyelocaliectasis.
== END | disposition home or self-care (01) ==
LOC: RADUSWWP 15:36
PROVIDERS: ATTEND Internal Medicine
DX: N18.31 Chronic kidney disease, stage 3a (principal)
CPT/HCPCS: 76770

== ENCOUNTER → 2024-01-06 | Outpatient (CLI) | payer BC ==
--- NOTE | 2024-01-06 15:30 | NM ---
EXAMINATION TYPE: NM parathyroid w/ SPECT DATE OF EXAM: 01/06/2024 COMPARISON: NONE CLINICAL INDICATION: Female, 58 years old with history of N18.31 chronic kidney disease; TECHNIQUE: Following administration of 24.4 mCi Tc99m Sestamibi. Anterior projection images of the neck and ches t were obtained 10 minutes and 3 hours post injection. SPECT images of the neck and chest were obtai mir and reconstructed in three axes. FINDINGS: Thyroid tracer washout: Delayed images demonstrate near-complete tracer washout from the thyroid. Parathyroid uptake: None. The two-hour delayed images do not demonstrate any focal abnormal persisten t uptake in the region of the parathyroid glands to suggest parathyroid adenoma. Normal uptake: There is physiological tracer uptake in the visualized myocardium, salivary glands, an d thyroid gland. IMPRESSION: No scintigraphic evidence for parathyroid adenoma.
[2024-01-06 15:41] LABS: ALT 30 U/L (8-44); AST 22 U/L (13-35); Chol/HDL Ratio 3.77 Ratio; LDL Cholesterol,Calculated 55.4 mg/dL (0.0-131.0)
== END | disposition home or self-care (01) ==
LOC: RADNMMAIN 10:59
PROVIDERS: ATTEND Internal Medicine
DX: N18.31 Chronic kidney disease, stage 3a
CPT/HCPCS: 36415; 78071; 80061; 84450; 84460

== ENCOUNTER 2024-08-15 03:21 | Emergency (ER) | payer BC ==
[2024-08-15 04:41] LABS: Basophils # (A) 0.03 10*3/uL (0.00-0.10); Basophils % (A) 0.3 %; Eosinophils # (A) 0.23 10*3/uL (0.04-0.35); Eosinophils % (A) 2.3 %; HCT 41.1 % (37.2-46.3); Lymphocytes # (A) 3.42 10*3/uL (0.90-5.00); Lymphocytes % (A) 34.3 %; MCH 28.7 pg (27.0-32.0); MCHC 34.1 g/dL (32.0-37.0); MCV 84.4 fL (80.0-97.0); Mean Platelet Volume 10.9 fL (9.5-12.2); Monocytes # (A) 0.89 10*3/uL (0.20-1.00); Monocytes % (A) 8.9 %; Neutrophils # (A) 5.37 10*3/uL (1.80-7.70); Platelet Count 212 10*3/uL (140-440); RBC 4.87 10*6/uL (4.10-5.20); RDW 13.1 % (11.5-14.5); WBC 9.96 10*3/uL (4.50-10.00)
[2024-08-15] MEDS: SODIUM CHLORIDE 0.9% 500 ML 500 ML IV ONE ×2 (04:51→06:38)
[2024-08-15 05:12] LABS: Amphetamine Screen,Urine Not Detected (NotDetected); Barbiturate Screen,Urine Not Detected (NotDetected); Benzodiazepines Screen,Urine Not Detected (NotDetected); Cocaine Screen,Urine Not Detected (NotDetected); Methadone Screen, Urine Not Detected (NotDetected); Opiate Screen,Urine Not Detected (NotDetected); Oxycodone Screen, Urine Not Detected (NotDetected); Phencyclidine Screen,Urine Not Detected (NotDetected); Tricyclic Antidepressant,Urine Not Detected (NotDetected); Urn Cannabinoid Scrn Not Detected (NotDetected)
[2024-08-15 05:12] LABS: ALT 42 U/L (4-34); AST 29 U/L (14-36); Acetaminophen <10.0 ug/mL; African American GFR (CKD) 81 (>60 ml/min/1.73 sqM); Alcohol <10 mg/dL; Alkaline Phosphatase 114 U/L (38-126); Anion Gap 14 mmol/L; Blood Urea Nitrogen 28 mg/dL (7-17); Calcium 10.5 mg/dL (8.4-10.2); Carbon Dioxide 24 mmol/L (22-30); Chloride 96 mmol/L (98-107); Glucose 447 mg/dL (74-99); Non-African American GFR(CKD) 71 (>60 ml/min/1.73 sqM); Potassium 4.3 mmol/L (3.5-5.1); Salicylate <1.0 mg/dL; Sodium 134 mmol/L (137-145); Total Bilirubin 0.7 mg/dL (0.2-1.3); Total Protein 8.2 g/dL (6.3-8.2)
[2024-08-15 05:35] LABS: VBG PH 7.37 (7.31-7.41)
[2024-08-15] MEDS: INSULIN REGULAR 100 UNIT/ML VIAL (IV) IV ONE (05:40)
[2024-08-15 05:43] LABS: Glucose,Whole Blood 415 mg/dL (70-110)
[2024-08-15 06:11] LABS: Appearance,Urine Clear (Clear); Bilirubin,Urine Negative (Negative); Blood,Urine Negative (Negative); Color,Urine Colorless; Glucose,Urine (UA) 3+ (Negative); Ketones,Urine Negative (Negative); Leukocyte Esterase,Urine Negative (Negative); Nitrite,Urine Negative (Negative); Protein,Urine Negative (Negative); Specific Gravity,Urine 1.006 (1.001-1.035); Urobilinogen,Urine <2.0 mg/dL (<2.0)
[2024-08-15 06:35] LABS: Glucose,Whole Blood 406 mg/dL (70-110)
--- NOTE | 2024-08-15 07:50 | ED ---
General Adult HPI - General Chief complaint: Overdose Stated complaint: overdose of medication Time Seen by Provider: 08/15/24 04:07 Source: patient Mode of arrival: wheelchair Limitations: no limitations - History of Present Illness Initial comments: Patient is a 58-year-old female history of pacemaker, cardiomyopathy, CHF on Lasix, presenting today for accidental overdose. Patient states that at 12;30AM this morning she was taking her pill bottle of nightly medications. She then realized at 4:30AM this morning that she still had a pill bottle full of her nightly medications and instead had ingested 8 to 10 tablets of 20 mg Lasix. Denies additional coingestants. Denies attempts at self-harm or thoughts of self-harm. She currently denies dizziness, lightheadedness, chest pain, shortness of breath, changes in vision, nausea, vomiting, abdominal pain. Endorses having to urinate more than normal. Otherwise denies additional symptoms - Related Data Home Medications Medication Instructions Recorded Confirmed Cetirizine HCl [Zyrtec] 10 mg PO HS 01/23/14 06/25/21 Dorzolamide HCl/Timolol Maleat 1 drop BOTH EYES BID 01/23/14 06/25/21 [Cosopt Eye Drops] Omeprazole [PriLOSEC] 20 mg PO DAILY 01/23/14 06/25/21 Ergocalciferol [Vitamin D2 50,000 unit PO Q30D 07/22/17 06/25/21 (DRISDOL)] Rosuvastatin Calcium [Crestor] 5 mg PO HS 07/22/17 06/25/21 Magnesium Oxide 400 mg PO BID 08/22/18 06/25/21 Vit C/E/Zn/Coppr/Lutein/Zeaxan 1 cap PO BID 08/22/18 06/25/21 [Preservision Areds 2 Softgel] Aspirin EC [Ecotrin Low Dose] 81 mg PO DAILY 03/19/19 06/25/21 Metoprolol Tartrate [Lopressor] 25 mg PO BID 03/19/19 06/25/21 Apixaban [Eliquis] 5 mg PO BID 10/29/19 06/25/21 allopurinoL [Zyloprim] 100 mg PO DAILY 10/29/19 06/25/21 hydrALAZINE HCL 25 mg PO BID 10/29/19 06/25/21 sitaGLIPtin PHOSPHATE [Januvia] 100 mg PO DAILY 10/29/19 06/25/21 Cranberry 2500 2,500 mg PO DAILY 06/25/21 06/25/21 Ferrous Sulfate [Iron (65 MG 325 mg PO DAILY 06/25/21 06/25/21 Elemental)] Furosemide [Lasix] 20 mg PO DAILY 06/25/21 06/25/21 Latanoprost Ophth [Xalatan 0.005%] 1 drop BOTH EYES HS 06/25/21 06/25/21 Salmeterol 50 mcg [Serevent Diskus] 1 puff INHALATION RT-BID 06/25/21 06/25/21 amLODIPine [Norvasc] 10 mg PO DAILY 06/25/21 06/25/21 calcitrioL [Rocaltrol] 0.25 mcg PO SA 06/25/21 06/25/21 Previous Rx's Medication Instructions Recorded Acetaminophen Tab [Tylenol] 650 mg PO Q6HR PRN tab 06/26/21 Insulin Glargine,Hum.rec.anlog 15 unit SQ HS #4 each 06/26/21 [Lantus Solostar Pen] Losartan [Cozaar] 50 mg PO DAILY #30 tab 06/26/21 Omeprazole 20 mg PO DAILY #30 tab 06/26/21 Ondansetron Odt [Zofran Odt] 4 mg PO Q8HR PRN 3 Days #9 tab 06/26/21 glyBURIDE [Diabeta] 5 mg PO AC-BID #60 tablet 06/26/21 Allergies Allergy/AdvReac Type Severity Reaction Status Date / Time fluticasone propionate Allergy Unknown Verified 08/15/24 03:32 [From Flovent Diskus] methocarbamol [From Robaxin] Allergy Unknown Verified 08/15/24 03:32 Milk Containing Products Allergy Abdominal Verified 08/15/24 03:32 (Dairy) Pain [Milk Containing Products] Penicillins Allergy Unknown Verified 08/15/24 03:32 Review of Systems ROS Statement: Those systems with pertinent positive or pertinent negative responses have been documented in the HPI. ROS Other: All systems not noted in ROS Statement are negative. Past Medical History Past Medical History: Asthma, Cancer, Heart Failure, Diabetes Mellitus, Hyperlipidemia, Hypertension Additional Past Medical History / Comment(s): cervical CA, glaucoma (both eyes). pt has hypertrophic cardiomyopathy History of Any Multi-Drug Resistant Organisms: None Reported Past Surgical History: Heart Catheterization, Hysterectomy Additional Past Surgical History / Comment(s): cyst removed rt wrist. surgery- septum of heart shaved down and scar tissue removed. EZEKIEL. Open heart surgery 2006. Pacemaker placed February 20, 2019. Aortic Valve replacement 02/20/19. Iliac Stent right leg 02/12/19 Past Anesthesia/Blood Transfusion Reactions: No Reported Reaction Past Psychological History: No Psychological Hx Reported Smoking Status: Never smoker Past Alcohol Use History: None Reported Past Drug Use History: None Reported - Past Family History Father Family Medical History: Myocardial Infarction ([place]) Mother Family Medical History: AFIB, Cancer Additional Family Medical History / Comment(s): unknown type of CA General Exam - General Exam Comments Initial Comments: PE: CONSTITUTIONAL: No apparent distress, well appearing SKIN: Warm, dry, no jaundice, hives or petechiae EYES: Pupils are equally round, extraocular movements intact without nystagmus, clear conjunctiva, non-icteric sclera HENT: Normocephalic, atraumatic, moist mucus membranes, oropharynx clear without exudates NECK: , Full range of motion, normal appearance PULMONARY: Clear to auscultation without wheezes, rhonchi, or rales, normal excursion, no accessory muscle use and no stridor CARDIOVASCULAR: Regular rate, rhythm, normal S1 and S2. No appreciated murmurs, rubs or gallops. Strong radial pulses with intact distal perfusion. No lower extremity edema GASTROINTESTINAL: Soft, active bowel sounds throughout, non-tender, non- distended, no palpable masses, no rebound or guarding. No hepatosplenomegaly GENITOURINARY: MUSCULOSKELETAL: Extremities have no gross deformity, no edema, redness, or swelling. No calf swelling NEUROLOGIC:_a/o x 3, GCS 15, normal mentation and speech. Moves all extremities x 4 without motor or sensory deficit PSYCHIATRIC:_normal mood and affect, thought process is clear and linear Limitations: no limitations Course Vital Signs 08/15/24 08/15/24 08/15/24 03:28 05:00 06:00 Temperature 97.8 F Pulse Rate 93 64 60 Respiratory 18 18 18 Rate Blood Pressure 177/90 151/79 144/85 O2 Sat by Pulse 100 98 98 Oximetry 08/15/24 08/15/24 08/15/24 07:08 08:18 09:09 Temperature 98 F Pulse Rate 60 61 72 Respiratory 16 18 18 Rate Blood Pressure 138/74 128/72 128/78 O2 Sat by Pulse 94 L 94 L 99 Oximetry EKG Findings - EKG Comments: EKG Findings:: Electronic paced rhythm rate 72 bpm GA interval 128 ms QT/QTc 450/480 ms, no ST elevations or depressions, no arrhythmia Medical Decision Making - Medical Decision Making Was pt. sent in by a medical professional or institution (, [facility], INCIDENT RESPONSE CONSULTANT, urgent care, hospital, or prison...) When possible be specific @ -No Did you speak to anyone other than the patient for history (EMS, parent, family, police, friend...)? What history was obtained from this source @ -No Did you review nursing and triage notes (agree or disagree)? Why? @ -I reviewed and agree with nursing and triage notes Were old charts reviewed (outside hosp., previous admission, EMS record, old EKG, old radiological studies, urgent care reports/EKG's, prison records)? Report findings @ -Medical records reviewed Differential Diagnosis (chest pain, altered mental status, abdominal pain women, abdominal pain men, vaginal bleeding, weakness, fever, dyspnea, syncope, headache, dizziness, GI bleed, back pain, seizure, CVA, palpatations, mental health, musculoskeletal)? @Differential diagnosis remains right over top considerations include accidental Lasix ingestion, hypokalemia, SARAN, hypotension, serotonin syndrome, NMS, acetaminophen overdose, salicylate toxicity, anticholinergic toxicity this is not inclusive list EKG interpreted by me (3pts min.). @ -As above X-rays interpreted by me (1pt min.). @ -None done CT interpreted by me (1pt min.). @ -None done U/S interpreted by me (1pt. min.). @ -None done What testing was considered but not performed or refused? (CT, X-rays, U/S, labs)? Why? @ -None What meds were considered but not given or refused? Why? @ -None Did you discuss the management of the patient with other professionals (professionals i.e. [facility] [place], INCIDENT RESPONSE CONSULTANT, lab, RT, psych nurse, rn social work, clinical informatics director, teacher, financial aid officer, manager of case management)? Give summary @ -No Was smoking cessation discussed for >3mins.? @ -No Was critical care preformed (if so, how long)? @ -No Were there social determinants of health that impacted care today? How? (Eve elessness, low income, unemployed, alcoholism, drug addiction, transportation, low edu. Level, literacy, decrease access to med. care, prison, rehab)? @ -No Was there de-escalation of care discussed even if they declined (Discuss DNR or withdrawal of care, Hospice)? @ -No What co-morbidities impacted this encounter? (DM, HTN, Smoking, COPD, CAD, Cancer, CVA, ARF, Chemo, Hep., AIDS, mental health diagnosis, sleep apnea, morbid obesity)? @Cardiomyopathy, CHF Was patient admitted / discharged? Hospital course, mention meds given and route, prescriptions, significant lab abnormalities, going to OR and other pertinent info. @Discharge- Patient is a pleasant 58-year-old female presenting today for accidental ingestion of 8 to 10 tablets of home 20 mg Lasix. Vital signs stable on arrival. Patient currently asymptomatic with exception of increased urine output. Poison control contacted and recommended observation for 8 hours from time of ingestion, they recommend monitoring for electrolyte abnormality, signs of dehydration or hypotension. Since ingestion was at 1230 this morning she will be observed until 8:30 AM. Basic labs, including salicylate and acetaminophen levels will be obtained. Patient agreeable plan of care. Ordered 500 cc IV fluid bolus given patient will inevitably be diuresing. Lab reviewed. Patient is significantly hyperglycemic. Anion gap of 14. Acetone is negative. VBG does not show signs of acidosis. Given 10 units IV insulin. Additional 500 cc IV fluids. Will avoid large fluid boluses given history CHF. Repeat check blood glucose remains elevated at 406. Ordered subQ insulin. On reassessment patient currently denies any additional symptoms. She requests to forego subcutaneous insulin as she would like to manage her blood sugar at home. I feel this is reasonable as patient is not significantly symptomatic. SubQ insulin will be canceled. Patient discharged at 8:30 AM after recommended 8 hour observation period, remained asymptomatic, vitals remained stable. In my medical judgment there is currently no evidence of an immediate life-th reatening or surgical condition. Discharge is therefore indicated at this time. Discharge treatment instructions, follow up instructions, and appropriate emergency department return precautions were discussed with the patient and/or medical decision maker. Patient and/or medical decision maker expressed understanding of and agreed with the treatment plan, follow up instructions, and emergency department return precaution. All patient's and/or medical decision maker's questions were answered. Undiagnosed new problem with uncertain prognosis? @ -No Drug Therapy requiring intensive monitoring for toxicity (Heparin, Nitro, Insulin, Cardizem)? @ -No Were any procedures done? @ -No Diagnosis/symptom? Accidental ingestion/overdose, hyperglycemia Acute, or Chronic, or Acute on Chronic? @Acute Uncomplicated (without systemic symptoms) or Complicated (systemic symptoms)? @Uncomplicated Side effects of treatment? @ -No Exacerbation, Progression, or Severe Exacerbation? @ -No Poses a threat to life or bodily function? How? (Chest pain, [place], [place], pneumonia, PE, COPD, DKA, ARF, appy, cholecystitis, CVA, Diverticulitis, Homicidal, Suicidal, threat to staff... and all critical care pts) @ -No not at time of discharge - Lab Data Result diagrams: 08/15/24 04:30 08/15/24 04:30 Lab Results 08/15/24 08/15/24 08/15/24 Range/Units 04:30 04:30 04:45 WBC 9.96 (4.50-10.00) 10*3/uL RBC 4.87 (4.10-5.20) 10*6/uL Hgb 14.0 (12.0-15.0) g/dL Hct 41.1 (37.2-46.3) % MCV 84.4 (80.0-97.0) fL MCH 28.7 (27.0-32.0) pg MCHC 34.1 (32.0-37.0) g/dL Plt Count 212 (140-440) 10*3/uL MPV 10.9 (9.5-12.2) fL Immature Gran % (Auto) 0.2 % Neutrophils % 54.0 % Lymphocytes % 34.3 % Monocytes % 8.9 % Eosinophils % 2.3 % Basophils % 0.3 % Immature Gran # 0.02 (0.00-0.04) 10*3/uL Neutrophils # 5.37 (1.80-7.70) 10*3/uL Lymphocytes # 3.42 (0.90-5.00) 10*3/uL Monocytes # 0.89 (0.20-1.00) 10*3/uL Eosinophils # 0.23 (0.04-0.35) 10*3/uL Basophils # 0.03 (0.00-0.10) 10*3/uL VBG pH (7.31-7.41) VBG pCO2 (37-51) mmHg VBG HCO3 (24-28) mmol/L Sodium 134 L (137-145) mmol/L Potassium 4.3 (3.5-5.1) mmol/L Chloride 96 L (98-107) mmol/L Carbon Dioxide 24 (22-30) mmol/L Anion Gap 14 mmol/L BUN 28 H (7-17) mg/dL Creatinine 0.90 (0.52-1.04) mg/dL Est GFR (CKD-EPI)AfAm 81 (>60 ml/min/1.73 sqM) Est GFR (CKD-EPI)NonAf 71 (>60 ml/min/1.73 sqM) Glucose 447 H (74-99) mg/dL POC Glucose (mg/dL) (70-110) mg/dL POC Glu Shade Maker ID Calcium 10.5 H (8.4-10.2) mg/dL Total Bilirubin 0.7 (0.2-1.3) mg/dL AST 29 (14-36) U/L ALT 42 H (4-34) U/L Alkaline Phosphatase 114 (38-126) U/L Total Protein 8.2 (6.3-8.2) g/dL Albumin 5.0 (3.5-5.0) g/dL Urine Color Urine Appearance (Clear) Urine pH (5.0-8.0) Ur Specific [place] (1.001-1.035) Urine Protein (Negative) Urine Glucose (UA) (Negative) Urine Ketones (Negative) Urine Blood (Negative) Urine Nitrite (Negative) Urine Bilirubin (Negative) Urine Urobilinogen (<2.0) mg/dL Ur Leukocyte Esterase (Negative) Salicylates <1.0 mg/dL Urine Opiates Screen Not Detected (NotDetected) Ur Oxycodone Screen Not Detected (NotDetected) Urine Methadone Screen Not Detected (NotDetected) Acetaminophen <10.0 ug/mL Ur Barbiturates Screen Not Detected (NotDetected) U Tricyclic Antidepress Not Detected (NotDetected) Ur Phencyclidine Scrn Not Detected (NotDetected) Ur Amphetamines Screen Not Detected (NotDetected) U Methamphetamines Scrn Not Detected (NotDetected) U Benzodiazepines Scrn Not Detected (NotDetected) Urine Cocaine Screen Not Detected (NotDetected) U Marijuana (THC) Screen Not Detected (NotDetected) Serum Alcohol <10 mg/dL Acetone, Qual (Negative) 08/15/24 08/15/24 08/15/24 Range/Units 05:19 05:28 05:28 WBC (4.50-10.00) 10*3/uL RBC (4.10-5.20) 10*6/uL Hgb (12.0-15.0) g/dL Hct (37.2-46.3) % MCV (80.0-97.0) fL MCH (27.0-32.0) pg MCHC (32.0-37.0) g/dL Plt Count (140-440) 10*3/uL MPV (9.5-12.2) fL Immature Gran % (Auto) % Neutrophils % % Lymphocytes % % Monocytes % % Eosinophils % % Basophils % % Immature Gran # (0.00-0.04) 10*3/uL Neutrophils # (1.80-7.70) 10*3/uL Lymphocytes # (0.90-5.00) 10*3/uL Monocytes # (0.20-1.00) 10*3/uL Eosinophils # (0.04-0.35) 10*3/uL Basophils # (0.00-0.10) 10*3/uL VBG pH 7.37 (7.31-7.41) VBG pCO2 46 (37-51) mmHg VBG HCO3 26 (24-28) mmol/L Sodium (137-145) mmol/L Potassium (3.5-5.1) mmol/L Chloride (98-107) mmol/L Carbon Dioxide (22-30) mmol/L Anion Gap mmol/L BUN (7-17) mg/dL Creatinine (0.52-1.04) mg/dL Est GFR (CKD-EPI)AfAm (>60 ml/min/1.73 sqM) Est GFR (CKD-EPI)NonAf (>60 ml/min/1.73 sqM) Glucose (74-99) mg/dL POC Glucose (mg/dL) (70-110) mg/dL POC Glu Shade Maker ID Calcium (8.4-10.2) mg/dL Total Bilirubin (0.2-1.3) mg/dL AST (14-36) U/L ALT (4-34) U/L Alkaline Phosphatase (38-126) U/L Total Protein (6.3-8.2) g/dL Albumin (3.5-5.0) g/dL Urine Color Colorless Urine Appearance Clear (Clear) Urine pH 6.0 (5.0-8.0) Ur Specific [place] 1.006 (1.001-1.035) Urine Protein Negative (Negative) Urine Glucose (UA) 3+ H (Negative) Urine Ketones Negative (Negative) Urine Blood Negative (Negative) Urine Nitrite Negative (Negative) Urine Bilirubin Negative (Negative) Urine Urobilinogen <2.0 (<2.0) mg/dL Ur Leukocyte Esterase Negative (Negative) Salicylates mg/dL Urine Opiates Screen (NotDetected) Ur Oxycodone Screen (NotDetected) Urine Methadone Screen (NotDetected) Acetaminophen ug/mL Ur Barbiturates Screen (NotDetected) U Tricyclic Antidepress (NotDetected) Ur Phencyclidine Scrn (NotDetected) Ur Amphetamines Screen (NotDetected) U Methamphetamines Scrn (NotDetected) U Benzodiazepines Scrn (NotDetected) Urine Cocaine Screen (NotDetected) U Marijuana (THC) Screen (NotDetected) Serum Alcohol mg/dL Acetone, Qual Negative (Negative) 08/15/24 08/15/24 Range/Units 05:40 06:34 WBC (4.50-10.00) 10*3/uL RBC (4.10-5.20) 10*6/uL Hgb (12.0-15.0) g/dL Hct (37.2-46.3) % MCV (80.0-97.0) fL MCH (27.0-32.0) pg MCHC (32.0-37.0) g/dL Plt Count (140-440) 10*3/uL MPV (9.5-12.2) fL Immature Gran % (Auto) % Neutrophils % % Lymphocytes % % Monocytes % % Eosinophils % % Basophils % % Immature Gran # (0.00-0.04) 10*3/uL Neutrophils # (1.80-7.70) 10*3/uL Lymphocytes # (0.90-5.00) 10*3/uL Monocytes # (0.20-1.00) 10*3/uL Eosinophils # (0.04-0.35) 10*3/uL Basophils # (0.00-0.10) 10*3/uL VBG pH (7.31-7.41) VBG pCO2 (37-51) mmHg VBG HCO3 (24-28) mmol/L Sodium (137-145) mmol/L Potassium (3.5-5.1) mmol/L Chloride (98-107) mmol/L Carbon Dioxide (22-30) mmol/L Anion Gap mmol/L BUN (7-17) mg/dL Creatinine (0.52-1.04) mg/dL Est GFR (CKD-EPI)AfAm (>60 ml/min/1.73 sqM) Est GFR (CKD-EPI)NonAf (>60 ml/min/1.73 sqM) Glucose (74-99) mg/dL POC Glucose (mg/dL) 415 H 406 H (70-110) mg/dL POC Glu Shade Maker ID Jeanine Berkowitz Calcium (8.4-10.2) mg/dL Total Bilirubin (0.2-1.3) mg/dL AST (14-36) U/L ALT (4-34) U/L Alkaline Phosphatase (38-126) U/L Total Protein (6.3-8.2) g/dL Albumin (3.5-5.0) g/dL Urine Color Urine Appearance (Clear) Urine pH (5.0-8.0) Ur Specific [place] (1.001-1.035) Urine Protein (Negative) Urine Glucose (UA) (Negative) Urine Ketones (Negative) Urine Blood (Negative) Urine Nitrite (Negative) Urine Bilirubin (Negative) Urine Urobilinogen (<2.0) mg/dL Ur Leukocyte Esterase (Negative) Salicylates mg/dL Urine Opiates Screen (NotDetected) Ur Oxycodone Screen (NotDetected) Urine Methadone Screen (NotDetected) Acetaminophen ug/mL Ur Barbiturates Screen (NotDetected) U Tricyclic Antidepress (NotDetected) Ur Phencyclidine Scrn (NotDetected) Ur Amphetamines Screen (NotDetected) U Methamphetamines Scrn (NotDetected) U Benzodiazepines Scrn (NotDetected) Urine Cocaine Screen (NotDetected) U Marijuana (THC) Screen (NotDetected) Serum Alcohol mg/dL Acetone, Qual (Negative) Disposition Clinical Impression: Hyperglycemia, Accidental medication overdose Disposition: HOME SELF-CARE Condition: Stable Instructions (If sedation given, give patient instructions): Adult Overdose (ED) Additional Instructions: Every disease is a spectrum and a small chance still exists that a serious condition could develop, for this reason, please monitor yourself closely for new, changing or worsening symptoms, symptoms that persist beyond 48 hours, lightheadedness or dizziness, episodes of passing out, shortness of breath, feeling confused fever, inability to tolerate/keep down fluids or your medications, inability to follow up with outpatient providers as instructed and should you experience these symptoms or should you have any further concerns for your wellbeing please return to the ED or call 911 immediately. Please hold off on your usual dose of Lasix today. PLEASE call your primary care physician as soon as possible to arrange / discuss plan for followup appointment. Appointment in the next 1-3 days is strongly encouraged if possible. PLEASE let us know here before you leave if there is anything further we can do to be of any assistance. Take care and feel Better! Is patient prescribed a controlled substance at d/c from ED?: No Referrals: None,Stated [Primary Care Provider] - 1-2 days Forms: Area PCPs
[2024-08-15] MEDS: INSULIN LISPRO (HumaLOG) 100 UNIT/ML 10 mL VL SQ ONE (08:11)
[2024-08-15 08:18] VITALS: RESP 18
[2024-08-15 09:11] VITALS: BP 128/78; PULSE 72; TEMP 98
== END 2024-08-15 09:11 | disposition home or self-care (01) ==
LOC: EC 03:21
DX: T50.1X1A Poisoning by loop [high-ceiling] diuretics, accidental (unintentional), initial encounter (principal); E11.65 Type 2 diabetes mellitus with hyperglycemia; I42.2 Other hypertrophic cardiomyopathy; I50.9 Heart failure, unspecified; Z88.0 Allergy status to penicillin; Z91.011 Allergy to milk products; Z88.8 Allergy status to other drugs, medicaments and biological substances
CPT/HCPCS: 36415; 80053; 80143; 80179; 80306; 80320; 81003; 82009; 82803; 85025; 93005; 96360; 96361; 99284